=== PATIENT | male | born 1960 | race Caucasian/White ===

== ENCOUNTER 2019-04-24 08:31 | Emergency (ER) | payer BC ==
--- NOTE | 2019-04-24 09:21 | EDM.PDOC ---
ED HPI GENERAL MEDICAL PROBLEM - General Chief Complaint: Chest Pain Stated Complaint: CHEST PAIN, TIGHTNESS, SOB, PAIN IN RIGHT ARM Time Seen by Provider: 04/24/19 09:05 Source of Information: Reports: Patient History Limitations: Reports: No Limitations - History of Present Illness INITIAL COMMENTS - FREE TEXT/NARRATIVE: 58-year-old male in the emergency room today with substernal chest pain with breathing. It started at 11 PM last night, 10 hours ago and became significant enough for he couldn't sleep lying down. He is not short of breath at has pain with breathing. It is much better sitting up. It does not radiate but he had some mild right arm tingling this morning so came in to have it checked. He went into the clinic and sent was sent to the emergency room. He has no fever or chills, no cough, no shortness of breath or abdominal pain. He has pain only with a deep breath, it is not related to any other activity other than lying down. His last cardiology recheck 2 months ago was excellent, the extended his recheck appointment to 2 years. He has a pacemaker and received cardiac stents 3 years ago. Onset: Gradual Duration: Hour(s): (Symptoms have been for 10 hours) Location: Reports: Chest Quality: Reports: Sharp, Stabbing (With deep breath) Worsens with: Reports: Other (Breathing and lying down is more painful) Anterior Chest Pain Score (Numeric/FACES): 3 - Related Data Allergies Allergy/AdvReac Type Severity Reaction Status Date / Time No Known Allergies Allergy Verified 04/24/19 08:41 Home Meds: Home Meds Aspirin 81 mg PO DAILY 01/12/16 [History] atorvaSTATin [Lipitor] 40 mg PO ONETIME 04/14/16 [History] Carvedilol [Coreg] 25 mg PO BID 04/24/19 [History] Lisinopril 20 mg PO BID 04/24/19 [History] Spironolactone [Aldactone] 25 mg PO DAILY 04/24/19 [History] Past Medical History Cardiovascular History: Reports: Aneurysm, CAD, Heart Failure, High Cholesterol , Hypertension, Pacemaker, Stents Gastrointestinal History: Reports: Pancreatitis Other Gastrointestinal History: stent placed in the pancreatict duct. Musculoskeletal History: Reports: Back Pain, Chronic Endocrine/Metabolic History: Reports: Obesity/BMI 30+ - Infectious Disease History Infectious Disease History: Reports: Chicken Pox - Past Surgical History HEENT Surgical History: Reports: Oral Surgery GI Surgical History: Reports: Appendectomy, Cholecystectomy, Colonoscopy Social & Family History - Family History Cardiac: Reports: CAD, Cardiomyopathy Neurological: Reports: CVA - Tobacco Use Smoking Status *Q: Never Smoker Second Hand Smoke Exposure: No - Caffeine Use Caffeine Use: Reports: Coffee, Soda - Recreational Drug Use Recreational Drug Use: No ED ROS GENERAL - Review of Systems Review Of Systems: See Below Constitutional: Denies: Fever, Chills HEENT: Reports: No Symptoms Respiratory: Reports: Pleuritic Chest Pain. Denies: Shortness of Breath Cardiovascular: Reports: Chest Pain GI/Abdominal: Denies: Abdominal Pain, Nausea, Vomiting : Reports: No Symptoms Skin: Reports: No Symptoms. Denies: Rash Neurological: Reports: Paresthesia (Mild tingling extending down the right arm) Psychiatric: Reports: No Symptoms ED EXAM, GENERAL - Physical Exam Exam: See Below Exam Limited By: No Limitations General Appearance: Alert, No Apparent Distress Head: Atraumatic Respiratory/Chest: No Respiratory Distress, Lungs Clear Cardiovascular: Regular Rate, Rhythm GI/Abdominal: Soft, Non-Tender Extremities: Normal Inspection. No: Pedal Edema Neurological: Alert, Oriented EKG INTERPRETATION EKG Date: 04/24/19 Time: 09:25 Comparison: No Change EKG Interpretation Comments: Paced rhythm Course - Vital Signs Last Recorded V/S: Last Vital Signs Temp 97.5 F 04/24/19 09:53 Pulse 66 04/24/19 09:53 Resp 16 04/24/19 09:53 BP 156/87 H 04/24/19 09:53 Pulse Ox 94 L 04/24/19 09:53 - Orders/Labs/Meds Orders: Active Orders 24 hr Category Date Time Status EKG Documentation Completion [RC] ASDIRECTED Care 04/24/19 09:13 Active EKG 12 Lead [EK] Routine Ther 04/24/19 09:13 Ordered Labs: Laboratory Tests 04/24/19 Range/Units 09:22 Troponin I < 0.017 (0.000-0.056) ng/mL - Re-Assessments/Exams Free Text/Narrative Re-Assessment/Exam: 04/24/19 09:45 Vitals are stable, patient's EKG shows a atrial paced rhythm as expected. Exam was basically unremarkable, so a troponin and two-view chest x-ray were obtained. 04/24/19 09:52 Two-view chest x-ray shows no acute findings and troponin 0. Patient remained comfortable. I encouraged him to add an anti-inflammatory to his medications for the next couple of days and increase activity as tolerated. He'll return if he gets chest pain with activity or his symptoms change such as fever or more shortness of breath. Also consider rechecking early next week if not improving satisfactorily. Departure - Departure Time of Disposition: 09:59 Disposition: Home, Self-Care 01 Condition: Good Clinical Impression: Chest pain, atypical - Discharge Information Instructions: Nonspecific Chest Pain Referrals: Denny Gaviria MD [Primary Care Provider] - Forms: ED Department Discharge Care Plan Goals: Continue your current medications, adding ibuprofen and Tylenol as needed for pain. Increase activity as tolerated and return anytime if worsening such as increased shortness of breath or chest pain, fever, abdominal pain or other concerns. Consider rechecking next week if not improving satisfactorily. - My Orders Last 24 Hours: My Active Orders 04/24/19 09:13 EKG Documentation Completion [RC] ASDIRECTED EKG 12 Lead [EK] Routine - Assessment/Plan Last 24 Hours: My Active Orders 04/24/19 09:13 EKG Documentation Completion [RC] ASDIRECTED EKG 12 Lead [EK] Routine
[2019-04-24 09:54] VITALS: BP 156/87; PULSE 66
--- NOTE | 2019-04-24 10:03 | CRLCR ---
Indication: Dyspnea Technique: Chest 2 views Comparison: None Findings: Cardiovascular and mediastinum: AICD is present. Moderate cardiomegaly. Normal pulmonary vasculature. Lungs and pleural spaces: Lungs are clear. No sign of infiltrate or mass. No sign of pleural effusion. No pneumothorax. Bones and soft tissues: No significant findings. Impression: Moderate cardiomegaly without further evidence of heart failure or other acute abnormality. Dictated by Jesus Lazo MD @ 04/24/2019 10:01:53 AM Dictated by: Jesus Lazo MD @ 04/24/2019 10:02:04 (Electronically Signed)
== END 2019-04-24 09:59 | disposition home or self-care (01) ==
LOC: JP.ED 08:31
DX: R07.89 Other chest pain (principal); I11.0 Hypertensive heart disease with heart failure; I50.9 Heart failure, unspecified; E66.9 Obesity, unspecified; Z79.82 Long term (current) use of aspirin; Z79.899 Other long term (current) drug therapy; Z95.5 Presence of coronary angioplasty implant and graft; Z98.890 Other specified postprocedural states; Z90.49 Acquired absence of other specified parts of digestive tract; Z95.0 Presence of cardiac pacemaker
CPT/HCPCS: 36415; 71046; 84484; 93005; 99285-25

== ENCOUNTER 2021-07-28 17:34 | Inpatient (IN) | payer BC, MEDICAID ==
--- NOTE | 2021-07-28 18:59 | EDM.PDOC ---
ED HPI GENERAL MEDICAL PROBLEM - General Chief Complaint: Respiratory Problem Stated Complaint: COVID POSITIVE SOB Time Seen by Provider: 07/28/21 18:37 Source of Information: Reports: Patient History Limitations: Reports: No Limitations - History of Present Illness INITIAL COMMENTS - FREE TEXT/NARRATIVE: Natalio is a 61-year-old male presenting to the ED for increasing shortness of breath and intermittent hypoxia secondary to being diagnosed with COVID-19. Patient was starting to exhibit symptoms 1 week ago and underwent testing at the [facility] yesterday which was positive for COVID-19. He is set up for monoclonal antibody therapy at [facility] on Sunday. The patient has a past medical history significant for coronary artery disease, obstructive sleep apnea using CPAP, obesity, and a dilated cardiomyopathy. He uses a CPAP at night to sleep. He notes that when he has been sitting in his recliner at home watching TV that his SPO2 has dropped below 90%. In the ED, the patient's SPO2 is been 93 to 94% on room air. Patient has had diminished appetite for the last several days but has been pushing fluids. - Related Data Allergies Allergy/AdvReac Type Severity Reaction Status Date / Time No Known Allergies Allergy Verified 07/28/21 18:07 Home Meds: Home Meds Aspirin 81 mg PO DAILY 01/12/16 [History] atorvaSTATin [Lipitor] 40 mg PO ONETIME 04/14/16 [History] Lisinopril 20 mg PO BID 04/24/19 [History] Spironolactone [Aldactone] 25 mg PO DAILY 04/24/19 [History] carvediloL [Coreg] 25 mg PO BID 04/24/19 [History] Albuterol Sulfate [Albuterol Sulfate Hfa] 8.5 gm IH Q4H PRN 07/28/21 [History] Apixaban [Eliquis] 5 mg PO DAILY 07/28/21 [History] Fluticasone Propion/Salmeterol [Advair Hfa 230-21 Mcg Inhaler] 2 puff IH Q8H PRN 07/28/21 [History] Ondansetron [Zofran ODT] 4 mg PO Q6H PRN 07/28/21 [History] Sotalol [Betapace, Sorine] 80 mg PO BID 07/28/21 [History] Past Medical History HEENT History: Reports: Impaired Vision Cardiovascular History: Reports: Aneurysm, CAD, Heart Failure, High Cholesterol, Hypertension, Pacemaker, Stents Respiratory History: Reports: Sleep Apnea Other Respiratory History: cpap Gastrointestinal History: Reports: Pancreatitis Other Gastrointestinal History: stent placed in the pancreatict duct. Musculoskeletal History: Reports: Back Pain, Chronic Endocrine/Metabolic History: Reports: Obesity/BMI 30+ Hematologic History: Reports: Anticoagulation Therapy - Infectious Disease History Infectious Disease History: Reports: Chicken Pox, Novel Coronavirus - Past Surgical History Head Surgeries/Procedures: Reports: None HEENT Surgical History: Reports: Oral Surgery Cardiovascular Surgical History: Reports: Coronary Artery Stent Respiratory Surgical History: Reports: None GI Surgical History: Reports: Appendectomy, Cholecystectomy, Colonoscopy Endocrine Surgical History: Reports: None Musculoskeletal Surgical History: Reports: None Dermatological Surgical History: Reports: None Social & Family History - Family History Cardiac: Reports: CAD, Cardiomyopathy Neurological: Reports: CVA - Tobacco Use Tobacco Use Status *Q: Never Tobacco User Second Hand Smoke Exposure: No - Caffeine Use Caffeine Use: Reports: Coffee - Recreational Drug Use Recreational Drug Use: No ED ROS GENERAL - Review of Systems Review Of Systems: See Below Constitutional: Reports: Weakness, Decreased Appetite HEENT: Reports: Rhinitis Respiratory: Reports: Shortness of Breath, Cough Cardiovascular: Reports: No Symptoms Endocrine: Reports: No Symptoms GI/Abdominal: Reports: Decreased Appetite, Nausea. Denies: Constipation, Diarrhea, Vomiting : Reports: No Symptoms Musculoskeletal: Reports: Muscle Pain Skin: Reports: No Symptoms Neurological: Reports: No Symptoms Psychiatric: Reports: No Symptoms Hematologic/Lymphatic: Reports: No Symptoms Immunologic: Reports: No Symptoms ED EXAM, GENERAL - Physical Exam Exam: See Below Exam Limited By: No Limitations General Appearance: Alert, Mild Distress, Obese Eye Exam: Bilateral Eye: EOMI, PERRL Throat/Mouth: Normal Inspection, Normal Oropharynx, Normal Voice, No Airway Compromise Head: Atraumatic, Normocephalic Neck: Normal Inspection, Supple. No: Lymphadenopathy (R), Lymphadenopathy (L) Respiratory/Chest: No Respiratory Distress, No Accessory Muscle Use, Decreased Breath Sounds (Scattered rhonchi and his breath sounds in the bases), Rhonchi Cardiovascular: Normal Peripheral Pulses, Regular Rate, Rhythm, No Murmur GI/Abdominal: Normal Bowel Sounds, Soft, Non-Tender Extremities: Normal Inspection, Normal Range of Motion, No Pedal Edema Neurological: Alert, Oriented, Normal Cognition, No Motor/Sensory Deficits Psychiatric: Normal Affect, Anxious Skin Exam: Warm, Dry Course - Vital Signs Last Recorded V/S: Last Vital Signs Temp 36.2 C 07/28/21 18:12 Pulse 76 07/28/21 18:12 Resp 22 H 07/28/21 18:12 BP 113/56 L 07/28/21 18:12 Pulse Ox 90 L 07/28/21 18:12 - Orders/Labs/Meds Orders: Active Orders 24 hr Category Date Time Status Chest 1V Frontal [CR] Stat Exams 07/28/21 18:44 Taken Labs: Laboratory Tests 07/28/21 07/28/21 Range/Units 18:49 18:49 WBC 5.6 (4.5-11.0) K/uL RBC 4.62 (4.30-5.90) M/uL Hgb 13.6 (12.0-15.0) g/dL Hct 40.5 (40.0-54.0) % MCV 88 (80-98) fL MCH 29 (27-31) pg MCHC 34 (32-36) % Plt Count 143 L (150-400) K/uL Neut % (Auto) 74.8 H (36-66) % Lymph % (Auto) 15.1 L (24-44) % [place] % (Auto) 9.9 H (2-6) % Eos % (Auto) 0.0 L (2-4) % Baso % (Auto) 0.2 (0-1) % Sodium 131 L (140-148) mmol/L Potassium 4.4 (3.6-5.2) mmol/L Chloride 94 L (100-108) mmol/L Carbon Dioxide 26 (21-32) mmol/L Anion Gap 15.4 H (5.0-14.0) mmol/L BUN 19 H (7-18) mg/dL Creatinine 1.4 H D (0.8-1.3) mg/dL Est Cr Clr Drug Dosing 60.05 mL/min Estimated GFR (MDRD) 51 L (>60) Glucose 105 (74-106) mg/dL Calcium 8.3 L (8.5-10.1) mg/dL Total Bilirubin 0.8 (0.2-1.0) mg/dL AST 37 D (15-37) U/L ALT 27 (12-78) U/L Alkaline Phosphatase 87 (46-116) U/L C-Reactive Protein 7.51 H (0.0-0.3) mg/dL Total Protein 6.8 (6.4-8.2) g/dL Albumin 3.6 (3.4-5.0) g/dL Globulin 3.2 (2.3-3.5) g/dL Albumin/Globulin Ratio 1.1 L (1.2-2.2) - Radiology Interpretation Free Text/Narrative:: I reviewed the one-view portable chest x-ray showing scattered infiltrates with groundglass appearance consistent with Covid pneumonia. - Re-Assessments/Exams Free Text/Narrative Re-Assessment/Exam: 07/28/21 20:29 the patient's labs showing a normal CBC with a leukocyte count of 5.6, hemoglobin of 13.6, hematocrit of 40.5, and platelet count 143,000. Patient's comprehensive metabolic panel shows a sodium 131, potassium 4.4, ch loride of 94, bicarbonate of 26, BUN of 19 with a creatinine 1.4 and a glucose of 105. The calcium is 8.3. The remainder of the comprehensive metabolic panel is unremarkable. C-reactive protein is elevated at 7.51. Patient tested Covid positive yesterday at the [facility]. A chest x-ray is obtained today showing bilateral fluffy infiltrates with groundglass appearance consistent with Covid pneumonia. The patient initially had sats in the low 90s, however, while in the ER he dropped down into the mid 80s and was started on oxygen via nasal cannula at 3 L/min. With this, I do believe he likely is going require hospitalization. We will initiate therapy with remdesivir 200 mg IV today with 100 mg daily thereafter and dexamethasone 6 mg IV. I discussed the case with Marietta Flowers CNP who will arrange for admission of the patient. Departure - Departure Time of Disposition: 20:31 Disposition: Admitted As Inpatient 65 Clinical Impression: Pneumonia due to COVID-19 virus, Hypoxia - Discharge Information Referrals: Denny Gaviria MD [Primary Care Provider] - Forms: ED Department Discharge Sepsis Event Note (ED) - Focused Exam Vital Signs: Vital Signs Temp Pulse Resp BP Pulse Ox 07/28/21 18:12 36.2 C 76 22 H 113/56 L 90 L 07/28/21 18:05 36.2 C 76 22 H 113/56 L 90 L - Problem List & Annotations (1) Hypoxia SNOMED Code(s): 575646610 Code(s): R09.02 - HYPOXEMIA Status: Acute Priority: High Current Visit: Yes (2) Pneumonia due to COVID-19 virus SNOMED Code(s): 398387436180381290 Code(s): U07.1 - COVID-19; J12.82 - PNEUMONIA DUE TO CORONAVIRUS DISEASE 2019 Status: Acute Priority: High Current Visit: Yes - Problem List Review Problem List Initiated/Reviewed/Updated: Yes - My Orders Last 24 Hours: My Active Orders 07/28/21 18:44 Chest 1V Frontal [CR] Stat - Assessment/Plan Last 24 Hours: My Active Orders 07/28/21 18:44 Chest 1V Frontal [CR] Stat
[2021-07-28] MEDS ORDERED: REMDESIVIR 200 MG in Sodium Chloride 0.9% 250 ML IV ONE (20:32)
[2021-07-28] MEDS ORDERED: Acetaminophen 325 MG Tab PO PRN ×2 (20:32→22:31)
[2021-07-28] MEDS ORDERED: Dexamethasone 4 MG/ML SDV IVPUSH SCH (20:45)
[2021-07-28] MEDS ORDERED: Sodium Chloride 0.9% 10 ML Syringe FLUSH PRN (20:47)
--- NOTE | 2021-07-28 21:43 | PCM.HP.2 ---
H&P History of Present Illness - General Date of Service: 07/28/21 Admit Problem/Dx: Admission Diagnosis/Problem Admission Diagnosis/Problem Pneumonia Source of Information: Patient, Provider, RN History Limitations: Reports: Respiratory Distress - History of Present Illness Initial Comments - Free Text/Narative: Chief Complaint: can't breath- has Covid-19 This is a 61 year old male who drove himself to the ER with shortness of breath and illness due to Covid-19. He reports has been sick since last Sunday (7 days) with fever,chills, cough, shortness of breath and diarrhea. Last meal two days ago because no appetite and stomach feels upset. Past medical- CAD, pacemaker, cardiac stents x3, Eliquis, obstructive sleep apnea, cpap at night, morbid obesity >320 pounds, cardiomegaly Medications- took am doses of medication- not the evening doses last meal- Sunday Vaccination- not vaccinated for Covid 19 or influenza last visit to clinic- yesterday when tested positive for Covid-19 and treated with inhalers Onset of Symptoms: Reports: Gradual Symptom Onset Date: 07/22/21 Duration of Symptoms: Reports: Day(s):, Getting Worse Location: Reports: Generalized Severity: Severe Improves with: Reports: Rest Worsens with: Reports: Movement Context: Reports: Other (Covid-19 positive test 07-27-2021) Associated Symptoms: Reports: Cough, Fever/Chills, Headaches, Loss of Appetite, Malaise, Nausea/Vomiting, Shortness of Breath, Weakness - Related Data Allergies/Adverse Reactions: Allergies Allergy/AdvReac Type Severity Reaction Status Date / Time No Known Allergies Allergy Verified 07/28/21 18:07 Home Medications: Home Meds Aspirin 81 mg PO DAILY 01/12/16 [History] atorvaSTATin [Lipitor] 40 mg PO ONETIME 04/14/16 [History] Lisinopril 20 mg PO BID 04/24/19 [History] Spironolactone [Aldactone] 25 mg PO DAILY 04/24/19 [History] carvediloL [Coreg] 25 mg PO BID 04/24/19 [History] Albuterol Sulfate [Albuterol Sulfate Hfa] 8.5 gm IH Q4H PRN 07/28/21 [History] Apixaban [Eliquis] 5 mg PO DAILY 07/28/21 [History] Fluticasone Propion/Salmeterol [Advair Hfa 230-21 Mcg Inhaler] 2 puff IH Q8H PRN 07/28/21 [History] Ondansetron [Zofran ODT] 4 mg PO Q6H PRN 07/28/21 [History] Sotalol [Betapace, Sorine] 80 mg PO BID 07/28/21 [History] Past Medical History HEENT History: Reports: Impaired Vision Cardiovascular History: Reports: Aneurysm, CAD, Heart Failure, High Cholesterol, Hypertension, Pacemaker, Stents Respiratory History: Reports: Sleep Apnea Other Respiratory History: cpap Gastrointestinal History: Reports: Pancreatitis Other Gastrointestinal History: stent placed in the pancreatict duct. Musculoskeletal History: Reports: Back Pain, Chronic Endocrine/Metabolic History: Reports: Obesity/BMI 30+ Hematologic History: Reports: Anticoagulation Therapy - Infectious Disease History Infectious Disease History: Reports: Chicken Pox, Novel Coronavirus - Past Surgical History Head Surgeries/Procedures: Reports: None HEENT Surgical History: Reports: Oral Surgery Cardiovascular Surgical History: Reports: Coronary Artery Stent Respiratory Surgical History: Reports: None GI Surgical History: Reports: Appendectomy, Cholecystectomy, Colonoscopy Endocrine Surgical History: Reports: None Musculoskeletal Surgical History: Reports: None Dermatological Surgical History: Reports: None Social & Family History - Family History Cardiac: Reports: CAD, Cardiomyopathy Neurological: Reports: CVA - Tobacco Use Tobacco Use Status *Q: Never Tobacco User Second Hand Smoke Exposure: No - Caffeine Use Caffeine Use: Reports: Coffee - Recreational Drug Use Recreational Drug Use: No - Living Situation & Occupation Living situation: Reports: Single, Alone Occupation: Employed (lives alone, [place] [employer]) H&P Review of Systems - Review of Systems: Review Of Systems: See Below General: Reports: Fever, Chills, Malaise, Weakness, Fatigue, Decreased Appetite HEENT: Reports: Glasses Pulmonary: Reports: Shortness of Breath, Wheezing, Cough, Sputum Cardiovascular: Reports: No Symptoms Gastrointestinal: Reports: Diarrhea, Decreased Appetite, Nausea Genitourinary: Reports: No Symptoms Musculoskeletal: Reports: No Symptoms Skin: Reports: No Symptoms Psychiatric: Reports: No Symptoms Neurological: Reports: No Symptoms Hematologic/Lymphatic: Reports: No Symptoms Immunologic: Reports: No Symptoms Exam - Exam Exam: See Below - Vital Signs Vital Signs: Last Vital Signs Temp 97.1 F 07/28/21 18:12 Pulse 76 07/28/21 18:12 Resp 22 H 07/28/21 18:12 BP 113/56 L 07/28/21 18:12 Pulse Ox 90 L 07/28/21 18:12 Weight: 330 lb - Exam Quality Assessment: Supplemental Oxygen, DVT Prophylaxis General: Alert, Oriented, Cooperative, Moderate Distress HEENT: PERRLA, Conjunctiva Clear, EOMI, Hearing Intact Neck: Supple, Trachea Midline, Full Range of Motion Lungs: Decreased Breath Sounds, Crackles, Wheezing Cardiovascular: Regular Rate, Regular Rhythm GI/Abdominal Exam: Normal Bowel Sounds, Soft, Non-Tender, No Distention (Male) Exam: Deferred Rectal (Males) Exam: Deferred Back Exam: Full Range of Motion Extremities: Normal Inspection, Normal Range of Motion, Non-Tender, No Pedal Edema, Normal Capillary Refill Peripheral Pulses: 2+: Radial (L), Radial (R) Skin: Warm, Dry, Intact Neurological: Strength Equal Bilateral Neuro Extensive - Mental Status: Alert, Oriented x3, Normal Mood/Affect, Normal Cognition Neuro Extensive - Motor, Sensory, Reflexes: Normal Gait Psychiatric: Alert, Anxious - Patient Data Lab Results Last 24 hrs: Laboratory Results - last 24 hr 07/28/21 07/28/21 07/28/21 Range/Units 18:49 18:49 20:32 WBC 5.6 (4.5-11.0) K/uL RBC 4.62 (4.30-5.90) M/uL Hgb 13.6 (12.0-15.0) g/dL Hct 40.5 (40.0-54.0) % MCV 88 (80-98) fL MCH 29 (27-31) pg MCHC 34 (32-36) % Plt Count 143 L (150-400) K/uL Neut % (Auto) 74.8 H (36-66) % Lymph % (Auto) 15.1 L (24-44) % [place] % (Auto) 9.9 H (2-6) % Eos % (Auto) 0.0 L (2-4) % Baso % (Auto) 0.2 (0-1) % PT (9.2-10.6) sec INR D-Dimer, Quantitative (0.0-500.0) ng/mL Puncture Site Rt brachial ABG pH 7.434 (7.350-7.450) ABG pCO2 34.1 L (35.0-42.0) mmHg ABG pO2 82.7 (75.0-100.0) mmHg ABG HCO3 22.4 (22.0-26.0) mmol/L ABG Total CO2 19.9 L (23.0-27.0) mmol/L ABG O2 Saturation 96.1 (95.0-98.0) % ABG O2 Content 17.3 (15.0-23.0) %vol ABG Base Excess -0.8 mm/L ABG Hemoglobin 13.0 L (13.5-18.0) g/dL ABG Oxyhemoglobin 94.3 % ABG Carboxyhemoglobin 0.9 (0.0-1.6) % ABG Methemoglobin 1.0 % Ander Test Not performed O2 Delivery Device Nasal cannula Oxygen Flow Rate 5.0 L Sodium 131 L (140-148) mmol/L Potassium 4.4 (3.6-5.2) mmol/L Chloride 94 L (100-108) mmol/L Carbon Dioxide 26 (21-32) mmol/L Anion Gap 15.4 H (5.0-14.0) mmol/L BUN 19 H (7-18) mg/dL Creatinine 1.4 H D (0.8-1.3) mg/dL Est Cr Clr Drug Dosing 60.05 mL/min Estimated GFR (MDRD) 51 L (>60) Glucose 105 (74-106) mg/dL Lactic Acid (0.4-2.0) mmol/L Calcium 8.3 L (8.5-10.1) mg/dL Ferritin (8-388) ng/ml Total Bilirubin 0.8 (0.2-1.0) mg/dL Direct Bilirubin (0.0-0.2) mg/dL Indirect Bilirubin AST 37 D (15-37) U/L ALT 27 (12-78) U/L Alkaline Phosphatase 87 (46-116) U/L C-Reactive Protein 7.51 H (0.0-0.3) mg/dL NT-Pro-B Natriuret Pep (5-125) pg/mL Total Protein 6.8 (6.4-8.2) g/dL Albumin 3.6 (3.4-5.0) g/dL Globulin 3.2 (2.3-3.5) g/dL Albumin/Globulin Ratio 1.1 L (1.2-2.2) Procalcitonin ng/mL 07/28/21 07/28/21 07/28/21 Range/Units 20:37 20:37 20:37 WBC (4.5-11.0) K/uL RBC (4.30-5.90) M/uL Hgb (12.0-15.0) g/dL Hct (40.0-54.0) % MCV (80-98) fL MCH (27-31) pg MCHC (32-36) % Plt Count (150-400) K/uL Neut % (Auto) (36-66) % Lymph % (Auto) (24-44) % [place] % (Auto) (2-6) % Eos % (Auto) (2-4) % Baso % (Auto) (0-1) % PT 11.8 H (9.2-10.6) sec INR 1.2 D-Dimer, Quantitative 820.37 H (0.0-500.0) ng/mL Puncture Site ABG pH (7.350-7.450) ABG pCO2 (35.0-42.0) mmHg ABG pO2 (75.0-100.0) mmHg ABG HCO3 (22.0-26.0) mmol/L ABG Total CO2 (23.0-27.0) mmol/L ABG O2 Saturation (95.0-98.0) % ABG O2 Content (15.0-23.0) %vol ABG Base Excess mm/L ABG Hemoglobin (13.5-18.0) g/dL ABG Oxyhemoglobin % ABG Carboxyhemoglobin (0.0-1.6) % ABG Methemoglobin % Ander Test O2 Delivery Device Oxygen Flow Rate L Sodium (140-148) mmol/L Potassium (3.6-5.2) mmol/L Chloride (100-108) mmol/L Carbon Dioxide (21-32) mmol/L Anion Gap (5.0-14.0) mmol/L BUN (7-18) mg/dL Creatinine (0.8-1.3) mg/dL Est Cr Clr Drug Dosing mL/min Estimated GFR (MDRD) (>60) Glucose (74-106) mg/dL Lactic Acid (0.4-2.0) mmol/L Calcium (8.5-10.1) mg/dL Ferritin 1612 H (8-388) ng/ml Total Bilirubin (0.2-1.0) mg/dL Direct Bilirubin (0.0-0.2) mg/dL Indirect Bilirubin AST (15-37) U/L ALT (12-78) U/L Alkaline Phosphatase (46-116) U/L C-Reactive Protein (0.0-0.3) mg/dL NT-Pro-B Natriuret Pep (5-125) pg/mL Total Protein (6.4-8.2) g/dL Albumin (3.4-5.0) g/dL Globulin (2.3-3.5) g/dL Albumin/Globulin Ratio (1.2-2.2) Procalcitonin ng/mL 07/28/21 07/28/21 07/28/21 Range/Units 20:37 20:37 20:37 WBC (4.5-11.0) K/uL RBC (4.30-5.90) M/uL Hgb (12.0-15.0) g/dL Hct (40.0-54.0) % MCV (80-98) fL MCH (27-31) pg MCHC (32-36) % Plt Count (150-400) K/uL Neut % (Auto) (36-66) % Lymph % (Auto) (24-44) % [place] % (Auto) (2-6) % Eos % (Auto) (2-4) % Baso % (Auto) (0-1) % PT (9.2-10.6) sec INR D-Dimer, Quantitative (0.0-500.0) ng/mL Puncture Site ABG pH (7.350-7.450) ABG pCO2 (35.0-42.0) mmHg ABG pO2 (75.0-100.0) mmHg ABG HCO3 (22.0-26.0) mmol/L ABG Total CO2 (23.0-27.0) mmol/L ABG O2 Saturation (95.0-98.0) % ABG O2 Content (15.0-23.0) %vol ABG Base Excess mm/L ABG Hemoglobin (13.5-18.0) g/dL ABG Oxyhemoglobin % ABG Carboxyhemoglobin (0.0-1.6) % ABG Methemoglobin % Ander Test O2 Delivery Device Oxygen Flow Rate L Sodium (140-148) mmol/L Potassium (3.6-5.2) mmol/L Chloride (100-108) mmol/L Carbon Dioxide (21-32) mmol/L Anion Gap (5.0-14.0) mmol/L BUN (7-18) mg/dL Creatinine (0.8-1.3) mg/dL Est Cr Clr Drug Dosing mL/min Estimated GFR (MDRD) (>60) Glucose (74-106) mg/dL Lactic Acid 1.2 (0.4-2.0) mmol/L Calcium (8.5-10.1) mg/dL Ferritin (8-388) ng/ml Total Bilirubin (0.2-1.0) mg/dL Direct Bilirubin (0.0-0.2) mg/dL Indirect Bilirubin AST (15-37) U/L ALT (12-78) U/L Alkaline Phosphatase (46-116) U/L C-Reactive Protein (0.0-0.3) mg/dL NT-Pro-B Natriuret Pep 436 H (5-125) pg/mL Total Protein (6.4-8.2) g/dL Albumin (3.4-5.0) g/dL Globulin (2.3-3.5) g/dL Albumin/Globulin Ratio (1.2-2.2) Procalcitonin 0.11 ng/mL 07/28/21 Range/Units 20:37 WBC (4.5-11.0) K/uL RBC (4.30-5.90) M/uL Hgb (12.0-15.0) g/dL Hct (40.0-54.0) % MCV (80-98) fL MCH (27-31) pg MCHC (32-36) % Plt Count (150-400) K/uL Neut % (Auto) (36-66) % Lymph % (Auto) (24-44) % [place] % (Auto) (2-6) % Eos % (Auto) (2-4) % Baso % (Auto) (0-1) % PT (9.2-10.6) sec INR D-Dimer, Quantitative (0.0-500.0) ng/mL Puncture Site ABG pH (7.350-7.450) ABG pCO2 (35.0-42.0) mmHg ABG pO2 (75.0-100.0) mmHg ABG HCO3 (22.0-26.0) mmol/L ABG Total CO2 (23.0-27.0) mmol/L ABG O2 Saturation (95.0-98.0) % ABG O2 Content (15.0-23.0) %vol ABG Base Excess mm/L ABG Hemoglobin (13.5-18.0) g/dL ABG Oxyhemoglobin % ABG Carboxyhemoglobin (0.0-1.6) % ABG Methemoglobin % Ander Test O2 Delivery Device Oxygen Flow Rate L Sodium (140-148) mmol/L Potassium (3.6-5.2) mmol/L Chloride (100-108) mmol/L Carbon Dioxide (21-32) mmol/L Anion Gap (5.0-14.0) mmol/L BUN (7-18) mg/dL Creatinine (0.8-1.3) mg/dL Est Cr Clr Drug Dosing mL/min Estimated GFR (MDRD) (>60) Glucose (74-106) mg/dL Lactic Acid (0.4-2.0) mmol/L Calcium (8.5-10.1) mg/dL Ferritin (8-388) ng/ml Total Bilirubin 0.8 (0.2-1.0) mg/dL Direct Bilirubin 0.21 H (0.0-0.2) mg/dL Indirect Bilirubin 0.59 AST 38 H (15-37) U/L ALT 28 (12-78) U/L Alkaline Phosphatase 87 (46-116) U/L C-Reactive Protein (0.0-0.3) mg/dL NT-Pro-B Natriuret Pep (5-125) pg/mL Total Protein 6.8 (6.4-8.2) g/dL Albumin 3.6 (3.4-5.0) g/dL Globulin 3.2 (2.3-3.5) g/dL Albumin/Globulin Ratio 1.1 L (1.2-2.2) Procalcitonin ng/mL Result Diagrams: 07/28/21 18:49 07/28/21 18:49 Sepsis Event Note - Focused Exam Vital Signs: Vital Signs Temp Pulse Resp BP Pulse Ox 07/28/21 18:12 97.1 F 76 22 H 113/56 L 90 L 07/28/21 18:05 97.1 F 76 22 H 113/56 L 90 L - Problem List (1) Pneumonia due to COVID-19 virus SNOMED Code(s): 665514809775686704 ICD Code: U07.1 - COVID-19; J12.82 - PNEUMONIA DUE TO CORONAVIRUS DISEASE 2019 Status: Acute Priority: High Current Visit: Yes (2) Congestive heart failure SNOMED Code(s): 60670098 ICD Code: I50.9 - HEART FAILURE, UNSPECIFIED Status: Chronic Priority: Medium Current Visit: Yes Qualifiers: Qualified Code(s): I50.43 - Acute on chronic combined systolic (congestive) and diastolic (congestive) heart failure (3) Hypertension SNOMED Code(s): 17061585 ICD Code: I10 - ESSENTIAL (PRIMARY) HYPERTENSION Status: Acute Priority: High Current Visit: Yes Qualifiers: Hypertension type: primary hypertension Qualified Code(s): I10 - Essential (primary) hypertension (4) Hx of heart artery stent SNOMED Code(s): 648154433, 504150763 ICD Code: Z95.5 - PRESENCE OF CORONARY ANGIOPLASTY IMPLANT AND GRAFT Status: Acute Current Visit: Yes (5) Obstructive sleep apnea of adult SNOMED Code(s): 8015708252974 ICD Code: G47.33 - OBSTRUCTIVE SLEEP APNEA (ADULT) (PEDIATRIC) Status: Acute Priority: High Current Visit: Yes Problem List Initiated/Reviewed/Updated: Yes Orders Last 24hrs: Active Orders 24 hr Category Date Time Status Patient Status Manage Transfer [TRANSFER] Routine ADT 07/28/21 20:53 Active Chest 1V Frontal [CR] Stat Exams 07/28/21 18:44 Taken HEPATIC FUNCTION PANEL,HFP [CHEM] DAILY Lab 07/29/21 20:45 Ordered HEPATIC FUNCTION PANEL,HFP [CHEM] DAILY Lab 07/30/21 20:45 Ordered HEPATIC FUNCTION PANEL,HFP [CHEM] DAILY Lab 07/31/21 20:45 Ordered HEPATIC FUNCTION PANEL,HFP [CHEM] DAILY Lab 08/01/21 20:45 Ordered Acetaminophen [TylenoL] Med 07/28/21 20:32 Active 650 mg PO Q4H PRN Sodium Chloride 0.9% [Saline Flush] Med 07/28/21 20:47 Active 10 ml FLUSH ASDIRECTED PRN dexAMETHasone [Decadron] Med 07/28/21 20:45 Active 6 mg IVPUSH DAILY Isolation [COMM] Stat Oth 07/28/21 20:32 Ordered Saline Lock Insert [OM.PC] Routine Oth 07/28/21 20:47 Ordered Resuscitation Status Routine Resus Stat 07/28/21 21:07 Ordered Medication Orders Acetaminophen (Acetaminophen 325 Mg Tab) 650 mg PO Q4H PRN PRN Reason: Fever Greater Than 101 Dexamethasone (Dexamethasone 4 Mg/Ml Sdv) 6 mg IVPUSH DAILY MALU Stop: 08/06/21 09:01 Sodium Chloride (Sodium Chloride 0.9% 10 Ml Syringe) 10 ml FLUSH ASDIRECTED PRN PRN Reason: Keep Vein Open Assessment/Plan Comment:: ASSESSMENT AND PLAN - COVID-19 pneumonia-complicated by hypoxia. He has not been vaccinated. Tested positive on July 27, 2021. Elevation of D-dimer 820.37, elevation of CRP 7.51, Pro-bnp 436, Procalcitonin 0.11, Lactic acid 1.2. will start on Remdesivir, Dexamethasone and increase home Eliquis 5mg to bid. -Dexamethasone 6 mg daily- give first dose on 07/28/2021 -Remdesivir 200mg given in ER then 100mg daily -Supplement oxygen as needed -Symptomatic management of cough -Goal of negative fluid balance each day -Isolation precautions -daily labs CBC, BMP, LFTS Essential hypertension-blood pressure remains in the normal range at this time. -Continue Lisinopril 20 mg po bid -continue Spironolactone 25 mg po daily Cardiovascular disease - history of cardiac stent x 3, CHF, Cardiomegaly, pacemaker,hyperlipidemia -Coreg 25 mg po bid -Lipitor 40 mg daily -Eliquis 5 mg po bid -baby asa -cardiac monitoring. Obstructive sleep apnea- home C-pap at night -continuous pulse ox. -supplemental oxygen Maintenance issues - - DVT prophylaxis - Eliquis 5 mg po bid - GI prophylaxis -PPI - Nutrition -regular - James catheter -not indicated CODE STATUS -full code Admission justification -this patient will be admitted for inpatient services and is medically appropriate meeting medical necessity for inpatient admission as outlined in my documentation. I reasonably expect the patient will require inpatient services that span a period time over 2 midnights. I reasonably expect this patient to be discharged or transferred within 96 hours after admission to the [facility]. Disposition -I would anticipate discharge home Primary care physician -Dr. Gaviria Hospitalist - Dr. Bradford Baker M.D. - Mortality Measure Prognosis:: Good - Mortality Measure Prognosis:: Good
[2021-07-28] MEDS ORDERED: Morphine 2 MG/ML SYRINGE IVPUSH PRN (22:31)
[2021-07-28] MEDS ORDERED: oxyCODONE 5 MG Tab PO PRN (22:31)
[2021-07-28] MEDS ORDERED: Formoterol/Mometasone 200-5 MCG 8.8 GM Inhaler IH PRN (22:31)
[2021-07-28] MEDS ORDERED: Ondansetron 4 MG Tab.DIS PO PRN (22:31)
[2021-07-28] MEDS ORDERED: Albuterol 8 GM Inhaler INH PRN (22:31)
[2021-07-28] MEDS ORDERED: Lisinopril 10 MG Tab ONE (23:18)
[2021-07-28] MEDS: Temazepam 15 MG Cap PO PRN (23:29)
[2021-07-28] MEDS: Carvedilol 12.5 MG Tab PO SCH (23:29)
[2021-07-28] MEDS: atorvaSTATin 20 MG Tab PO SCH (23:30)
[2021-07-28] MEDS: Sotalol 80 MG Tab PO SCH (23:30)
[2021-07-28] MEDS: Lisinopril 20 MG Tab PO SCH (23:30)
[2021-07-28] MEDS: Apixaban 5 MG Tab PO SCH (23:30)
[2021-07-29] MEDS ORDERED: Formoterol/Mometasone 200-5 MCG 8.8 GM Inhaler IH PRN (07:14)
[2021-07-29] MEDS ORDERED: Dexamethasone 4 MG/ML SDV IVPUSH SCH (09:00)
[2021-07-29] MEDS ORDERED: REMDESIVIR 100 MG in Sodium Chloride 0.9% 100 ML IV SCH (09:00)
[2021-07-29] MEDS: Spironolactone 25 MG Tab PO SCH (09:07)
[2021-07-29] MEDS: Apixaban 5 MG Tab PO SCH ×2 (09:08→20:58)
[2021-07-29] MEDS: Sotalol 80 MG Tab PO SCH ×2 (09:08→20:59)
[2021-07-29] MEDS: Aspirin 81 MG Tab.EC PO SCH (09:08)
[2021-07-29] MEDS: Lisinopril 20 MG Tab PO SCH ×2 (09:08→20:58)
[2021-07-29] MEDS: Carvedilol 12.5 MG Tab PO SCH ×2 (09:08→20:59)
--- NOTE | 2021-07-29 09:42 | CR ---
CHEST: Portable 07/20/2021 at 7:14 PM CLINICAL HISTORY:Cov, dyspnea COMPARISON:04/24/2019 FINDINGS: Heart is enlarged. Pulmonary vascularity is cephalized. Patient has a permanent cardiac pacer/defibrillator. There is patchy density in the right upper and midlung field. There are no effusions. Impression: Cardiomegaly with mild vascular cephalization may represent some pulmonary venous hypertension Superimposed patchy density in the right lung. This may represent pneumonia or pneumonitis
[2021-07-29] MEDS ORDERED: guaiFENesin 100 MG/5 ML Soln ML (118 ML Bottle) PO PRN (14:12)
[2021-07-29] MEDS: guaiFENesin/Dextromethorphan 100-10 MG/5 ML Soln 10 ML Cup PO PRN (14:47)
--- NOTE | 2021-07-29 14:47 | PCM.PN ---
- General Info Date of Service: 07/29/21 Subjective Update: Mr. Denson was admitted last night with COVID-19 infection and hypoxia. He has been started on usual course of dexamethasone and remdesivir. Level of dyspnea and hypoxia has remained stable since admission, currently on 5 L of oxygen via nasal cannula. Functional Status: Reports: Urinating. Denies: Tolerating Diet, Ambulating - Review of Systems General: Reports: Fever, Weakness, Fatigue, Chills Pulmonary: Reports: Shortness of Breath, Cough. Denies: Pleuritic Chest Pain, Sputum, Hemoptysis, Wheezing Cardiovascular: Reports: Dyspnea on Exertion. Denies: Chest Pain, Palpitations, Orthopnea, PND, Edema, Lightheadedness Gastrointestinal: Reports: No Symptoms Genitourinary: Reports: No Symptoms - Patient Data Vitals - Most Recent: Last Vital Signs Temp 96.3 F L 07/29/21 12:00 Pulse 63 07/29/21 12:00 Resp 16 07/29/21 12:00 BP 105/60 07/29/21 12:00 Pulse Ox 91 L 07/29/21 14:03 Weight - Most Recent: 326 lb I&O - Last 24 Hours: Intake & Output 07/28/21 07/29/21 07/29/21 22:59 06:59 14:59 Output Total 450 450 Balance -450 -450 Lab Results Last 24 Hours: Laboratory Results - last 24 hr 07/28/21 07/28/21 07/28/21 Range/Units 18:49 18:49 18:55 WBC 5.6 (4.5-11.0) K/uL RBC 4.62 (4.30-5.90) M/uL Hgb 13.6 (12.0-15.0) g/dL Hct 40.5 (40.0-54.0) % MCV 88 (80-98) fL MCH 29 (27-31) pg MCHC 34 (32-36) % Plt Count 143 L (150-400) K/uL Neut % (Auto) 74.8 H (36-66) % Lymph % (Auto) 15.1 L (24-44) % Mcminn % (Auto) 9.9 H (2-6) % Eos % (Auto) 0.0 L (2-4) % Baso % (Auto) 0.2 (0-1) % PT (9.2-10.6) sec INR D-Dimer, Quantitative (0.0-500.0) ng/mL Puncture Site ABG pH (7.350-7.450) ABG pCO2 (35.0-42.0) mmHg ABG pO2 (75.0-100.0) mmHg ABG HCO3 (22.0-26.0) mmol/L ABG Total CO2 (23.0-27.0) mmol/L ABG O2 Saturation (95.0-98.0) % ABG O2 Content (15.0-23.0) %vol ABG Base Excess mm/L ABG Hemoglobin (13.5-18.0) g/dL ABG Oxyhemoglobin % ABG Carboxyhemoglobin (0.0-1.6) % ABG Methemoglobin % Ander Test O2 Delivery Device Oxygen Flow Rate L Sodium 131 L (140-148) mmol/L Potassium 4.4 (3.6-5.2) mmol/L Chloride 94 L (100-108) mmol/L Carbon Dioxide 26 (21-32) mmol/L Anion Gap 15.4 H (5.0-14.0) mmol/L BUN 19 H (7-18) mg/dL Creatinine 1.4 H D (0.8-1.3) mg/dL Est Cr Clr Drug Dosing 60.05 mL/min Estimated GFR (MDRD) 51 L (>60) Glucose 105 (74-106) mg/dL Lactic Acid (0.4-2.0) mmol/L Calcium 8.3 L (8.5-10.1) mg/dL Magnesium (1.8-2.4) mg/dL Ferritin (8-388) ng/ml Total Bilirubin 0.8 (0.2-1.0) mg/dL Direct Bilirubin (0.0-0.2) mg/dL Indirect Bilirubin AST 37 D (15-37) U/L ALT 27 (12-78) U/L Alkaline Phosphatase 87 (46-116) U/L Creatine Kinase 240 (39-308) U/L C-Reactive Protein 7.51 H (0.0-0.3) mg/dL NT-Pro-B Natriuret Pep (5-125) pg/mL Total Protein 6.8 (6.4-8.2) g/dL Albumin 3.6 (3.4-5.0) g/dL Globulin 3.2 (2.3-3.5) g/dL Albumin/Globulin Ratio 1.1 L (1.2-2.2) Procalcitonin ng/mL Urine Color (YELLOW) Urine Appearance (CLEAR) Urine pH (5.0-8.0) Ur Specific [place] (1.008-1.030) Urine Protein (NEGATIVE) mg/dL Urine Glucose (UA) (NEGATIVE) mg/dL Urine Ketones (NEGATIVE) mg/dL Urine Occult Blood (NEGATIVE) Urine Nitrite (NEGATIVE) Urine Bilirubin (NEGATIVE) Urine Urobilinogen (0.2-1.0) EU/dL Ur Leukocyte Esterase (NEGATIVE) Urine RBC (0-5) Urine WBC (0-5) Ur Epithelial Cells Amorphous Sediment Urine Bacteria Urine Mucus 07/28/21 07/28/21 07/28/21 Range/Units 20:32 20:37 20:37 WBC (4.5-11.0) K/uL RBC (4.30-5.90) M/uL Hgb (12.0-15.0) g/dL Hct (40.0-54.0) % MCV (80-98) fL MCH (27-31) pg MCHC (32-36) % Plt Count (150-400) K/uL Neut % (Auto) (36-66) % Lymph % (Auto) (24-44) % Mcminn % (Auto) (2-6) % Eos % (Auto) (2-4) % Baso % (Auto) (0-1) % PT 11.8 H (9.2-10.6) sec INR 1.2 D-Dimer, Quantitative (0.0-500.0) ng/mL Puncture Site Rt brachial ABG pH 7.434 (7.350-7.450) ABG pCO2 34.1 L (35.0-42.0) mmHg ABG pO2 82.7 (75.0-100.0) mmHg ABG HCO3 22.4 (22.0-26.0) mmol/L ABG Total CO2 19.9 L (23.0-27.0) mmol/L ABG O2 Saturation 96.1 (95.0-98.0) % ABG O2 Content 17.3 (15.0-23.0) %vol ABG Base Excess -0.8 mm/L ABG Hemoglobin 13.0 L (13.5-18.0) g/dL ABG Oxyhemoglobin 94.3 % ABG Carboxyhemoglobin 0.9 (0.0-1.6) % ABG Methemoglobin 1.0 % Ander Test Not performed O2 Delivery Device Nasal cannula Oxygen Flow Rate 5.0 L Sodium (140-148) mmol/L Potassium (3.6-5.2) mmol/L Chloride (100-108) mmol/L Carbon Dioxide (21-32) mmol/L Anion Gap (5.0-14.0) mmol/L BUN (7-18) mg/dL Creatinine (0.8-1.3) mg/dL Est Cr Clr Drug Dosing mL/min Estimated GFR (MDRD) (>60) Glucose (74-106) mg/dL Lactic Acid (0.4-2.0) mmol/L Calcium (8.5-10.1) mg/dL Magnesium (1.8-2.4) mg/dL Ferritin 1612 H (8-388) ng/ml Total Bilirubin (0.2-1.0) mg/dL Direct Bilirubin (0.0-0.2) mg/dL Indirect Bilirubin AST (15-37) U/L ALT (12-78) U/L Alkaline Phosphatase (46-116) U/L Creatine Kinase (39-308) U/L C-Reactive Protein (0.0-0.3) mg/dL NT-Pro-B Natriuret Pep (5-125) pg/mL Total Protein (6.4-8.2) g/dL Albumin (3.4-5.0) g/dL Globulin (2.3-3.5) g/dL Albumin/Globulin Ratio (1.2-2.2) Procalcitonin ng/mL Urine Color (YELLOW) Urine Appearance (CLEAR) Urine pH (5.0-8.0) Ur Specific [place] (1.008-1.030) Urine Protein (NEGATIVE) mg/dL Urine Glucose (UA) (NEGATIVE) mg/dL Urine Ketones (NEGATIVE) mg/dL Urine Occult Blood (NEGATIVE) Urine Nitrite (NEGATIVE) Urine Bilirubin (NEGATIVE) Urine Urobilinogen (0.2-1.0) EU/dL Ur Leukocyte Esterase (NEGATIVE) Urine RBC (0-5) Urine WBC (0-5) Ur Epithelial Cells Amorphous Sediment Urine Bacteria Urine Mucus 07/28/21 07/28/21 07/28/21 Range/Units 20:37 20:37 20:37 WBC (4.5-11.0) K/uL RBC (4.30-5.90) M/uL Hgb (12.0-15.0) g/dL Hct (40.0-54.0) % MCV (80-98) fL MCH (27-31) pg MCHC (32-36) % Plt Count (150-400) K/uL Neut % (Auto) (36-66) % Lymph % (Auto) (24-44) % Mcminn % (Auto) (2-6) % Eos % (Auto) (2-4) % Baso % (Auto) (0-1) % PT (9.2-10.6) sec INR D-Dimer, Quantitative 820.37 H (0.0-500.0) ng/mL Puncture Site ABG pH (7.350-7.450) ABG pCO2 (35.0-42.0) mmHg ABG pO2 (75.0-100.0) mmHg ABG HCO3 (22.0-26.0) mmol/L ABG Total CO2 (23.0-27.0) mmol/L ABG O2 Saturation (95.0-98.0) % ABG O2 Content (15.0-23.0) %vol ABG Base Excess mm/L ABG Hemoglobin (13.5-18.0) g/dL ABG Oxyhemoglobin % ABG Carboxyhemoglobin (0.0-1.6) % ABG Methemoglobin % Ander Test O2 Delivery Device Oxygen Flow Rate L Sodium (140-148) mmol/L Potassium (3.6-5.2) mmol/L Chloride (100-108) mmol/L Carbon Dioxide (21-32) mmol/L Anion Gap (5.0-14.0) mmol/L BUN (7-18) mg/dL Creatinine (0.8-1.3) mg/dL Est Cr Clr Drug Dosing mL/min Estimated GFR (MDRD) (>60) Glucose (74-106) mg/dL Lactic Acid 1.2 (0.4-2.0) mmol/L Calcium (8.5-10.1) mg/dL Magnesium (1.8-2.4) mg/dL Ferritin (8-388) ng/ml Total Bilirubin (0.2-1.0) mg/dL Direct Bilirubin (0.0-0.2) mg/dL Indirect Bilirubin AST (15-37) U/L ALT (12-78) U/L Alkaline Phosphatase (46-116) U/L Creatine Kinase (39-308) U/L C-Reactive Protein (0.0-0.3) mg/dL NT-Pro-B Natriuret Pep 436 H (5-125) pg/mL Total Protein (6.4-8.2) g/dL Albumin (3.4-5.0) g/dL Globulin (2.3-3.5) g/dL Albumin/Globulin Ratio (1.2-2.2) Procalcitonin ng/mL Urine Color (YELLOW) Urine Appearance (CLEAR) Urine pH (5.0-8.0) Ur Specific [place] (1.008-1.030) Urine Protein (NEGATIVE) mg/dL Urine Glucose (UA) (NEGATIVE) mg/dL Urine Ketones (NEGATIVE) mg/dL Urine Occult Blood (NEGATIVE) Urine Nitrite (NEGATIVE) Urine Bilirubin (NEGATIVE) Urine Urobilinogen (0.2-1.0) EU/dL Ur Leukocyte Esterase (NEGATIVE) Urine RBC (0-5) Urine WBC (0-5) Ur Epithelial Cells Amorphous Sediment Urine Bacteria Urine Mucus 07/28/21 07/28/21 07/29/21 Range/Units 20:37 20:37 06:01 WBC 5.7 (4.5-11.0) K/uL RBC 4.55 (4.30-5.90) M/uL Hgb 13.3 (12.0-15.0) g/dL Hct 39.9 L (40.0-54.0) % MCV 88 (80-98) fL MCH 29 (27-31) pg MCHC 33 (32-36) % Plt Count 154 (150-400) K/uL Neut % (Auto) 80.5 H (36-66) % Lymph % (Auto) 11.1 L (24-44) % Mcminn % (Auto) 8.2 H (2-6) % Eos % (Auto) 0.0 L (2-4) % Baso % (Auto) 0.2 (0-1) % PT (9.2-10.6) sec INR D-Dimer, Quantitative (0.0-500.0) ng/mL Puncture Site ABG pH (7.350-7.450) ABG pCO2 (35.0-42.0) mmHg ABG pO2 (75.0-100.0) mmHg ABG HCO3 (22.0-26.0) mmol/L ABG Total CO2 (23.0-27.0) mmol/L ABG O2 Saturation (95.0-98.0) % ABG O2 Content (15.0-23.0) %vol ABG Base Excess mm/L ABG Hemoglobin (13.5-18.0) g/dL ABG Oxyhemoglobin % ABG Carboxyhemoglobin (0.0-1.6) % ABG Methemoglobin % Ander Test O2 Delivery Device Oxygen Flow Rate L Sodium (140-148) mmol/L Potassium (3.6-5.2) mmol/L Chloride (100-108) mmol/L Carbon Dioxide (21-32) mmol/L Anion Gap (5.0-14.0) mmol/L BUN (7-18) mg/dL Creatinine (0.8-1.3) mg/dL Est Cr Clr Drug Dosing mL/min Estimated GFR (MDRD) (>60) Glucose (74-106) mg/dL Lactic Acid (0.4-2.0) mmol/L Calcium (8.5-10.1) mg/dL Magnesium (1.8-2.4) mg/dL Ferritin (8-388) ng/ml Total Bilirubin 0.8 (0.2-1.0) mg/dL Direct Bilirubin 0.21 H (0.0-0.2) mg/dL Indirect Bilirubin 0.59 AST 38 H (15-37) U/L ALT 28 (12-78) U/L Alkaline Phosphatase 87 (46-116) U/L Creatine Kinase (39-308) U/L C-Reactive Protein (0.0-0.3) mg/dL NT-Pro-B Natriuret Pep (5-125) pg/mL Total Protein 6.8 (6.4-8.2) g/dL Albumin 3.6 (3.4-5.0) g/dL Globulin 3.2 (2.3-3.5) g/dL Albumin/Globulin Ratio 1.1 L (1.2-2.2) Procalcitonin 0.11 ng/mL Urine Color (YELLOW) Urine Appearance (CLEAR) Urine pH (5.0-8.0) Ur Specific [place] (1.008-1.030) Urine Protein (NEGATIVE) mg/dL Urine Glucose (UA) (NEGATIVE) mg/dL Urine Ketones (NEGATIVE) mg/dL Urine Occult Blood (NEGATIVE) Urine Nitrite (NEGATIVE) Urine Bilirubin (NEGATIVE) Urine Urobilinogen (0.2-1.0) EU/dL Ur Leukocyte Esterase (NEGATIVE) Urine RBC (0-5) Urine WBC (0-5) Ur Epithelial Cells Amorphous Sediment Urine Bacteria Urine Mucus 07/29/21 07/29/21 Range/Units 06:01 06:30 WBC (4.5-11.0) K/uL RBC (4.30-5.90) M/uL Hgb (12.0-15.0) g/dL Hct (40.0-54.0) % MCV (80-98) fL MCH (27-31) pg MCHC (32-36) % Plt Count (150-400) K/uL Neut % (Auto) (36-66) % Lymph % (Auto) (24-44) % Mcminn % (Auto) (2-6) % Eos % (Auto) (2-4) % Baso % (Auto) (0-1) % PT (9.2-10.6) sec INR D-Dimer, Quantitative (0.0-500.0) ng/mL Puncture Site ABG pH (7.350-7.450) ABG pCO2 (35.0-42.0) mmHg ABG pO2 (75.0-100.0) mmHg ABG HCO3 (22.0-26.0) mmol/L ABG Total CO2 (23.0-27.0) mmol/L ABG O2 Saturation (95.0-98.0) % ABG O2 Content (15.0-23.0) %vol ABG Base Excess mm/L ABG Hemoglobin (13.5-18.0) g/dL ABG Oxyhemoglobin % ABG Carboxyhemoglobin (0.0-1.6) % ABG Methemoglobin % Ander Test O2 Delivery Device Oxygen Flow Rate L Sodium 132 L (140-148) mmol/L Potassium 4.9 (3.6-5.2) mmol/L Chloride 96 L (100-108) mmol/L Carbon Dioxide 27 (21-32) mmol/L Anion Gap 13.9 (5.0-14.0) mmol/L BUN 24 H (7-18) mg/dL Creatinine 1.2 (0.8-1.3) mg/dL Est Cr Clr Drug Dosing 70.06 mL/min Estimated GFR (MDRD) > 60 (>60) Glucose 145 H (74-106) mg/dL Lactic Acid (0.4-2.0) mmol/L Calcium 8.4 L (8.5-10.1) mg/dL Magnesium 2.1 (1.8-2.4) mg/dL Ferritin (8-388) ng/ml Total Bilirubin 0.7 (0.2-1.0) mg/dL Direct Bilirubin (0.0-0.2) mg/dL Indirect Bilirubin AST 36 (15-37) U/L ALT 27 (12-78) U/L Alkaline Phosphatase 74 (46-116) U/L Creatine Kinase (39-308) U/L C-Reactive Protein 8.39 H (0.0-0.3) mg/dL NT-Pro-B Natriuret Pep (5-125) pg/mL Total Protein 6.9 (6.4-8.2) g/dL Albumin 3.1 L (3.4-5.0) g/dL Globulin 3.8 H (2.3-3.5) g/dL Albumin/Globulin Ratio 0.8 L (1.2-2.2) Procalcitonin ng/mL Urine Color Yellow (YELLOW) Urine Appearance Clear (CLEAR) Urine pH 5.5 (5.0-8.0) Ur Specific [place] 1.025 (1.008-1.030) Urine Protein >=300 H (NEGATIVE) mg/dL Urine Glucose (UA) Negative (NEGATIVE) mg/dL Urine Ketones Trace H (NEGATIVE) mg/dL Urine Occult Blood Negative (NEGATIVE) Urine Nitrite Negative (NEGATIVE) Urine Bilirubin Negative (NEGATIVE) Urine Urobilinogen 0.2 (0.2-1.0) EU/dL Ur Leukocyte Esterase Negative (NEGATIVE) Urine RBC 0-5 (0-5) Urine WBC 0-5 (0-5) Ur Epithelial Cells Rare Amorphous Sediment Rare Urine Bacteria Rare Urine Mucus Not seen Med Orders - Current: Current Medications Acetaminophen (Acetaminophen 325 Mg Tab) 650 mg PO Q4H PRN PRN Reason: Fever Greater Than 101 Albuterol (Albuterol 8 Gm Inhaler) 8.5 gm INH Q4H PRN PRN Reason: Shortness of Breath Apixaban (Apixaban 5 Mg Tab) 5 mg PO BID [facility] Last Admin: 07/29/21 09:08 Dose: 5 mg Documented by: Aspirin (Aspirin 81 Mg Tab.Ec) 81 mg PO DAILY [facility] Last Admin: 07/29/21 09:08 Dose: 81 mg Documented by: Atorvastatin Calcium (Atorvastatin 20 Mg Tab) 40 mg PO BEDTIME [facility] Last Admin: 07/28/21 23:30 Dose: 40 mg Documented by: Carvedilol (Carvedilol 12.5 Mg Tab) 25 mg PO BID [facility] Last Admin: 07/29/21 09:08 Dose: 25 mg Documented by: Dexamethasone (Dexamethasone 4 Mg/Ml Sdv) 6 mg IVPUSH Q24H [facility] Stop: 08/06/21 16:01 Guaifenesin/Dextromethorphan (Guaifenesin/Dextromethorphan 100-10 Mg/5 Ml Soln 10 Ml Cup) 10 ml PO Q4H PRN PRN Reason: Cough Remdesivir 100 mg/ Sodium (Chloride) 100 mls @ 100 mls/hr IV Q24H [facility] Stop: 08/01/21 17:59 Lisinopril (Lisinopril 20 Mg Tab) 20 mg PO BID [facility] Last Admin: 07/29/21 09:08 Dose: 20 mg Documented by: Lorazepam (Lorazepam 2 Mg/Ml Sdv) 1 mg IV Q6H PRN PRN Reason: Nausea/Vomiting Mometasone Furoate/Formoterol Fumar (Formoterol/Mometasone 200-5 Mcg 8.8 Gm Inhaler) 0 puff IH Q8H PRN PRN Reason: Shortness of Breath Morphine Sulfate (Morphine 2 Mg/Ml Syringe) 2 mg IVPUSH Q2H PRN PRN Reason: Pain (severe 7-10) Ondansetron HCl (Ondansetron 4 Mg Tab.Dis) 4 mg PO Q6H PRN PRN Reason: Nausea Last Admin: 07/28/21 23:29 Dose: 4 mg Documented by: Oxycodone HCl (Oxycodone 5 Mg Tab) 5 mg PO Q4H PRN PRN Reason: Pain (moderate 4-6) Sodium Chloride (Sodium Chloride 0.9% 10 Ml Syringe) 10 ml FLUSH ASDIRECTED PRN PRN Reason: Keep Vein Open Last Admin: 07/28/21 21:31 Dose: 10 ml Documented by: Sotalol HCl (Sotalol 80 Mg Tab) 80 mg PO BID [facility] Last Admin: 07/29/21 09:08 Dose: 80 mg Documented by: Spironolactone (Spironolactone 25 Mg Tab) 25 mg PO DAILY [facility] Last Admin: 07/29/21 09:07 Dose: 25 mg Documented by: Temazepam (Temazepam 15 Mg Cap) 15 mg PO BEDTIME PRN PRN Reason: Sleep Last Admin: 07/28/21 23:29 Dose: 15 mg Documented by: Discontinued Medications Acetaminophen (Acetaminophen 325 Mg Tab) 650 mg PO Q4H PRN PRN Reason: Fever Greater Than 101 Last Admin: 07/28/21 23:31 Dose: 650 mg Documented by: Dexamethasone (Dexamethasone 4 Mg/Ml Sdv) 6 mg IVPUSH DAILY [facility] Stop: 08/06/21 09:01 Last Admin: 07/28/21 21:29 Dose: 6 mg Documented by: Remdesivir 200 mg/ Sodium (Chloride) 250 mls @ 250 mls/hr IV ONETIME ONE Stop: 07/28/21 20:33 Last Admin: 07/28/21 21:33 Dose: 250 mls/hr Documented by: Lisinopril (Lisinopril 10 Mg Tab) Confirm Administered Dose 20 mg .ROUTE .STK- MED ONE Stop: 07/28/21 23:19 Last Admin: 07/28/21 23:28 Dose: 20 mg Documented by: Mometasone Furoate/Formoterol Fumar (Formoterol/Mometasone 200-5 Mcg 8.8 Gm Inhaler) 0 puff IH Q8H PRN PRN Reason: Shortness of Breath Last Admin: 07/28/21 23:35 Dose: 2 puff Documented by: - Exam Quality Assessment: Supplemental Oxygen, DVT Prophylaxis General: Alert, Oriented, Cooperative, Moderate Distress Lungs: Decreased Breath Sounds, Rales. No: Rhonchi, Wheezing Cardiovascular: Regular Rate, Regular Rhythm, No Murmurs GI/Abdominal Exam: Soft, Non-Tender, No Organomegaly, No Distention Extremities: Non-Tender, No Pedal Edema - Patient Data Lab Results Last 24 hrs: Laboratory Results - last 24 hr 07/28/21 07/28/21 07/28/21 Range/Units 18:49 18:49 18:55 WBC 5.6 (4.5-11.0) K/uL RBC 4.62 (4.30-5.90) M/uL Hgb 13.6 (12.0-15.0) g/dL Hct 40.5 (40.0-54.0) % MCV 88 (80-98) fL MCH 29 (27-31) pg MCHC 34 (32-36) % Plt Count 143 L (150-400) K/uL Neut % (Auto) 74.8 H (36-66) % Lymph % (Auto) 15.1 L (24-44) % Mcminn % (Auto) 9.9 H (2-6) % Eos % (Auto) 0.0 L (2-4) % Baso % (Auto) 0.2 (0-1) % PT (9.2-10.6) sec INR D-Dimer, Quantitative (0.0-500.0) ng/mL Puncture Site ABG pH (7.350-7.450) ABG pCO2 (35.0-42.0) mmHg ABG pO2 (75.0-100.0) mmHg ABG HCO3 (22.0-26.0) mmol/L ABG Total CO2 (23.0-27.0) mmol/L ABG O2 Saturation (95.0-98.0) % ABG O2 Content (15.0-23.0) %vol ABG Base Excess mm/L ABG Hemoglobin (13.5-18.0) g/dL ABG Oxyhemoglobin % ABG Carboxyhemoglobin (0.0-1.6) % ABG Methemoglobin % Ander Test O2 Delivery Device Oxygen Flow Rate L Sodium 131 L (140-148) mmol/L Potassium 4.4 (3.6-5.2) mmol/L Chloride 94 L (100-108) mmol/L Carbon Dioxide 26 (21-32) mmol/L Anion Gap 15.4 H (5.0-14.0) mmol/L BUN 19 H (7-18) mg/dL Creatinine 1.4 H D (0.8-1.3) mg/dL Est Cr Clr Drug Dosing 60.05 mL/min Estimated GFR (MDRD) 51 L (>60) Glucose 105 (74-106) mg/dL Lactic Acid (0.4-2.0) mmol/L Calcium 8.3 L (8.5-10.1) mg/dL Magnesium (1.8-2.4) mg/dL Ferritin (8-388) ng/ml Total Bilirubin 0.8 (0.2-1.0) mg/dL Direct Bilirubin (0.0-0.2) mg/dL Indirect Bilirubin AST 37 D (15-37) U/L ALT 27 (12-78) U/L Alkaline Phosphatase 87 (46-116) U/L Creatine Kinase 240 (39-308) U/L C-Reactive Protein 7.51 H (0.0-0.3) mg/dL NT-Pro-B Natriuret Pep (5-125) pg/mL Total Protein 6.8 (6.4-8.2) g/dL Albumin 3.6 (3.4-5.0) g/dL Globulin 3.2 (2.3-3.5) g/dL Albumin/Globulin Ratio 1.1 L (1.2-2.2) Procalcitonin ng/mL Urine Color (YELLOW) Urine Appearance (CLEAR) Urine pH (5.0-8.0) Ur Specific [place] (1.008-1.030) Urine Protein (NEGATIVE) mg/dL Urine Glucose (UA) (NEGATIVE) mg/dL Urine Ketones (NEGATIVE) mg/dL Urine Occult Blood (NEGATIVE) Urine Nitrite (NEGATIVE) Urine Bilirubin (NEGATIVE) Urine Urobilinogen (0.2-1.0) EU/dL Ur Leukocyte Esterase (NEGATIVE) Urine RBC (0-5) Urine WBC (0-5) Ur Epithelial Cells Amorphous Sediment Urine Bacteria Urine Mucus 07/28/21 07/28/21 07/28/21 Range/Units 20:32 20:37 20:37 WBC (4.5-11.0) K/uL RBC (4.30-5.90) M/uL Hgb (12.0-15.0) g/dL Hct (40.0-54.0) % MCV (80-98) fL MCH (27-31) pg MCHC (32-36) % Plt Count (150-400) K/uL Neut % (Auto) (36-66) % Lymph % (Auto) (24-44) % Mcminn % (Auto) (2-6) % Eos % (Auto) (2-4) % Baso % (Auto) (0-1) % PT 11.8 H (9.2-10.6) sec INR 1.2 D-Dimer, Quantitative (0.0-500.0) ng/mL Puncture Site Rt brachial ABG pH 7.434 (7.350-7.450) ABG pCO2 34.1 L (35.0-42.0) mmHg ABG pO2 82.7 (75.0-100.0) mmHg ABG HCO3 22.4 (22.0-26.0) mmol/L ABG Total CO2 19.9 L (23.0-27.0) mmol/L ABG O2 Saturation 96.1 (95.0-98.0) % ABG O2 Content 17.3 (15.0-23.0) %vol ABG Base Excess -0.8 mm/L ABG Hemoglobin 13.0 L (13.5-18.0) g/dL ABG Oxyhemoglobin 94.3 % ABG Carboxyhemoglobin 0.9 (0.0-1.6) % ABG Methemoglobin 1.0 % Ander Test Not performed O2 Delivery Device Nasal cannula Oxygen Flow Rate 5.0 L Sodium (140-148) mmol/L Potassium (3.6-5.2) mmol/L Chloride (100-108) mmol/L Carbon Dioxide (21-32) mmol/L Anion Gap (5.0-14.0) mmol/L BUN (7-18) mg/dL Creatinine (0.8-1.3) mg/dL Est Cr Clr Drug Dosing mL/min Estimated GFR (MDRD) (>60) Glucose (74-106) mg/dL Lactic Acid (0.4-2.0) mmol/L Calcium (8.5-10.1) mg/dL Magnesium (1.8-2.4) mg/dL Ferritin 1612 H (8-388) ng/ml Total Bilirubin (0.2-1.0) mg/dL Direct Bilirubin (0.0-0.2) mg/dL Indirect Bilirubin AST (15-37) U/L ALT (12-78) U/L Alkaline Phosphatase (46-116) U/L Creatine Kinase (39-308) U/L C-Reactive Protein (0.0-0.3) mg/dL NT-Pro-B Natriuret Pep (5-125) pg/mL Total Protein (6.4-8.2) g/dL Albumin (3.4-5.0) g/dL Globulin (2.3-3.5) g/dL Albumin/Globulin Ratio (1.2-2.2) Procalcitonin ng/mL Urine Color (YELLOW) Urine Appearance (CLEAR) Urine pH (5.0-8.0) Ur Specific [place] (1.008-1.030) Urine Protein (NEGATIVE) mg/dL Urine Glucose (UA) (NEGATIVE) mg/dL Urine Ketones (NEGATIVE) mg/dL Urine Occult Blood (NEGATIVE) Urine Nitrite (NEGATIVE) Urine Bilirubin (NEGATIVE) Urine Urobilinogen (0.2-1.0) EU/dL Ur Leukocyte Esterase (NEGATIVE) Urine RBC (0-5) Urine WBC (0-5) Ur Epithelial Cells Amorphous Sediment Urine Bacteria Urine Mucus 07/28/21 07/28/21 07/28/21 Range/Units 20:37 20:37 20:37 WBC (4.5-11.0) K/uL RBC (4.30-5.90) M/uL Hgb (12.0-15.0) g/dL Hct (40.0-54.0) % MCV (80-98) fL MCH (27-31) pg MCHC (32-36) % Plt Count (150-400) K/uL Neut % (Auto) (36-66) % Lymph % (Auto) (24-44) % Mcminn % (Auto) (2-6) % Eos % (Auto) (2-4) % Baso % (Auto) (0-1) % PT (9.2-10.6) sec INR D-Dimer, Quantitative 820.37 H (0.0-500.0) ng/mL Puncture Site ABG pH (7.350-7.450) ABG pCO2 (35.0-42.0) mmHg ABG pO2 (75.0-100.0) mmHg ABG HCO3 (22.0-26.0) mmol/L ABG Total CO2 (23.0-27.0) mmol/L ABG O2 Saturation (95.0-98.0) % ABG O2 Content (15.0-23.0) %vol ABG Base Excess mm/L ABG Hemoglobin (13.5-18.0) g/dL ABG Oxyhemoglobin % ABG Carboxyhemoglobin (0.0-1.6) % ABG Methemoglobin % Ander Test O2 Delivery Device Oxygen Flow Rate L Sodium (140-148) mmol/L Potassium (3.6-5.2) mmol/L Chloride (100-108) mmol/L Carbon Dioxide (21-32) mmol/L Anion Gap (5.0-14.0) mmol/L BUN (7-18) mg/dL Creatinine (0.8-1.3) mg/dL Est Cr Clr Drug Dosing mL/min Estimated GFR (MDRD) (>60) Glucose (74-106) mg/dL Lactic Acid 1.2 (0.4-2.0) mmol/L Calcium (8.5-10.1) mg/dL Magnesium (1.8-2.4) mg/dL Ferritin (8-388) ng/ml Total Bilirubin (0.2-1.0) mg/dL Direct Bilirubin (0.0-0.2) mg/dL Indirect Bilirubin AST (15-37) U/L ALT (12-78) U/L Alkaline Phosphatase (46-116) U/L Creatine Kinase (39-308) U/L C-Reactive Protein (0.0-0.3) mg/dL NT-Pro-B Natriuret Pep 436 H (5-125) pg/mL Total Protein (6.4-8.2) g/dL Albumin (3.4-5.0) g/dL Globulin (2.3-3.5) g/dL Albumin/Globulin Ratio (1.2-2.2) Procalcitonin ng/mL Urine Color (YELLOW) Urine Appearance (CLEAR) Urine pH (5.0-8.0) Ur Specific [place] (1.008-1.030) Urine Protein (NEGATIVE) mg/dL Urine Glucose (UA) (NEGATIVE) mg/dL Urine Ketones (NEGATIVE) mg/dL Urine Occult Blood (NEGATIVE) Urine Nitrite (NEGATIVE) Urine Bilirubin (NEGATIVE) Urine Urobilinogen (0.2-1.0) EU/dL Ur Leukocyte Esterase (NEGATIVE) Urine RBC (0-5) Urine WBC (0-5) Ur Epithelial Cells Amorphous Sediment Urine Bacteria Urine Mucus 07/28/21 07/28/21 07/29/21 Range/Units 20:37 20:37 06:01 WBC 5.7 (4.5-11.0) K/uL RBC 4.55 (4.30-5.90) M/uL Hgb 13.3 (12.0-15.0) g/dL Hct 39.9 L (40.0-54.0) % MCV 88 (80-98) fL MCH 29 (27-31) pg MCHC 33 (32-36) % Plt Count 154 (150-400) K/uL Neut % (Auto) 80.5 H (36-66) % Lymph % (Auto) 11.1 L (24-44) % Mcminn % (Auto) 8.2 H (2-6) % Eos % (Auto) 0.0 L (2-4) % Baso % (Auto) 0.2 (0-1) % PT (9.2-10.6) sec INR D-Dimer, Quantitative (0.0-500.0) ng/mL Puncture Site ABG pH (7.350-7.450) ABG pCO2 (35.0-42.0) mmHg ABG pO2 (75.0-100.0) mmHg ABG HCO3 (22.0-26.0) mmol/L ABG Total CO2 (23.0-27.0) mmol/L ABG O2 Saturation (95.0-98.0) % ABG O2 Content (15.0-23.0) %vol ABG Base Excess mm/L ABG Hemoglobin (13.5-18.0) g/dL ABG Oxyhemoglobin % ABG Carboxyhemoglobin (0.0-1.6) % ABG Methemoglobin % Ander Test O2 Delivery Device Oxygen Flow Rate L Sodium (140-148) mmol/L Potassium (3.6-5.2) mmol/L Chloride (100-108) mmol/L Carbon Dioxide (21-32) mmol/L Anion Gap (5.0-14.0) mmol/L BUN (7-18) mg/dL Creatinine (0.8-1.3) mg/dL Est Cr Clr Drug Dosing mL/min Estimated GFR (MDRD) (>60) Glucose (74-106) mg/dL Lactic Acid (0.4-2.0) mmol/L Calcium (8.5-10.1) mg/dL Magnesium (1.8-2.4) mg/dL Ferritin (8-388) ng/ml Total Bilirubin 0.8 (0.2-1.0) mg/dL Direct Bilirubin 0.21 H (0.0-0.2) mg/dL Indirect Bilirubin 0.59 AST 38 H (15-37) U/L ALT 28 (12-78) U/L Alkaline Phosphatase 87 (46-116) U/L Creatine Kinase (39-308) U/L C-Reactive Protein (0.0-0.3) mg/dL NT-Pro-B Natriuret Pep (5-125) pg/mL Total Protein 6.8 (6.4-8.2) g/dL Albumin 3.6 (3.4-5.0) g/dL Globulin 3.2 (2.3-3.5) g/dL Albumin/Globulin Ratio 1.1 L (1.2-2.2) Procalcitonin 0.11 ng/mL Urine Color (YELLOW) Urine Appearance (CLEAR) Urine pH (5.0-8.0) Ur Specific [place] (1.008-1.030) Urine Protein (NEGATIVE) mg/dL Urine Glucose (UA) (NEGATIVE) mg/dL Urine Ketones (NEGATIVE) mg/dL Urine Occult Blood (NEGATIVE) Urine Nitrite (NEGATIVE) Urine Bilirubin (NEGATIVE) Urine Urobilinogen (0.2-1.0) EU/dL Ur Leukocyte Esterase (NEGATIVE) Urine RBC (0-5) Urine WBC (0-5) Ur Epithelial Cells Amorphous Sediment Urine Bacteria Urine Mucus 07/29/21 07/29/21 Range/Units 06:01 06:30 WBC (4.5-11.0) K/uL RBC (4.30-5.90) M/uL Hgb (12.0-15.0) g/dL Hct (40.0-54.0) % MCV (80-98) fL MCH (27-31) pg MCHC (32-36) % Plt Count (150-400) K/uL Neut % (Auto) (36-66) % Lymph % (Auto) (24-44) % [place] % (Auto) (2-6) % Eos % (Auto) (2-4) % Baso % (Auto) (0-1) % PT (9.2-10.6) sec INR D-Dimer, Quantitative (0.0-500.0) ng/mL Puncture Site ABG pH (7.350-7.450) ABG pCO2 (35.0-42.0) mmHg ABG pO2 (75.0-100.0) mmHg ABG HCO3 (22.0-26.0) mmol/L ABG Total CO2 (23.0-27.0) mmol/L ABG O2 Saturation (95.0-98.0) % ABG O2 Content (15.0-23.0) %vol ABG Base Excess mm/L ABG Hemoglobin (13.5-18.0) g/dL ABG Oxyhemoglobin % ABG Carboxyhemoglobin (0.0-1.6) % ABG Methemoglobin % Ander Test O2 Delivery Device Oxygen Flow Rate L Sodium 132 L (140-148) mmol/L Potassium 4.9 (3.6-5.2) mmol/L Chloride 96 L (100-108) mmol/L Carbon Dioxide 27 (21-32) mmol/L Anion Gap 13.9 (5.0-14.0) mmol/L BUN 24 H (7-18) mg/dL Creatinine 1.2 (0.8-1.3) mg/dL Est Cr Clr Drug Dosing 70.06 mL/min Estimated GFR (MDRD) > 60 (>60) Glucose 145 H (74-106) mg/dL Lactic Acid (0.4-2.0) mmol/L Calcium 8.4 L (8.5-10.1) mg/dL Magnesium 2.1 (1.8-2.4) mg/dL Ferritin (8-388) ng/ml Total Bilirubin 0.7 (0.2-1.0) mg/dL Direct Bilirubin (0.0-0.2) mg/dL Indirect Bilirubin AST 36 (15-37) U/L ALT 27 (12-78) U/L Alkaline Phosphatase 74 (46-116) U/L Creatine Kinase (39-308) U/L C-Reactive Protein 8.39 H (0.0-0.3) mg/dL NT-Pro-B Natriuret Pep (5-125) pg/mL Total Protein 6.9 (6.4-8.2) g/dL Albumin 3.1 L (3.4-5.0) g/dL Globulin 3.8 H (2.3-3.5) g/dL Albumin/Globulin Ratio 0.8 L (1.2-2.2) Procalcitonin ng/mL Urine Color Yellow (YELLOW) Urine Appearance Clear (CLEAR) Urine pH 5.5 (5.0-8.0) Ur Specific [place] 1.025 (1.008-1.030) Urine Protein >=300 H (NEGATIVE) mg/dL Urine Glucose (UA) Negative (NEGATIVE) mg/dL Urine Ketones Trace H (NEGATIVE) mg/dL Urine Occult Blood Negative (NEGATIVE) Urine Nitrite Negative (NEGATIVE) Urine Bilirubin Negative (NEGATIVE) Urine Urobilinogen 0.2 (0.2-1.0) EU/dL Ur Leukocyte Esterase Negative (NEGATIVE) Urine RBC 0-5 (0-5) Urine WBC 0-5 (0-5) Ur Epithelial Cells Rare Amorphous Sediment Rare Urine Bacteria Rare Urine Mucus Not seen Result Diagrams: 07/29/21 06:01 07/29/21 06:01 Sepsis Event Note - Evaluation Sepsis Screening Result: No Definite Risk - Focused Exam Vital Signs: Vital Signs Temp Pulse Pulse Resp BP BP Pulse Ox 07/29/21 14:03 91 L 07/29/21 12:00 96.3 F L 63 16 105/60 93 L 07/29/21 09:08 64 103/50 L 07/29/21 08:00 95.7 F L 67 16 103/50 L 92 L 07/29/21 07:59 92 L 07/29/21 03:15 96.7 F L 72 18 94/46 L 94 L - Problem List Review Problem List Initiated/Reviewed/Updated: Yes - My Orders Last 24 Hours: My Active Orders 07/29/21 14:30 Dextromethorphan/guaiFENesin [Robitussin DM] 10 ml PO Q4H PRN - Plan Plan:: ASSESSMENT AND PLAN COVID-19 pneumonia-complicated by hypoxia. He has not been vaccinated. Relatively stable since admission with no worsening of hypoxia, currently on 5 L of oxygen per minute via nasal cannula. -Dexamethasone 6 mg daily, day 2 -Remdesivir 200mg given in ER then 100mg daily for 4 days, today is day 1 of 4 -Supplement oxygen as needed -Symptomatic management of cough -Goal of negative fluid balance each day -Isolation precautions Essential hypertension-blood pressure remains in the normal range at this time. -Continue Lisinopril 20 mg po bid -continue Spironolactone 25 mg po daily Cardiovascular disease - history of cardiac stent x 3, CHF, Cardiomegaly, pacemaker,hyperlipidemia -Coreg 25 mg po bid -Lipitor 40 mg daily -Eliquis 5 mg po bid -baby asa -cardiac monitoring. Obstructive sleep apnea- home C-pap at night -continuous pulse ox. -supplemental oxygen Maintenance issues - - DVT prophylaxis - Eliquis 5 mg po bid - GI prophylaxis -PPI - Nutrition -regular - James catheter -not indicated CODE STATUS -full code Admission justification -this patient will be admitted for inpatient services and is medically appropriate meeting medical necessity for inpatient admission as outlined in my documentation. I reasonably expect the patient will require inpatient services that span a period time over 2 midnights. I reasonably expect this patient to be discharged or transferred within 96 hours [facility]. Disposition -I would anticipate discharge home Primary care physician -Dr. Gaviria Hospitalist - Dr. Bradford Baker M.D.
[2021-07-29] MEDS: Dexamethasone 4 MG/ML SDV IVPUSH SCH (15:57)
[2021-07-29] MEDS: REMDESIVIR 100 MG in Sodium Chloride 0.9% 100 ML IV SCH (16:03)
[2021-07-29] MEDS: atorvaSTATin 20 MG Tab PO SCH (20:59)
[2021-07-30] MEDS: Sotalol 80 MG Tab PO SCH ×2 (08:12→20:21)
[2021-07-30] MEDS: Spironolactone 25 MG Tab PO SCH (08:12)
[2021-07-30] MEDS: Aspirin 81 MG Tab.EC PO SCH (08:13)
[2021-07-30] MEDS: guaiFENesin/Dextromethorphan 100-10 MG/5 ML Soln 10 ML Cup PO PRN ×2 (08:13→20:28)
[2021-07-30] MEDS: Carvedilol 12.5 MG Tab PO SCH ×2 (08:13→20:20)
[2021-07-30] MEDS: Lisinopril 20 MG Tab PO SCH ×2 (08:13→20:21)
[2021-07-30] MEDS: Apixaban 5 MG Tab PO SCH ×2 (08:13→20:19)
[2021-07-30] MEDS: Dexamethasone 4 MG/ML SDV IVPUSH SCH (17:10)
[2021-07-30] MEDS: REMDESIVIR 100 MG in Sodium Chloride 0.9% 100 ML IV SCH (17:17)
--- NOTE | 2021-07-30 19:42 | PCM.PN ---
- General Info Date of Service: 07/30/21 Subjective Update: Mr. Denson has remained fairly stable since yesterday. Level of oxygen requirement has been stable with no evidence of progressive respiratory compromise. Continues to experience a cough which for the most part is nonproductive. He does desaturate more at night secondary to his history of sleep apnea. - Review of Systems General: Reports: Weakness, Fatigue. Denies: Fever, Chills Pulmonary: Reports: Shortness of Breath, Cough. Denies: Pleuritic Chest Pain, Sputum, Hemoptysis, Wheezing Cardiovascular: Reports: Dyspnea on Exertion. Denies: Chest Pain, Palpitations, Orthopnea, PND, Edema, Lightheadedness Gastrointestinal: Reports: No Symptoms Genitourinary: Reports: No Symptoms - Patient Data Vitals - Most Recent: Last Vital Signs Temp 94.7 F L 07/30/21 15:33 Pulse 77 07/30/21 15:33 Resp 20 07/30/21 15:33 BP 124/59 L 07/30/21 15:33 Pulse Ox 95 07/30/21 15:33 Weight - Most Recent: 326 lb I&O - Last 24 Hours: Intake & Output 07/30/21 07/30/21 07/30/21 06:59 14:59 22:59 Intake Total 300 100 Output Total 500 Balance 300 -400 Chris Results Last 24 Hours: Microbiology 07/28/21 23:15 Aerobic Blood Culture - Preliminary Blood - Arm, Left NO GROWTH AFTER 1 DAY Anaerobic Blood Culture - Preliminary NO GROWTH AFTER 1 DAY 07/28/21 23:30 Aerobic Blood Culture - Preliminary Blood - Arm, Left NO GROWTH AFTER 1 DAY Anaerobic Blood Culture - Preliminary NO GROWTH AFTER 1 DAY Med Orders - Current: Current Medications Acetaminophen (Acetaminophen 325 Mg Tab) 650 mg PO Q4H PRN PRN Reason: Fever Greater Than 101 Albuterol (Albuterol 8 Gm Inhaler) 8.5 gm INH Q4H PRN PRN Reason: Shortness of Breath Apixaban (Apixaban 5 Mg Tab) 5 mg PO BID [facility] Last Admin: 07/30/21 08:13 Dose: 5 mg Documented by: Aspirin (Aspirin 81 Mg Tab.Ec) 81 mg PO DAILY [facility] Last Admin: 07/30/21 08:13 Dose: 81 mg Documented by: Atorvastatin Calcium (Atorvastatin 20 Mg Tab) 40 mg PO BEDTIME [facility] Last Admin: 07/29/21 20:59 Dose: 40 mg Documented by: Carvedilol (Carvedilol 12.5 Mg Tab) 25 mg PO BID [facility] Last Admin: 07/30/21 08:13 Dose: 25 mg Documented by: Dexamethasone (Dexamethasone 4 Mg/Ml Sdv) 6 mg IVPUSH Q24H [facility] Stop: 08/06/21 16:01 Last Admin: 07/30/21 17:10 Dose: 6 mg Documented by: Guaifenesin/Dextromethorphan (Guaifenesin/Dextromethorphan 100-10 Mg/5 Ml Soln 10 Ml Cup) 10 ml PO Q4H PRN PRN Reason: Cough Last Admin: 07/30/21 08:13 Dose: 10 ml Documented by: Remdesivir 100 mg/ Sodium (Chloride) 100 mls @ 100 mls/hr IV Q24H [facility] Stop: 08/01/21 17:59 Last Admin: 07/30/21 17:17 Dose: 100 mls/hr Documented by: Lisinopril (Lisinopril 20 Mg Tab) 20 mg PO BID [facility] Last Admin: 07/30/21 08:13 Dose: 20 mg Documented by: Lorazepam (Lorazepam 2 Mg/Ml Sdv) 1 mg IV Q6H PRN PRN Reason: Nausea/Vomiting Mometasone Furoate/Formoterol Fumar (Formoterol/Mometasone 200-5 Mcg 8.8 Gm Inhaler) 0 puff IH Q8H PRN PRN Reason: Shortness of Breath Morphine Sulfate (Morphine 2 Mg/Ml Syringe) 2 mg IVPUSH Q2H PRN PRN Reason: Pain (severe 7-10) Ondansetron HCl (Ondansetron 4 Mg Tab.Dis) 4 mg PO Q6H PRN PRN Reason: Nausea Last Admin: 07/28/21 23:29 Dose: 4 mg Documented by: Oxycodone HCl (Oxycodone 5 Mg Tab) 5 mg PO Q4H PRN PRN Reason: Pain (moderate 4-6) Sodium Chloride (Sodium Chloride 0.9% 10 Ml Syringe) 10 ml FLUSH ASDIRECTED PRN PRN Reason: Keep Vein Open Last Admin: 07/28/21 21:31 Dose: 10 ml Documented by: Sotalol HCl (Sotalol 80 Mg Tab) 80 mg PO BID [facility] Last Admin: 07/30/21 08:12 Dose: 80 mg Documented by: Spironolactone (Spironolactone 25 Mg Tab) 25 mg PO DAILY [facility] Last Admin: 07/30/21 08:12 Dose: 25 mg Documented by: Temazepam (Temazepam 15 Mg Cap) 15 mg PO BEDTIME PRN PRN Reason: Sleep Last Admin: 07/28/21 23:29 Dose: 15 mg Documented by: Discontinued Medications Acetaminophen (Acetaminophen 325 Mg Tab) 650 mg PO Q4H PRN PRN Reason: Fever Greater Than 101 Last Admin: 07/28/21 23:31 Dose: 650 mg Documented by: Dexamethasone (Dexamethasone 4 Mg/Ml Sdv) 6 mg IVPUSH DAILY [facility] Stop: 08/06/21 09:01 Last Admin: 07/28/21 21:29 Dose: 6 mg Documented by: Remdesivir 200 mg/ Sodium (Chloride) 250 mls @ 250 mls/hr IV ONETIME ONE Stop: 07/28/21 20:33 Last Admin: 07/28/21 21:33 Dose: 250 mls/hr Documented by: Lisinopril (Lisinopril 10 Mg Tab) Confirm Administered Dose 20 mg .ROUTE .STK- MED ONE Stop: 07/28/21 23:19 Last Admin: 07/28/21 23:28 Dose: 20 mg Documented by: Mometasone Furoate/Formoterol Fumar (Formoterol/Mometasone 200-5 Mcg 8.8 Gm Inhaler) 0 puff IH Q8H PRN PRN Reason: Shortness of Breath Last Admin: 07/28/21 23:35 Dose: 2 puff Documented by: - Exam Quality Assessment: Supplemental Oxygen, DVT Prophylaxis General: Alert, Oriented, Cooperative, Moderate Distress Lungs: Rales. No: Crackles, Rhonchi, Wheezing Cardiovascular: Regular Rate, Regular Rhythm, No Murmurs GI/Abdominal Exam: Soft, Non-Tender, No Organomegaly, No Distention Extremities: Non-Tender, No Pedal Edema - Patient Data Result Diagrams: 07/29/21 06:01 07/29/21 06:01 Chris Results Last 24 hrs: Microbiology 07/28/21 23:15 Aerobic Blood Culture - Preliminary Blood - Arm, Left NO GROWTH AFTER 1 DAY Anaerobic Blood Culture - Preliminary NO GROWTH AFTER 1 DAY 07/28/21 23:30 Aerobic Blood Culture - Preliminary Blood - Arm, Left NO GROWTH AFTER 1 DAY Anaerobic Blood Culture - Preliminary NO GROWTH AFTER 1 DAY Sepsis Event Note - Evaluation Sepsis Screening Result: No Definite Risk - Focused Exam Vital Signs: Vital Signs Temp Pulse Pulse Resp BP BP Pulse Ox 07/30/21 15:33 94.7 F L 77 20 124/59 L 95 07/30/21 12:25 96 07/30/21 11:00 97.3 F 64 20 107/59 L 94 L 07/30/21 08:13 62 119/71 07/30/21 08:12 62 119/71 - Problem List Review Problem List Initiated/Reviewed/Updated: Yes - My Orders Last 24 Hours: My Active Orders 07/31/21 05:00 CBC WITH AUTO DIFF [HEME] Timed COMPREHENSIVE METABOLIC PN,CMP [CHEM] Timed 07/31/21 05:11 CRP [C-REACTIVE PROTEIN] [CHEM] AM D Dimer [D-DIMER QUANTITATIVE] [COAG] AM - Plan Plan:: ASSESSMENT AND PLAN COVID-19 pneumonia-complicated by hypoxia. He has not been vaccinated. Relatively stable since admission with no worsening of hypoxia. -Dexamethasone 6 mg daily, day 3 -Remdesivir 200mg given in ER then 100mg daily for 4 days, today is day 2 of 4 -Supplement oxygen as needed -Symptomatic management of cough -Isolation precautions Essential hypertension -Continue Lisinopril 20 mg po bid -continue Spironolactone 25 mg po daily Cardiovascular disease - history of cardiac stent x 3, CHF, Cardiomegaly, pacemaker,hyperlipidemia -Coreg 25 mg po bid -Lipitor 40 mg daily -Eliquis 5 mg po bid -baby asa -cardiac monitoring. Obstructive sleep apnea- home C-pap at night -continuous pulse ox. -supplemental oxygen Maintenance issues - - DVT prophylaxis - Eliquis 5 mg po bid - GI prophylaxis -PPI - Nutrition -regular - James catheter -not indicated CODE STATUS -full code Admission justification -this patient will be admitted for inpatient services and is medically appropriate meeting medical necessity for inpatient admission as outlined in my documentation. I reasonably expect the patient will require inpatient services that span a period time over 2 midnights. I reasonably expect this patient to be discharged or transferred within 96 hours [facility]. Disposition -I would anticipate discharge home Primary care physician -Dr. Gaviria Hospitalist - Dr. Bradford Baker M.D.
[2021-07-30] MEDS: atorvaSTATin 20 MG Tab PO SCH (20:19)
[2021-07-30] MEDS: Temazepam 15 MG Cap PO PRN (22:26)
[2021-07-31] MEDS: Sotalol 80 MG Tab PO SCH ×2 (11:14→20:45)
[2021-07-31] MEDS: Carvedilol 12.5 MG Tab PO SCH ×2 (11:14→20:43)
[2021-07-31] MEDS: Aspirin 81 MG Tab.EC PO SCH (11:15)
[2021-07-31] MEDS: Apixaban 5 MG Tab PO SCH ×2 (11:15→20:42)
[2021-07-31] MEDS: Lisinopril 20 MG Tab PO SCH ×2 (11:15→20:44)
[2021-07-31] MEDS: Spironolactone 25 MG Tab PO SCH (11:15)
[2021-07-31] MEDS: LORazepam 2 MG/ML SDV IV PRN (13:34)
--- NOTE | 2021-07-31 14:39 | PCM.PN ---
- General Info Date of Service: 07/31/21 Subjective Update: Mr. Denson is unfortunately required increased amounts of supplemental oxygen over the last 24 hours. Today he has been started on high flow humidified oxygen. Current saturations are adequate, he does desat with minimal activity. Functional Status: Reports: Urinating. Denies: Tolerating Diet, Ambulating - Review of Systems General: Reports: Weakness, Fatigue. Denies: Fever, Chills Pulmonary: Reports: Shortness of Breath, Cough. Denies: Pleuritic Chest Pain, Sputum, Hemoptysis, Wheezing Cardiovascular: Reports: Dyspnea on Exertion. Denies: Chest Pain, Palpitations, Orthopnea, PND, Edema, Lightheadedness Gastrointestinal: Reports: No Symptoms Genitourinary: Reports: No Symptoms - Patient Data Vitals - Most Recent: Last Vital Signs Temp 96.0 F L 07/31/21 14:24 Pulse 60 07/31/21 14:24 Resp 16 07/31/21 14:24 BP 125/69 07/31/21 14:24 Pulse Ox 97 07/31/21 14:24 Weight - Most Recent: 326 lb I&O - Last 24 Hours: Intake & Output 07/30/21 07/31/21 07/31/21 22:59 06:59 14:59 Intake Total 100 200 Output Total 1000 975 Balance -900 200 -975 Lab Results Last 24 Hours: Laboratory Results - last 24 hr 07/30/21 07/31/21 07/31/21 Range/Units 20:45 04:30 04:30 WBC 7.6 (4.5-11.0) K/uL RBC 4.64 (4.30-5.90) M/uL Hgb 13.6 (12.0-15.0) g/dL Hct 40.3 (40.0-54.0) % MCV 87 (80-98) fL MCH 29 (27-31) pg MCHC 34 (32-36) % Plt Count 200 (150-400) K/uL Neut % (Auto) 78.0 H (36-66) % Lymph % (Auto) 7.0 L (24-44) % Ceiba % (Auto) 15.0 H (2-6) % Eos % (Auto) 0.0 L (2-4) % Baso % (Auto) 0.0 (0-1) % D-Dimer, Quantitative (0.0-500.0) ng/mL Sodium 135 L (140-148) mmol/L Potassium 4.8 (3.6-5.2) mmol/L Chloride 99 L (100-108) mmol/L Carbon Dioxide 25 (21-32) mmol/L Anion Gap 15.8 H (5.0-14.0) mmol/L BUN 19 H (7-18) mg/dL Creatinine 0.8 (0.8-1.3) mg/dL Est Cr Clr Drug Dosing 111.31 mL/min Estimated GFR (MDRD) > 60 (>60) Glucose 241 H (74-106) mg/dL Calcium 8.3 L (8.5-10.1) mg/dL Total Bilirubin 0.6 0.5 (0.2-1.0) mg/dL Direct Bilirubin 0.18 (0.0-0.2) mg/dL Indirect Bilirubin 0.42 AST 37 33 (15-37) U/L ALT 28 32 (12-78) U/L Alkaline Phosphatase 76 78 (46-116) U/L C-Reactive Protein (0.0-0.3) mg/dL Total Protein 6.4 6.0 L (6.4-8.2) g/dL Albumin 3.3 L 3.0 L (3.4-5.0) g/dL Globulin 3.1 3.0 (2.3-3.5) g/dL Albumin/Globulin Ratio 1.1 L 1.0 L (1.2-2.2) 07/31/21 07/31/21 Range/Units 04:30 04:30 WBC (4.5-11.0) K/uL RBC (4.30-5.90) M/uL Hgb (12.0-15.0) g/dL Hct (40.0-54.0) % MCV (80-98) fL MCH (27-31) pg MCHC (32-36) % Plt Count (150-400) K/uL Neut % (Auto) (36-66) % Lymph % (Auto) (24-44) % Ceiba % (Auto) (2-6) % Eos % (Auto) (2-4) % Baso % (Auto) (0-1) % D-Dimer, Quantitative 610.49 H (0.0-500.0) ng/mL Sodium (140-148) mmol/L Potassium (3.6-5.2) mmol/L Chloride (100-108) mmol/L Carbon Dioxide (21-32) mmol/L Anion Gap (5.0-14.0) mmol/L BUN (7-18) mg/dL Creatinine (0.8-1.3) mg/dL Est Cr Clr Drug Dosing mL/min Estimated GFR (MDRD) (>60) Glucose (74-106) mg/dL Calcium (8.5-10.1) mg/dL Total Bilirubin (0.2-1.0) mg/dL Direct Bilirubin (0.0-0.2) mg/dL Indirect Bilirubin AST (15-37) U/L ALT (12-78) U/L Alkaline Phosphatase (46-116) U/L C-Reactive Protein 3.02 H (0.0-0.3) mg/dL Total Protein (6.4-8.2) g/dL Albumin (3.4-5.0) g/dL Globulin (2.3-3.5) g/dL Albumin/Globulin Ratio (1.2-2.2) Chris Results Last 24 Hours: Microbiology 07/28/21 23:30 Aerobic Blood Culture - Preliminary Blood - Arm, Left NO GROWTH AFTER 2 DAYS Anaerobic Blood Culture - Preliminary NO GROWTH AFTER 2 DAYS 07/28/21 23:15 Aerobic Blood Culture - Preliminary Blood - Arm, Left NO GROWTH AFTER 2 DAYS Anaerobic Blood Culture - Preliminary NO GROWTH AFTER 2 DAYS Med Orders - Current: Current Medications Acetaminophen (Acetaminophen 325 Mg Tab) 650 mg PO Q4H PRN PRN Reason: Fever Greater Than 101 Albuterol (Albuterol 8 Gm Inhaler) 8.5 gm INH Q4H PRN PRN Reason: Shortness of Breath Apixaban (Apixaban 5 Mg Tab) 5 mg PO BID [facility] Last Admin: 07/31/21 11:15 Dose: 5 mg Documented by: Aspirin (Aspirin 81 Mg Tab.Ec) 81 mg PO DAILY [facility] Last Admin: 07/31/21 11:15 Dose: 81 mg Documented by: Atorvastatin Calcium (Atorvastatin 20 Mg Tab) 40 mg PO BEDTIME [facility] Last Admin: 07/30/21 20:19 Dose: 40 mg Documented by: Baricitinib (Baricitinib 2 Mg Tab) 4 mg PO DAILY [facility] Stop: 08/13/21 09:01 Last Admin: 07/31/21 13:05 Dose: 4 mg Documented by: Carvedilol (Carvedilol 12.5 Mg Tab) 25 mg PO BID [facility] Last Admin: 07/31/21 11:14 Dose: 25 mg Documented by: Dexamethasone (Dexamethasone 4 Mg/Ml Sdv) 6 mg IVPUSH Q24H [facility] Stop: 08/06/21 16:01 Last Admin: 07/30/21 17:10 Dose: 6 mg Documented by: Guaifenesin/Dextromethorphan (Guaifenesin/Dextromethorphan 100-10 Mg/5 Ml Soln 10 Ml Cup) 10 ml PO Q4H PRN PRN Reason: Cough Last Admin: 07/30/21 20:28 Dose: 10 ml Documented by: Remdesivir 100 mg/ Sodium (Chloride) 100 mls @ 100 mls/hr IV Q24H [facility] Stop: 08/01/21 17:59 Last Admin: 07/30/21 17:17 Dose: 100 mls/hr Documented by: Ceftriaxone Sodium 1 gm/ (Sodium Chloride) 50 mls @ 100 mls/hr IV Q24H [facility] Doxycycline Hyclate 100 mg/ (Sodium Chloride) 100 mls @ 100 mls/hr IV Q12HR [facility] Lisinopril (Lisinopril 20 Mg Tab) 20 mg PO BID [facility] Last Admin: 07/31/21 11:15 Dose: 20 mg Documented by: Lorazepam (Lorazepam 2 Mg/Ml Sdv) 1 mg IV Q6H PRN PRN Reason: Nausea/Vomiting Last Admin: 07/31/21 13:34 Dose: 1 mg Documented by: Mometasone Furoate/Formoterol Fumar (Formoterol/Mometasone 200-5 Mcg 8.8 Gm Inhaler) 0 puff IH Q8H PRN PRN Reason: Shortness of Breath Morphine Sulfate (Morphine 2 Mg/Ml Syringe) 2 mg IVPUSH Q2H PRN PRN Reason: Pain (severe 7-10) Ondansetron HCl (Ondansetron 4 Mg Tab.Dis) 4 mg PO Q6H PRN PRN Reason: Nausea Last Admin: 07/28/21 23:29 Dose: 4 mg Documented by: Oxycodone HCl (Oxycodone 5 Mg Tab) 5 mg PO Q4H PRN PRN Reason: Pain (moderate 4-6) Sodium Chloride (Sodium Chloride 0.9% 10 Ml Syringe) 10 ml FLUSH ASDIRECTED PRN PRN Reason: Keep Vein Open Last Admin: 07/28/21 21:31 Dose: 10 ml Documented by: Sotalol HCl (Sotalol 80 Mg Tab) 80 mg PO BID [facility] Last Admin: 07/31/21 11:14 Dose: 80 mg Documented by: Spironolactone (Spironolactone 25 Mg Tab) 25 mg PO DAILY [facility] Last Admin: 07/31/21 11:15 Dose: 25 mg Documented by: Temazepam (Temazepam 15 Mg Cap) 15 mg PO BEDTIME PRN PRN Reason: Sleep Last Admin: 07/30/21 22:26 Dose: 15 mg Documented by: Discontinued Medications Acetaminophen (Acetaminophen 325 Mg Tab) 650 mg PO Q4H PRN PRN Reason: Fever Greater Than 101 Last Admin: 07/28/21 23:31 Dose: 650 mg Documented by: Dexamethasone (Dexamethasone 4 Mg/Ml Sdv) 6 mg IVPUSH DAILY [facility] Stop: 08/06/21 09:01 Last Admin: 07/28/21 21:29 Dose: 6 mg Documented by: Remdesivir 200 mg/ Sodium (Chloride) 250 mls @ 250 mls/hr IV ONETIME ONE Stop: 07/28/21 20:33 Last Admin: 07/28/21 21:33 Dose: 250 mls/hr Documented by: Lisinopril (Lisinopril 10 Mg Tab) Confirm Administered Dose 20 mg .ROUTE .STK- MED ONE Stop: 07/28/21 23:19 Last Admin: 07/28/21 23:28 Dose: 20 mg Documented by: Mometasone Furoate/Formoterol Fumar (Formoterol/Mometasone 200-5 Mcg 8.8 Gm Inhaler) 0 puff IH Q8H PRN PRN Reason: Shortness of Breath Last Admin: 07/28/21 23:35 Dose: 2 puff Documented by: - Exam Quality Assessment: Supplemental Oxygen, DVT Prophylaxis General: Alert, Oriented, Cooperative, Moderate Distress Lungs: Rales. No: Crackles, Rhonchi, Wheezing Cardiovascular: Regular Rate, Regular Rhythm, No Murmurs GI/Abdominal Exam: Soft, Non-Tender, No Organomegaly, No Distention Extremities: Non-Tender, No Pedal Edema - Patient Data Lab Results Last 24 hrs: Laboratory Results - last 24 hr 07/30/21 07/31/21 07/31/21 Range/Units 20:45 04:30 04:30 WBC 7.6 (4.5-11.0) K/uL RBC 4.64 (4.30-5.90) M/uL Hgb 13.6 (12.0-15.0) g/dL Hct 40.3 (40.0-54.0) % MCV 87 (80-98) fL MCH 29 (27-31) pg MCHC 34 (32-36) % Plt Count 200 (150-400) K/uL Neut % (Auto) 78.0 H (36-66) % Lymph % (Auto) 7.0 L (24-44) % Ceiba % (Auto) 15.0 H (2-6) % Eos % (Auto) 0.0 L (2-4) % Baso % (Auto) 0.0 (0-1) % D-Dimer, Quantitative (0.0-500.0) ng/mL Sodium 135 L (140-148) mmol/L Potassium 4.8 (3.6-5.2) mmol/L Chloride 99 L (100-108) mmol/L Carbon Dioxide 25 (21-32) mmol/L Anion Gap 15.8 H (5.0-14.0) mmol/L BUN 19 H (7-18) mg/dL Creatinine 0.8 (0.8-1.3) mg/dL Est Cr Clr Drug Dosing 111.31 mL/min Estimated GFR (MDRD) > 60 (>60) Glucose 241 H (74-106) mg/dL Calcium 8.3 L (8.5-10.1) mg/dL Total Bilirubin 0.6 0.5 (0.2-1.0) mg/dL Direct Bilirubin 0.18 (0.0-0.2) mg/dL Indirect Bilirubin 0.42 AST 37 33 (15-37) U/L ALT 28 32 (12-78) U/L Alkaline Phosphatase 76 78 (46-116) U/L C-Reactive Protein (0.0-0.3) mg/dL Total Protein 6.4 6.0 L (6.4-8.2) g/dL Albumin 3.3 L 3.0 L (3.4-5.0) g/dL Globulin 3.1 3.0 (2.3-3.5) g/dL Albumin/Globulin Ratio 1.1 L 1.0 L (1.2-2.2) 07/31/21 07/31/21 Range/Units 04:30 04:30 WBC (4.5-11.0) K/uL RBC (4.30-5.90) M/uL Hgb (12.0-15.0) g/dL Hct (40.0-54.0) % MCV (80-98) fL MCH (27-31) pg MCHC (32-36) % Plt Count (150-400) K/uL Neut % (Auto) (36-66) % Lymph % (Auto) (24-44) % Ceiba % (Auto) (2-6) % Eos % (Auto) (2-4) % Baso % (Auto) (0-1) % D-Dimer, Quantitative 610.49 H (0.0-500.0) ng/mL Sodium (140-148) mmol/L Potassium (3.6-5.2) mmol/L Chloride (100-108) mmol/L Carbon Dioxide (21-32) mmol/L Anion Gap (5.0-14.0) mmol/L BUN (7-18) mg/dL Creatinine (0.8-1.3) mg/dL Est Cr Clr Drug Dosing mL/min Estimated GFR (MDRD) (>60) Glucose (74-106) mg/dL Calcium (8.5-10.1) mg/dL Total Bilirubin (0.2-1.0) mg/dL Direct Bilirubin (0.0-0.2) mg/dL Indirect Bilirubin AST (15-37) U/L ALT (12-78) U/L Alkaline Phosphatase (46-116) U/L C-Reactive Protein 3.02 H (0.0-0.3) mg/dL Total Protein (6.4-8.2) g/dL Albumin (3.4-5.0) g/dL Globulin (2.3-3.5) g/dL Albumin/Globulin Ratio (1.2-2.2) Result Diagrams: 07/31/21 04:30 07/31/21 04:30 Chris Results Last 24 hrs: Microbiology 07/28/21 23:30 Aerobic Blood Culture - Preliminary Blood - Arm, Left NO GROWTH AFTER 2 DAYS Anaerobic Blood Culture - Preliminary NO GROWTH AFTER 2 DAYS 07/28/21 23:15 Aerobic Blood Culture - Preliminary Blood - Arm, Left NO GROWTH AFTER 2 DAYS Anaerobic Blood Culture - Preliminary NO GROWTH AFTER 2 DAYS Sepsis Event Note - Evaluation Sepsis Screening Result: No Definite Risk - Focused Exam Vital Signs: Vital Signs Temp Pulse Pulse Resp BP BP Pulse Ox 07/31/21 14:24 96.0 F L 60 16 125/69 97 07/31/21 12:37 97 07/31/21 11:15 127/68 07/31/21 11:14 60 127/68 07/31/21 11:00 94.5 F L 60 18 127/68 90 L 07/31/21 08:00 91 L 07/31/21 07:00 93.6 F L 60 18 124/57 L 91 L 07/31/21 02:48 60 16 90 L - Problem List Review Problem List Initiated/Reviewed/Updated: Yes - My Orders Last 24 Hours: My Active Orders 07/31/21 13:00 Baricitinib [Olumiant] 4 mg PO DAILY 07/31/21 14:45 Doxycycline [Vibramycin] 100 mg Sodium Chloride 0.9% [Normal Saline] 100 ml IV Q12HR cefTRIAXone [Rocephin] 1 gm Sodium Chloride 0.9% [Normal Saline] 50 ml IV Q24H - Plan Plan:: ASSESSMENT AND PLAN COVID-19 pneumonia-complicated by hypoxia. He has not been vaccinated. He has required increased levels of supplemental oxygen over the past 24 hours. -Humidified high flow oxygen -Dexamethasone 6 mg daily, day 4 -Remdesivir 200mg given in ER then 100mg daily for 4 days, today is day 3 of 4 -Add baricitinib 4 mg p.o. daily, today is day 1 of 14 -Add antibiotic therapy because of increased hypoxia; IV ceftriaxone and do xycycline -Symptomatic management of cough -Isolation precautions Acute hypoxic respiratory failure-may be developing ARDS with worsening hypoxia -Continue to monitor closely -Management as above Essential hypertension -Continue Lisinopril 20 mg po bid -continue Spironolactone 25 mg po daily Cardiovascular disease - history of cardiac stent x 3, CHF, Cardiomegaly, pacemaker,hyperlipidemia -Coreg 25 mg po bid -Lipitor 40 mg daily -Eliquis 5 mg po bid -baby asa -cardiac monitoring. Obstructive sleep apnea- home C-pap at night -continuous pulse ox. -supplemental oxygen Maintenance issues - - DVT prophylaxis - Eliquis 5 mg po bid - GI prophylaxis -PPI - Nutrition -regular - James catheter -not indicated CODE STATUS -full code Admission justification -this patient will be admitted for inpatient services and is medically appropriate meeting medical necessity for inpatient admission as outlined in my documentation. I reasonably expect the patient will require inpatient services that span a period time over 2 midnights. I reasonably expect this patient to be discharged or transferred within 96 hours after admission to the [facility]. Disposition -I would anticipate discharge home Primary care physician -Dr. Gaviria Hospitalist - Dr. Bradford Baker M.D.
[2021-07-31] MEDS: Dexamethasone 4 MG/ML SDV IVPUSH SCH (15:40)
[2021-07-31] MEDS: cefTRIAXone 1 GM in Sodium Chloride 0.9% 50 ML IV SCH (15:40)
[2021-07-31] MEDS: Doxycycline 100 MG in Sodium Chloride 0.9% 100 ML IV SCH (16:26)
[2021-07-31] MEDS: REMDESIVIR 100 MG in Sodium Chloride 0.9% 100 ML IV SCH (17:41)
[2021-07-31] MEDS: atorvaSTATin 20 MG Tab PO SCH (20:42)
[2021-07-31] MEDS: Mometasone Furoate Nasal Spray 17 GM Canister NAS SCH (20:45)
[2021-07-31] MEDS: Temazepam 15 MG Cap PO PRN (21:33)
[2021-08-01] MEDS: Doxycycline 100 MG in Sodium Chloride 0.9% 100 ML IV SCH ×2 (03:37→15:56)
[2021-08-01] MEDS: Sotalol 80 MG Tab PO SCH ×2 (08:25→21:45)
[2021-08-01] MEDS: Spironolactone 25 MG Tab PO SCH (08:29)
[2021-08-01] MEDS: Apixaban 5 MG Tab PO SCH ×2 (08:29→21:46)
[2021-08-01] MEDS: Carvedilol 12.5 MG Tab PO SCH ×2 (08:30→21:46)
[2021-08-01] MEDS: Lisinopril 20 MG Tab PO SCH ×2 (08:30→21:46)
[2021-08-01] MEDS: Aspirin 81 MG Tab.EC PO SCH (08:30)
[2021-08-01] MEDS: Mometasone Furoate Nasal Spray 17 GM Canister NAS SCH ×2 (08:33→21:46)
--- NOTE | 2021-08-01 13:33 | PCM.PN ---
- General Info Date of Service: 08/01/21 Subjective Update: No acute events overnight. Respiratory status has been stable. He is currently using heated/high flow nasal cannula. Dyspnea with any activity but comfortable at rest. No fevers. Patient reports that he is scared and worried that his Covid infection will get worse. No fevers. No diarrhea. Tolerating treatment so far. Functional Status: Reports: Pain Controlled, Tolerating Diet - Review of Systems General: Reports: Weakness Pulmonary: Reports: Shortness of Breath, Cough - Patient Data Vitals - Most Recent: Last Vital Signs Temp 34.6 C L 08/01/21 11:00 Pulse 69 08/01/21 11:00 Resp 18 08/01/21 11:00 BP 138/75 08/01/21 11:00 Pulse Ox 94 L 08/01/21 12:52 Weight - Most Recent: 147.871 kg I&O - Last 24 Hours: Intake & Output 07/31/21 08/01/21 08/01/21 22:59 06:59 14:59 Intake Total 400 Output Total 500 700 300 Balance -100 -700 -300 Lab Results Last 24 Hours: Laboratory Results - last 24 hr 07/31/21 Range/Units 21:06 Total Bilirubin 0.5 (0.2-1.0) mg/dL Direct Bilirubin 0.16 (0.0-0.2) mg/dL Indirect Bilirubin 0.34 AST 32 (15-37) U/L ALT 31 (12-78) U/L Alkaline Phosphatase 82 (46-116) U/L Total Protein 6.1 L (6.4-8.2) g/dL Albumin 3.1 L (3.4-5.0) g/dL Globulin 3.0 (2.3-3.5) g/dL Albumin/Globulin Ratio 1.0 L (1.2-2.2) Chris Results Last 24 Hours: Microbiology 07/28/21 23:30 Aerobic Blood Culture - Preliminary Blood - Arm, Left NO GROWTH AFTER 3 DAYS Anaerobic Blood Culture - Preliminary NO GROWTH AFTER 3 DAYS 07/28/21 23:15 Aerobic Blood Culture - Preliminary Blood - Arm, Left NO GROWTH AFTER 3 DAYS Anaerobic Blood Culture - Preliminary NO GROWTH AFTER 3 DAYS Med Orders - Current: Current Medications Acetaminophen (Acetaminophen 325 Mg Tab) 650 mg PO Q4H PRN PRN Reason: Fever Greater Than 101 Albuterol (Albuterol 8 Gm Inhaler) 8.5 gm INH Q4H PRN PRN Reason: Shortness of Breath Apixaban (Apixaban 5 Mg Tab) 5 mg PO BID [facility] Last Admin: 08/01/21 08:29 Dose: 5 mg Documented by: Aspirin (Aspirin 81 Mg Tab.Ec) 81 mg PO DAILY [facility] Last Admin: 08/01/21 08:30 Dose: 81 mg Documented by: Atorvastatin Calcium (Atorvastatin 20 Mg Tab) 40 mg PO BEDTIME [facility] Last Admin: 07/31/21 20:42 Dose: 40 mg Documented by: Baricitinib (Baricitinib 2 Mg Tab) 4 mg PO DAILY [facility] Stop: 08/13/21 09:01 Last Admin: 08/01/21 08:30 Dose: 4 mg Documented by: Carvedilol (Carvedilol 12.5 Mg Tab) 25 mg PO BID [facility] Last Admin: 08/01/21 08:30 Dose: 25 mg Documented by: Dexamethasone (Dexamethasone 4 Mg/Ml Sdv) 6 mg IVPUSH Q24H [facility] Stop: 08/06/21 16:01 Last Admin: 07/31/21 15:40 Dose: 6 mg Documented by: Guaifenesin/Dextromethorphan (Guaifenesin/Dextromethorphan 100-10 Mg/5 Ml Soln 10 Ml Cup) 10 ml PO Q4H PRN PRN Reason: Cough Last Admin: 07/30/21 20:28 Dose: 10 ml Documented by: Remdesivir 100 mg/ Sodium (Chloride) 100 mls @ 100 mls/hr IV Q24H [facility] Stop: 08/01/21 17:59 Last Admin: 07/31/21 17:41 Dose: 100 mls/hr Documented by: Ceftriaxone Sodium 1 gm/ (Sodium Chloride) 50 mls @ 100 mls/hr IV Q24H [facility] Last Admin: 07/31/21 15:40 Dose: 100 mls/hr Documented by: Doxycycline Hyclate 100 mg/ (Sodium Chloride) 100 mls @ 100 mls/hr IV Q12H [facility] Last Admin: 08/01/21 03:37 Dose: 100 mls/hr Documented by: Lisinopril (Lisinopril 20 Mg Tab) 20 mg PO BID [facility] Last Admin: 08/01/21 08:30 Dose: 20 mg Documented by: Lorazepam (Lorazepam 2 Mg/Ml Sdv) 1 mg IV Q6H PRN PRN Reason: Nausea/Vomiting Last Admin: 07/31/21 13:34 Dose: 1 mg Documented by: Mometasone Furoate (Mometasone Furoate Nasal [place] 17 Gm Canister) 0 gm CRISTINA BID [facility] Last Admin: 08/01/21 08:33 Dose: 2 dose Documented by: Mometasone Furoate/Formoterol Fumar (Formoterol/Mometasone 200-5 Mcg 8.8 Gm Inhaler) 0 puff IH Q8H PRN PRN Reason: Shortness of Breath Morphine Sulfate (Morphine 2 Mg/Ml Syringe) 2 mg IVPUSH Q2H PRN PRN Reason: Pain (severe 7-10) Ondansetron HCl (Ondansetron 4 Mg Tab.Dis) 4 mg PO Q6H PRN PRN Reason: Nausea Last Admin: 07/28/21 23:29 Dose: 4 mg Documented by: Oxycodone HCl (Oxycodone 5 Mg Tab) 5 mg PO Q4H PRN PRN Reason: Pain (moderate 4-6) Sodium Chloride (Sodium Chloride 0.9% 10 Ml Syringe) 10 ml FLUSH ASDIRECTED PRN PRN Reason: Keep Vein Open Last Admin: 07/28/21 21:31 Dose: 10 ml Documented by: Sotalol HCl (Sotalol 80 Mg Tab) 80 mg PO BID [facility] Last Admin: 08/01/21 08:25 Dose: 80 mg Documented by: Spironolactone (Spironolactone 25 Mg Tab) 25 mg PO DAILY [facility] Last Admin: 08/01/21 08:29 Dose: 25 mg Documented by: Temazepam (Temazepam 15 Mg Cap) 15 mg PO BEDTIME PRN PRN Reason: Sleep Last Admin: 07/31/21 21:33 Dose: 15 mg Documented by: Discontinued Medications Acetaminophen (Acetaminophen 325 Mg Tab) 650 mg PO Q4H PRN PRN Reason: Fever Greater Than 101 Last Admin: 07/28/21 23:31 Dose: 650 mg Documented by: Dexamethasone (Dexamethasone 4 Mg/Ml Sdv) 6 mg IVPUSH DAILY [facility] Stop: 08/06/21 09:01 Last Admin: 07/28/21 21:29 Dose: 6 mg Documented by: Remdesivir 200 mg/ Sodium (Chloride) 250 mls @ 250 mls/hr IV ONETIME ONE Stop: 07/28/21 20:33 Last Admin: 07/28/21 21:33 Dose: 250 mls/hr Documented by: Lisinopril (Lisinopril 10 Mg Tab) Confirm Administered Dose 20 mg .ROUTE .STK- MED ONE Stop: 07/28/21 23:19 Last Admin: 07/28/21 23:28 Dose: 20 mg Documented by: Mometasone Furoate/Formoterol Fumar (Formoterol/Mometasone 200-5 Mcg 8.8 Gm Inhaler) 0 puff IH Q8H PRN PRN Reason: Shortness of Breath Last Admin: 07/28/21 23:35 Dose: 2 puff Documented by: - Exam Quality Assessment: Supplemental Oxygen General: Alert, Oriented, Cooperative, No Acute Distress Lungs: Normal Respiratory Effort, Crackles (rare both mid lung area) Cardiovascular: Regular Rate, Regular Rhythm Extremities: No Pedal Edema Psy/Mental Status: Alert, Normal Affect - Patient Data Lab Results Last 24 hrs: Laboratory Results - last 24 hr 07/31/21 Range/Units 21:06 Total Bilirubin 0.5 (0.2-1.0) mg/dL Direct Bilirubin 0.16 (0.0-0.2) mg/dL Indirect Bilirubin 0.34 AST 32 (15-37) U/L ALT 31 (12-78) U/L Alkaline Phosphatase 82 (46-116) U/L Total Protein 6.1 L (6.4-8.2) g/dL Albumin 3.1 L (3.4-5.0) g/dL Globulin 3.0 (2.3-3.5) g/dL Albumin/Globulin Ratio 1.0 L (1.2-2.2) Result Diagrams: 07/31/21 04:30 07/31/21 04:30 Chris Results Last 24 hrs: Microbiology 07/28/21 23:30 Aerobic Blood Culture - Preliminary Blood - Arm, Left NO GROWTH AFTER 3 DAYS Anaerobic Blood Culture - Preliminary NO GROWTH AFTER 3 DAYS 07/28/21 23:15 Aerobic Blood Culture - Preliminary Blood - Arm, Left NO GROWTH AFTER 3 DAYS Anaerobic Blood Culture - Preliminary NO GROWTH AFTER 3 DAYS Sepsis Event Note - Evaluation Sepsis Screening Result: No Definite Risk - Focused Exam Vital Signs: Vital Signs Temp Pulse Pulse Resp BP BP Pulse Ox 08/01/21 12:52 94 L 08/01/21 11:00 34.6 C L 69 18 138/75 98 08/01/21 08:30 61 123/52 L 08/01/21 08:25 61 123/52 L 08/01/21 07:00 63 18 123/52 L 86 L 08/01/21 04:20 35.6 C L 60 16 132/75 94 L - Problem List Review Problem List Initiated/Reviewed/Updated: Yes - My Orders Last 24 Hours: My Active Orders 08/01/21 12:49 Discontinue Telemetry Monitoring [Cardiac Monitoring Discontinue] [RC] Click to Edit 08/02/21 05:00 BASIC METABOLIC PANEL,BMP [CHEM] Timed C-REACTIVE PROTEIN [CHEM] Timed D-DIMER QUANTITATIVE [COAG] Timed - Plan Plan:: ASSESSMENT AND PLAN - COVID-19 pneumonia-complicated by acute respiratory failure with hypoxia. Onset of symptoms 07/22. He has not been vaccinated. Seems to have stabilized but currently requiring heated/high flow nasal cannula. Tolerating treatment so far. Dyspnea with any activity. -Repeat labs in the morning -Humidified high flow oxygen -Dexamethasone 6 mg daily, day 5 -Remdesivir 200mg given in ER then 100mg daily for 4 days, today is day 4 of 4 -Add baricitinib 4 mg p.o. daily, today is day 2 of 14 -Add antibiotic therapy because of increased hypoxia; IV ceftriaxone and doxycycline (day 2) -Symptomatic management of cough -Isolation precautions Acute hypoxic respiratory failure-may be developing ARDS with worsening hypoxia -Continue to monitor closely -Management as above Essential hypertension-stable so far. -Continue Lisinopril 20 mg po bid -continue Spironolactone 25 mg po daily Cardiovascular disease - history of cardiac stent x 3, CHF, Cardiomegaly, pacemaker,hyperlipidemia. Stable. -Coreg 25 mg po bid -Lipitor 40 mg daily -Eliquis 5 mg po bid -baby asa -cardiac monitoring. Obstructive sleep apnea- home C-pap at night. -continuous pulse ox. -supplemental oxygen Maintenance issues - - DVT prophylaxis - Eliquis 5 mg po bid - GI prophylaxis -PPI - Nutrition -regular Disposition -I would anticipate discharge home after the hospital stay Dung Dey MD
[2021-08-01] MEDS: cefTRIAXone 1 GM in Sodium Chloride 0.9% 50 ML IV SCH (15:12)
[2021-08-01] MEDS: Dexamethasone 4 MG/ML SDV IVPUSH SCH (15:59)
[2021-08-01] MEDS: REMDESIVIR 100 MG in Sodium Chloride 0.9% 100 ML IV SCH (17:16)
[2021-08-01] MEDS: Temazepam 15 MG Cap PO PRN (21:45)
[2021-08-01] MEDS: LORazepam 2 MG/ML SDV IV PRN (21:45)
[2021-08-01] MEDS: atorvaSTATin 20 MG Tab PO SCH (21:46)
[2021-08-01] MEDS: guaiFENesin/Dextromethorphan 100-10 MG/5 ML Soln 10 ML Cup PO PRN (21:47)
[2021-08-02] MEDS: Doxycycline 100 MG in Sodium Chloride 0.9% 100 ML IV SCH ×2 (04:10→16:05)
[2021-08-02] MEDS: Sotalol 80 MG Tab PO SCH ×2 (09:07→20:32)
[2021-08-02] MEDS: Spironolactone 25 MG Tab PO SCH (09:07)
[2021-08-02] MEDS: Mometasone Furoate Nasal Spray 17 GM Canister NAS SCH ×2 (09:08→20:34)
[2021-08-02] MEDS: Carvedilol 12.5 MG Tab PO SCH ×2 (09:08→20:33)
[2021-08-02] MEDS: Apixaban 5 MG Tab PO SCH ×2 (09:08→20:34)
[2021-08-02] MEDS: Lisinopril 20 MG Tab PO SCH ×2 (09:08→20:33)
[2021-08-02] MEDS: Aspirin 81 MG Tab.EC PO SCH (09:08)
--- NOTE | 2021-08-02 14:01 | PCM.PN ---
- General Info Date of Service: 08/02/21 Subjective Update: No acute events overnight. No significant changes since yesterday. May be feels a little better today. Still short of breath with activity but comfortable at rest. Intermittent cough. Appetite is not great and the thought of food makes him feel nauseated. No fevers. Oxygenation does seem to be slowly improving. He was up and sitting in the chair today. - Patient Data Vitals - Most Recent: Last Vital Signs Temp 35.6 C L 08/02/21 11:08 Pulse 64 08/02/21 11:08 Resp 18 08/02/21 11:08 BP 120/54 L 08/02/21 11:08 Pulse Ox 90 L 08/02/21 13:14 Weight - Most Recent: 147.871 kg I&O - Last 24 Hours: Intake & Output 08/01/21 08/02/21 08/02/21 22:59 06:59 14:59 Intake Total 1045 100 Output Total 700 850 800 Balance 345 750 -800 Lab Results Last 24 Hours: Laboratory Results - last 24 hr 08/02/21 08/02/21 Range/Units 05:00 05:51 D-Dimer, Quantitative 1783.06 H (0.0-500.0) ng/mL Sodium 133 L (140-148) mmol/L Potassium 4.7 (3.6-5.2) mmol/L Chloride 97 L (100-108) mmol/L Carbon Dioxide 25 (21-32) mmol/L Anion Gap 15.7 H (5.0-14.0) mmol/L BUN 19 H (7-18) mg/dL Creatinine 0.8 (0.8-1.3) mg/dL Est Cr Clr Drug Dosing 111.31 mL/min Estimated GFR (MDRD) > 60 (>60) Glucose 231 H (74-106) mg/dL Calcium 8.3 L (8.5-10.1) mg/dL C-Reactive Protein 2.14 H (0.0-0.3) mg/dL Chris Results Last 24 Hours: Microbiology 07/28/21 23:30 Aerobic Blood Culture - Preliminary Blood - Arm, Left NO GROWTH AFTER 4 DAYS Anaerobic Blood Culture - Preliminary NO GROWTH AFTER 4 DAYS 07/28/21 23:15 Aerobic Blood Culture - Preliminary Blood - Arm, Left NO GROWTH AFTER 4 DAYS Anaerobic Blood Culture - Preliminary NO GROWTH AFTER 4 DAYS Med Orders - Current: Current Medications Acetaminophen (Acetaminophen 325 Mg Tab) 650 mg PO Q4H PRN PRN Reason: Fever Greater Than 101 Albuterol (Albuterol 8 Gm Inhaler) 8.5 gm INH Q4H PRN PRN Reason: Shortness of Breath Apixaban (Apixaban 5 Mg Tab) 5 mg PO BID [facility] Last Admin: 08/02/21 09:08 Dose: 5 mg Documented by: Aspirin (Aspirin 81 Mg Tab.Ec) 81 mg PO DAILY [facility] Last Admin: 08/02/21 09:08 Dose: 81 mg Documented by: Atorvastatin Calcium (Atorvastatin 20 Mg Tab) 40 mg PO BEDTIME [facility] Last Admin: 08/01/21 21:46 Dose: 40 mg Documented by: Baricitinib (Baricitinib 2 Mg Tab) 4 mg PO DAILY [facility] Stop: 08/13/21 09:01 Last Admin: 08/02/21 09:08 Dose: 4 mg Documented by: Carvedilol (Carvedilol 12.5 Mg Tab) 25 mg PO BID [facility] Last Admin: 08/02/21 09:08 Dose: 25 mg Documented by: Dexamethasone (Dexamethasone 4 Mg/Ml Sdv) 6 mg IVPUSH Q24H [facility] Stop: 08/06/21 16:01 Last Admin: 08/01/21 15:59 Dose: 6 mg Documented by: Guaifenesin/Dextromethorphan (Guaifenesin/Dextromethorphan 100-10 Mg/5 Ml Soln 10 Ml Cup) 10 ml PO Q4H PRN PRN Reason: Cough Last Admin: 08/01/21 21:47 Dose: 10 ml Documented by: Ceftriaxone Sodium 1 gm/ (Sodium Chloride) 50 mls @ 100 mls/hr IV Q24H [facility] Last Admin: 08/01/21 15:12 Dose: 100 mls/hr Documented by: Doxycycline Hyclate 100 mg/ (Sodium Chloride) 100 mls @ 100 mls/hr IV Q12H [facility] Last Admin: 08/02/21 04:10 Dose: 100 mls/hr Documented by: Lisinopril (Lisinopril 20 Mg Tab) 20 mg PO BID [facility] Last Admin: 08/02/21 09:08 Dose: 20 mg Documented by: Lorazepam (Lorazepam 2 Mg/Ml Sdv) 1 mg IV Q6H PRN PRN Reason: Nausea/Vomiting Last Admin: 08/01/21 21:45 Dose: 1 mg Documented by: Mometasone Furoate (Mometasone Furoate Nasal [place] 17 Gm Canister) 0 gm CRISTINA BID [facility] Last Admin: 08/02/21 09:08 Dose: 1 dose Documented by: Mometasone Furoate/Formoterol Fumar (Formoterol/Mometasone 200-5 Mcg 8.8 Gm Inhaler) 0 puff IH Q8H PRN PRN Reason: Shortness of Breath Morphine Sulfate (Morphine 2 Mg/Ml Syringe) 2 mg IVPUSH Q2H PRN PRN Reason: Pain (severe 7-10) Ondansetron HCl (Ondansetron 4 Mg Tab.Dis) 4 mg PO Q6H PRN PRN Reason: Nausea Last Admin: 07/28/21 23:29 Dose: 4 mg Documented by: Oxycodone HCl (Oxycodone 5 Mg Tab) 5 mg PO Q4H PRN PRN Reason: Pain (moderate 4-6) Sodium Chloride (Sodium Chloride 0.9% 10 Ml Syringe) 10 ml FLUSH ASDIRECTED PRN PRN Reason: Keep Vein Open Last Admin: 07/28/21 21:31 Dose: 10 ml Documented by: Sotalol HCl (Sotalol 80 Mg Tab) 80 mg PO BID [facility] Last Admin: 08/02/21 09:07 Dose: 80 mg Documented by: Spironolactone (Spironolactone 25 Mg Tab) 25 mg PO DAILY [facility] Last Admin: 08/02/21 09:07 Dose: 25 mg Documented by: Temazepam (Temazepam 15 Mg Cap) 15 mg PO BEDTIME PRN PRN Reason: Sleep Last Admin: 08/01/21 21:45 Dose: 15 mg Documented by: Discontinued Medications Acetaminophen (Acetaminophen 325 Mg Tab) 650 mg PO Q4H PRN PRN Reason: Fever Greater Than 101 Last Admin: 07/28/21 23:31 Dose: 650 mg Documented by: Dexamethasone (Dexamethasone 4 Mg/Ml Sdv) 6 mg IVPUSH DAILY [facility] Stop: 08/06/21 09:01 Last Admin: 07/28/21 21:29 Dose: 6 mg Documented by: Remdesivir 200 mg/ Sodium (Chloride) 250 mls @ 250 mls/hr IV ONETIME ONE Stop: 10/28/21 20:33 Last Admin: 07/28/21 21:33 Dose: 250 mls/hr Documented by: Remdesivir 100 mg/ Sodium (Chloride) 100 mls @ 100 mls/hr IV Q24H [facility] Stop: 08/01/21 17:59 Last Admin: 08/01/21 17:16 Dose: 100 mls/hr Documented by: Lisinopril (Lisinopril 10 Mg Tab) Confirm Administered Dose 20 mg .ROUTE .STK-ME D ONE Stop: 07/28/21 23:19 Last Admin: 07/28/21 23:28 Dose: 20 mg Documented by: Mometasone Furoate/Formoterol Fumar (Formoterol/Mometasone 200-5 Mcg 8.8 Gm Inhaler) 0 puff IH Q8H PRN PRN Reason: Shortness of Breath Last Admin: 07/28/21 23:35 Dose: 2 puff Documented by: - Exam Quality Assessment: Supplemental Oxygen General: Alert, Oriented, Cooperative, No Acute Distress Lungs: Normal Respiratory Effort GI/Abdominal Exam: Soft, No Distention Psy/Mental Status: Alert, Normal Affect - Patient Data Lab Results Last 24 hrs: Laboratory Results - last 24 hr 08/02/21 08/02/21 Range/Units 05:00 05:51 D-Dimer, Quantitative 1783.06 H (0.0-500.0) ng/mL Sodium 133 L (140-148) mmol/L Potassium 4.7 (3.6-5.2) mmol/L Chloride 97 L (100-108) mmol/L Carbon Dioxide 25 (21-32) mmol/L Anion Gap 15.7 H (5.0-14.0) mmol/L BUN 19 H (7-18) mg/dL Creatinine 0.8 (0.8-1.3) mg/dL Est Cr Clr Drug Dosing 111.31 mL/min Estimated GFR (MDRD) > 60 (>60) Glucose 231 H (74-106) mg/dL Calcium 8.3 L (8.5-10.1) mg/dL C-Reactive Protein 2.14 H (0.0-0.3) mg/dL Result Diagrams: 07/31/21 04:30 08/02/21 05:00 Chris Results Last 24 hrs: Microbiology 07/28/21 23:30 Aerobic Blood Culture - Preliminary Blood - Arm, Left NO GROWTH AFTER 4 DAYS Anaerobic Blood Culture - Preliminary NO GROWTH AFTER 4 DAYS 07/28/21 23:15 Aerobic Blood Culture - Preliminary Blood - Arm, Left NO GROWTH AFTER 4 DAYS Anaerobic Blood Culture - Preliminary NO GROWTH AFTER 4 DAYS Sepsis Event Note - Evaluation Sepsis Screening Result: No Definite Risk - Focused Exam Vital Signs: Vital Signs Temp Temp Pulse Pulse Resp BP BP 08/02/21 13:14 08/02/21 11:08 35.6 C L 64 18 120/54 L 08/02/21 09:08 62 123/60 08/02/21 09:07 62 123/60 08/02/21 07:42 35.1 C L 62 17 123/60 08/02/21 07:34 08/02/21 04:00 35.8 C L 61 17 Pulse Ox 08/02/21 13:14 90 L 08/02/21 11:08 92 L 08/02/21 09:08 08/02/21 09:07 08/02/21 07:42 88 L 08/02/21 07:34 93 L 08/02/21 04:00 88 L - Problem List Review Problem List Initiated/Reviewed/Updated: Yes - Plan Plan:: ASSESSMENT AND PLAN - COVID-19 pneumonia-complicated by acute respiratory failure with hypoxia. Onset of symptoms 07/22. He has not been vaccinated. Respiratory status stable to slowly improving. Symptomatically feeling a little better today. Tolerating treatment well. -Repeat labs in the morning -Humidified high flow oxygen -Dexamethasone 6 mg daily, day 6 -Remdesivir x5 days complete -Add baricitinib 4 mg p.o. daily, today is day 3 of 14 -Add antibiotic therapy because of increased hypoxia; IV ceftriaxone and doxycycline (day 3) -Symptomatic management of cough -Isolation precautions Acute hypoxic respiratory failure-still requiring a fair amount of supplemental oxygen but seems to be stable to possibly improving. -Continue to monitor closely -Management as above Essential hypertension-stable so far. -Continue Lisinopril 20 mg po bid -continue Spironolactone 25 mg po daily Cardiovascular disease - history of cardiac stent x 3, CHF, Cardiomegaly, pacemaker,hyperlipidemia. Stable. -Coreg 25 mg po bid -Lipitor 40 mg daily -Eliquis 5 mg po bid -baby asa -cardiac monitoring. Obstructive sleep apnea- home C-pap at night. -continuous pulse ox. -supplemental oxygen Maintenance issues - - DVT prophylaxis - Eliquis 5 mg po bid - GI prophylaxis -PPI - Nutrition -regular Disposition -I would anticipate discharge home after the hospital stay Dung Dey MD
[2021-08-02] MEDS: Dexamethasone 4 MG/ML SDV IVPUSH SCH (15:20)
[2021-08-02] MEDS: cefTRIAXone 1 GM in Sodium Chloride 0.9% 50 ML IV SCH (15:23)
[2021-08-02] MEDS: guaiFENesin/Dextromethorphan 100-10 MG/5 ML Soln 10 ML Cup PO PRN (20:31)
[2021-08-02] MEDS: Temazepam 15 MG Cap PO PRN (20:31)
[2021-08-02] MEDS: LORazepam 2 MG/ML SDV IV PRN (20:31)
[2021-08-02] MEDS: atorvaSTATin 20 MG Tab PO SCH (20:33)
[2021-08-03] MEDS: Doxycycline 100 MG in Sodium Chloride 0.9% 100 ML IV SCH ×2 (04:45→16:23)
[2021-08-03] MEDS: Mometasone Furoate Nasal Spray 17 GM Canister NAS SCH ×2 (08:19→21:00)
[2021-08-03] MEDS: Aspirin 81 MG Tab.EC PO SCH (08:19)
[2021-08-03] MEDS: Carvedilol 12.5 MG Tab PO SCH ×2 (08:19→21:03)
[2021-08-03] MEDS: Apixaban 5 MG Tab PO SCH ×2 (08:19→21:03)
[2021-08-03] MEDS: Spironolactone 25 MG Tab PO SCH (08:19)
[2021-08-03] MEDS: Lisinopril 20 MG Tab PO SCH ×2 (08:20→21:13)
[2021-08-03] MEDS: Sotalol 80 MG Tab PO SCH ×2 (08:20→21:02)
--- NOTE | 2021-08-03 14:38 | PCM.PN ---
- General Info Date of Service: 08/03/21 Subjective Update: No acute events overnight. No significant change in the past 24 hours. Energy and appetite are maybe a little better. Respiratory status stable with no increase or decrease in supplemental oxygen requirement. Still short of breath with activity but seems a little less so. Has been up to the chair a few times. No fevers. Tolerating medications. No nausea or diarrhea. Functional Status: Reports: Pain Controlled, Tolerating Diet - Review of Systems General: Reports: Weakness Pulmonary: Reports: Shortness of Breath - Patient Data Vitals - Most Recent: Last Vital Signs Temp 36.1 C 08/03/21 11:12 Pulse 60 08/03/21 11:12 Resp 16 08/03/21 11:12 BP 117/78 08/03/21 11:12 Pulse Ox 94 L 08/03/21 12:11 Weight - Most Recent: 147.871 kg I&O - Last 24 Hours: Intake & Output 08/02/21 08/03/21 08/03/21 22:59 06:59 14:59 Intake Total 500 1460 200 Output Total 450 800 Balance 50 1460 -600 Chris Results Last 24 Hours: Microbiology 07/28/21 23:30 Aerobic Blood Culture - Final Blood - Arm, Left NO GROWTH AFTER 5 DAYS Anaerobic Blood Culture - Final NO GROWTH AFTER 5 DAYS 07/28/21 23:15 Aerobic Blood Culture - Final Blood - Arm, Left NO GROWTH AFTER 5 DAYS Anaerobic Blood Culture - Final NO GROWTH AFTER 5 DAYS Med Orders - Current: Current Medications Acetaminophen (Acetaminophen 325 Mg Tab) 650 mg PO Q4H PRN PRN Reason: Fever Greater Than 101 Albuterol (Albuterol 8 Gm Inhaler) 8.5 gm INH Q4H PRN PRN Reason: Shortness of Breath Apixaban (Apixaban 5 Mg Tab) 5 mg PO BID [facility] Last Admin: 08/03/21 08:19 Dose: 5 mg Documented by: Aspirin (Aspirin 81 Mg Tab.Ec) 81 mg PO DAILY [facility] Last Admin: 08/03/21 08:19 Dose: 81 mg Documented by: Atorvastatin Calcium (Atorvastatin 20 Mg Tab) 40 mg PO BEDTIME [facility] Last Admin: 08/02/21 20:33 Dose: 40 mg Documented by: Baricitinib (Baricitinib 2 Mg Tab) 4 mg PO DAILY [facility] Stop: 08/13/21 09:01 Last Admin: 08/03/21 08:19 Dose: 4 mg Documented by: Carvedilol (Carvedilol 12.5 Mg Tab) 25 mg PO BID [facility] Last Admin: 08/03/21 08:19 Dose: 25 mg Documented by: Dexamethasone (Dexamethasone 4 Mg/Ml Sdv) 6 mg IVPUSH Q24H [facility] Stop: 08/06/21 16:01 Last Admin: 08/02/21 15:20 Dose: 6 mg Documented by: Guaifenesin/Dextromethorphan (Guaifenesin/Dextromethorphan 100-10 Mg/5 Ml Soln 10 Ml Cup) 10 ml PO Q4H PRN PRN Reason: Cough Last Admin: 08/02/21 20:31 Dose: 10 ml Documented by: Ceftriaxone Sodium 1 gm/ (Sodium Chloride) 50 mls @ 100 mls/hr IV Q24H [facility] Last Admin: 08/02/21 15:23 Dose: 100 mls/hr Documented by: Doxycycline Hyclate 100 mg/ (Sodium Chloride) 100 mls @ 100 mls/hr IV Q12H [facility] Last Admin: 08/03/21 04:45 Dose: 100 mls/hr Documented by: Lisinopril (Lisinopril 20 Mg Tab) 20 mg PO BID [facility] Last Admin: 08/03/21 08:20 Dose: 20 mg Documented by: Lorazepam (Lorazepam 2 Mg/Ml Sdv) 1 mg IV Q6H PRN PRN Reason: Nausea/Vomiting Last Admin: 08/02/21 20:31 Dose: 1 mg Documented by: Mometasone Furoate (Mometasone Furoate Nasal [place] 17 Gm Canister) 0 gm CRISTINA BID [facility] Last Admin: 08/03/21 08:19 Dose: 2 spray Documented by: Mometasone Furoate/Formoterol Fumar (Formoterol/Mometasone 200-5 Mcg 8.8 Gm Inhaler) 0 puff IH Q8H PRN PRN Reason: Shortness of Breath Morphine Sulfate (Morphine 2 Mg/Ml Syringe) 2 mg IVPUSH Q2H PRN PRN Reason: Pain (severe 7-10) Ondansetron HCl (Ondansetron 4 Mg Tab.Dis) 4 mg PO Q6H PRN PRN Reason: Nausea Last Admin: 10/28/21 23:29 Dose: 4 mg Documented by: Oxycodone HCl (Oxycodone 5 Mg Tab) 5 mg PO Q4H PRN PRN Reason: Pain (moderate 4-6) Sodium Chloride (Sodium Chloride 0.9% 10 Ml Syringe) 10 ml FLUSH ASDIRECTED PRN PRN Reason: Keep Vein Open Last Admin: 07/28/21 21:31 Dose: 10 ml Documented by: Sotalol HCl (Sotalol 80 Mg Tab) 80 mg PO BID [facility] Last Admin: 08/03/21 08:20 Dose: 80 mg Documented by: Spironolactone (Spironolactone 25 Mg Tab) 25 mg PO DAILY [facility] Last Admin: 08/03/21 08:19 Dose: 25 mg Documented by: Temazepam (Temazepam 15 Mg Cap) 15 mg PO BEDTIME PRN PRN Reason: Sleep Last Admin: 08/02/21 20:31 Dose: 15 mg Documented by: Discontinued Medications Acetaminophen (Acetaminophen 325 Mg Tab) 650 mg PO Q4H PRN PRN Reason: Fever Greater Than 101 Last Admin: 07/28/21 23:31 Dose: 650 mg Documented by: Dexamethasone (Dexamethasone 4 Mg/Ml Sdv) 6 mg IVPUSH DAILY [facility] Stop: 08/06/21 09:01 Last Admin: 07/28/21 21:29 Dose: 6 mg Documented by: Remdesivir 200 mg/ Sodium (Chloride) 250 mls @ 250 mls/hr IV ONETIME ONE Stop: 07/28/21 20:33 Last Admin: 07/28/21 21:33 Dose: 250 mls/hr Documented by: Remdesivir 100 mg/ Sodium (Chloride) 100 mls @ 100 mls/hr IV Q24H [facility] Stop: 08/01/21 17:59 Last Admin: 08/01/21 17:16 Dose: 100 mls/hr Documented by: Lisinopril (Lisinopril 10 Mg Tab) Confirm Administered Dose 20 mg .ROUTE .STK- MED ONE Stop: 07/28/21 23:19 Last Admin: 07/28/21 23:28 Dose: 20 mg Documented by: Mometasone Furoate/Formoterol Fumar (Formoterol/Mometasone 200-5 Mcg 8.8 Gm Inhaler) 0 puff IH Q8H PRN PRN Reason: Shortness of Breath Last Admin: 07/28/21 23:35 Dose: 2 puff Documented by: - Exam Quality Assessment: Supplemental Oxygen General: Alert, Oriented, Cooperative, No Acute Distress Lungs: Normal Respiratory Effort. No: Wheezing Cardiovascular: Regular Rate, Regular Rhythm GI/Abdominal Exam: Soft, No Distention Extremities: No Pedal Edema. No: Increased Warmth Skin: Warm, Dry Psy/Mental Status: Alert, Normal Affect - Patient Data Result Diagrams: 07/31/21 04:30 08/02/21 05:00 Chris Results Last 24 hrs: Microbiology 07/28/21 23:30 Aerobic Blood Culture - Final Blood - Arm, Left NO GROWTH AFTER 5 DAYS Anaerobic Blood Culture - Final NO GROWTH AFTER 5 DAYS 07/28/21 23:15 Aerobic Blood Culture - Final Blood - Arm, Left NO GROWTH AFTER 5 DAYS Anaerobic Blood Culture - Final NO GROWTH AFTER 5 DAYS Sepsis Event Note - Evaluation Sepsis Screening Result: No Definite Risk - Focused Exam Vital Signs: Vital Signs Temp Pulse Pulse Resp BP BP Pulse Ox 08/03/21 12:11 94 L 08/03/21 11:12 36.1 C 60 16 117/78 92 L 08/03/21 08:20 63 144/70 H 08/03/21 08:19 63 144/70 H 08/03/21 07:34 36.1 C 63 18 144/70 H 92 L 08/03/21 07:23 93 L 08/03/21 04:00 60 92 L - Problem List Review Problem List Initiated/Reviewed/Updated: Yes - My Orders Last 24 Hours: My Active Orders 08/03/21 14:37 Up With Assistance [RC] ASDIRECTED 08/04/21 05:00 C-REACTIVE PROTEIN [CHEM] Timed D-DIMER QUANTITATIVE [COAG] Timed - Plan Plan:: ASSESSMENT AND PLAN - COVID-19 pneumonia-complicated by acute respiratory failure with hypoxia. Onset of symptoms 07/22. He has not been vaccinated. Respiratory status stable to slowly improving. Tolerating medications. -Repeat labs in the morning -Humidified high flow oxygen -Dexamethasone 6 mg daily, day 7 -Remdesivir x5 days complete -Add baricitinib 4 mg p.o. daily (day 4 of 14) -Continue ceftriaxone and doxycycline (day 4 of 7) -Symptomatic management of cough -Isolation precautions Acute hypoxic respiratory failure-still requiring a fair amount of supplemental oxygen but has been stable. I anticipate some improvement over the next couple of days. -Continue to monitor closely -Management as above Essential hypertension-stable so far. -Continue Lisinopril 20 mg po bid -continue Spironolactone 25 mg po daily Cardiovascular disease - history of cardiac stent x 3, CHF, Cardiomegaly, pacemaker,hyperlipidemia. Stable. -Coreg 25 mg po bid -Lipitor 40 mg daily -Eliquis 5 mg po bid -baby asa Obstructive sleep apnea- home C-pap at night. -continuous pulse ox. -supplemental oxygen Maintenance issues - - DVT prophylaxis - Eliquis 5 mg po bid - GI prophylaxis -PPI - Nutrition -regular Disposition -I would anticipate discharge home after the hospital stay Dung Dey MD
[2021-08-03] MEDS: Dexamethasone 4 MG/ML SDV IVPUSH SCH (15:30)
[2021-08-03] MEDS: cefTRIAXone 1 GM in Sodium Chloride 0.9% 50 ML IV SCH (15:31)
[2021-08-03] MEDS: atorvaSTATin 20 MG Tab PO SCH (21:04)
[2021-08-03] MEDS: guaiFENesin/Dextromethorphan 100-10 MG/5 ML Soln 10 ML Cup PO PRN (21:13)
[2021-08-03] MEDS: Temazepam 15 MG Cap PO PRN (21:30)
[2021-08-04] MEDS: Doxycycline 100 MG in Sodium Chloride 0.9% 100 ML IV SCH ×2 (04:19→17:12)
[2021-08-04] MEDS: Sotalol 80 MG Tab PO SCH ×2 (10:09→20:37)
[2021-08-04] MEDS: Spironolactone 25 MG Tab PO SCH (10:09)
[2021-08-04] MEDS: Carvedilol 12.5 MG Tab PO SCH ×2 (10:10→20:37)
[2021-08-04] MEDS: Apixaban 5 MG Tab PO SCH ×2 (10:10→20:37)
[2021-08-04] MEDS: Lisinopril 20 MG Tab PO SCH ×2 (10:11→20:38)
[2021-08-04] MEDS: Mometasone Furoate Nasal Spray 17 GM Canister NAS SCH ×2 (10:11→20:30)
[2021-08-04] MEDS: Aspirin 81 MG Tab.EC PO SCH (10:11)
--- NOTE | 2021-08-04 14:20 | PCM.PN ---
- General Info Date of Service: 08/04/21 Subjective Update: No acute events overnight. Patient feels a little better today with less shortness of breath. Able to tolerate a little bit more activity today. Still not much of an appetite. He does still get short of breath with activity. No nausea or abdominal pain. No fevers. Slowly getting better. Functional Status: Reports: Pain Controlled, Tolerating Diet - Patient Data Vitals - Most Recent: Last Vital Signs Temp 36.2 C 08/04/21 14:00 Pulse 65 08/04/21 14:00 Resp 18 08/04/21 14:00 BP 127/74 08/04/21 14:00 Pulse Ox 95 08/04/21 14:00 Weight - Most Recent: 147.871 kg I&O - Last 24 Hours: Intake & Output 08/03/21 08/04/21 08/04/21 22:59 06:59 14:59 Intake Total 960 100 300 Output Total 725 1200 Balance 235 100 -900 Lab Results Last 24 Hours: Laboratory Results - last 24 hr 08/04/21 08/04/21 Range/Units 04:49 04:49 D-Dimer, Quantitative 2709.61 H (0.0-500.0) ng/mL C-Reactive Protein 0.78 H (0.0-0.3) mg/dL Med Orders - Current: Current Medications Acetaminophen (Acetaminophen 325 Mg Tab) 650 mg PO Q4H PRN PRN Reason: Fever Greater Than 101 Albuterol (Albuterol 8 Gm Inhaler) 8.5 gm INH Q4H PRN PRN Reason: Shortness of Breath Apixaban (Apixaban 5 Mg Tab) 5 mg PO BID [facility] Last Admin: 08/04/21 10:10 Dose: 5 mg Documented by: Aspirin (Aspirin 81 Mg Tab.Ec) 81 mg PO DAILY [facility] Last Admin: 08/04/21 10:11 Dose: 81 mg Documented by: Atorvastatin Calcium (Atorvastatin 20 Mg Tab) 40 mg PO BEDTIME [facility] Last Admin: 08/03/21 21:04 Dose: 40 mg Documented by: Baricitinib (Baricitinib 2 Mg Tab) 4 mg PO DAILY [facility] Stop: 08/13/21 09:01 Last Admin: 08/04/21 10:11 Dose: 4 mg Documented by: Carvedilol (Carvedilol 12.5 Mg Tab) 25 mg PO BID [facility] Last Admin: 08/04/21 10:10 Dose: 25 mg Documented by: Dexamethasone (Dexamethasone 4 Mg/Ml Sdv) 6 mg IVPUSH Q24H [facility] Stop: 08/06/21 16:01 Last Admin: 08/03/21 15:30 Dose: 6 mg Documented by: Guaifenesin/Dextromethorphan (Guaifenesin/Dextromethorphan 100-10 Mg/5 Ml Soln 10 Ml Cup) 10 ml PO Q4H PRN PRN Reason: Cough Last Admin: 08/03/21 21:13 Dose: 10 ml Documented by: Ceftriaxone Sodium 1 gm/ (Sodium Chloride) 50 mls @ 100 mls/hr IV Q24H [facility] Last Admin: 08/03/21 15:31 Dose: 100 mls/hr Documented by: Doxycycline Hyclate 100 mg/ (Sodium Chloride) 100 mls @ 100 mls/hr IV Q12H [facility] Last Admin: 08/04/21 04:19 Dose: 100 mls/hr Documented by: Lisinopril (Lisinopril 20 Mg Tab) 20 mg PO BID [facility] Last Admin: 08/04/21 10:11 Dose: 20 mg Documented by: Lorazepam (Lorazepam 2 Mg/Ml Sdv) 1 mg IV Q6H PRN PRN Reason: Nausea/Vomiting Last Admin: 08/02/21 20:31 Dose: 1 mg Documented by: Mometasone Furoate (Mometasone Furoate Nasal [place] 17 Gm Canister) 0 gm CRISTINA BID [facility] Last Admin: 08/04/21 10:11 Dose: 2 spray Documented by: Mometasone Furoate/Formoterol Fumar (Formoterol/Mometasone 200-5 Mcg 8.8 Gm Inhaler) 0 puff IH Q8H PRN PRN Reason: Shortness of Breath Morphine Sulfate (Morphine 2 Mg/Ml Syringe) 2 mg IVPUSH Q2H PRN PRN Reason: Pain (severe 7-10) Ondansetron HCl (Ondansetron 4 Mg Tab.Dis) 4 mg PO Q6H PRN PRN Reason: Nausea Last Admin: 07/28/21 23:29 Dose: 4 mg Documented by: Oxycodone HCl (Oxycodone 5 Mg Tab) 5 mg PO Q4H PRN PRN Reason: Pain (moderate 4-6) Sodium Chloride (Sodium Chloride 0.9% 10 Ml Syringe) 10 ml FLUSH ASDIRECTED PRN PRN Reason: Keep Vein Open Last Admin: 07/28/21 21:31 Dose: 10 ml Documented by: Sotalol HCl (Sotalol 80 Mg Tab) 80 mg PO BID [facility] Last Admin: 08/04/21 10:09 Dose: 80 mg Documented by: Spironolactone (Spironolactone 25 Mg Tab) 25 mg PO DAILY [facility] Last Admin: 08/04/21 10:09 Dose: 25 mg Documented by: Temazepam (Temazepam 15 Mg Cap) 15 mg PO BEDTIME PRN PRN Reason: Sleep Last Admin: 08/03/21 21:30 Dose: 15 mg Documented by: Discontinued Medications Acetaminophen (Acetaminophen 325 Mg Tab) 650 mg PO Q4H PRN PRN Reason: Fever Greater Than 101 Last Admin: 07/28/21 23:31 Dose: 650 mg Documented by: Dexamethasone (Dexamethasone 4 Mg/Ml Sdv) 6 mg IVPUSH DAILY [facility] Stop: 08/06/21 09:01 Last Admin: 07/28/21 21:29 Dose: 6 mg Documented by: Remdesivir 200 mg/ Sodium (Chloride) 250 mls @ 250 mls/hr IV ONETIME ONE Stop: 07/28/21 20:33 Last Admin: 07/28/21 21:33 Dose: 250 mls/hr Documented by: Remdesivir 100 mg/ Sodium (Chloride) 100 mls @ 100 mls/hr IV Q24H [facility] Stop: 08/01/21 17:59 Last Admin: 08/01/21 17:16 Dose: 100 mls/hr Documented by: Lisinopril (Lisinopril 10 Mg Tab) Confirm Administered Dose 20 mg .ROUTE .STK- MED ONE Stop: 07/28/21 23:19 Last Admin: 07/28/21 23:28 Dose: 20 mg Documented by: Mometasone Furoate/Formoterol Fumar (Formoterol/Mometasone 200-5 Mcg 8.8 Gm Inhaler) 0 puff IH Q8H PRN PRN Reason: Shortness of Breath Last Admin: 07/28/21 23:35 Dose: 2 puff Documented by: - Exam Quality Assessment: Supplemental Oxygen General: Alert, Oriented, Cooperative, No Acute Distress Lungs: Normal Respiratory Effort GI/Abdominal Exam: Soft, No Distention Extremities: No Pedal Edema Psy/Mental Status: Alert, Normal Affect - Patient Data Lab Results Last 24 hrs: Laboratory Results - last 24 hr 08/04/21 08/04/21 Range/Units 04:49 04:49 D-Dimer, Quantitative 2709.61 H (0.0-500.0) ng/mL C-Reactive Protein 0.78 H (0.0-0.3) mg/dL Result Diagrams: 07/31/21 04:30 08/02/21 05:00 Sepsis Event Note - Evaluation Sepsis Screening Result: No Definite Risk - Focused Exam Vital Signs: Vital Signs Temp Pulse Pulse Resp BP BP Pulse Ox 08/04/21 14:00 36.2 C 65 18 127/74 95 08/04/21 12:51 95 08/04/21 10:30 35.7 C L 69 18 113/67 92 L 08/04/21 10:11 153/82 H 08/04/21 10:10 61 153/82 H 08/04/21 10:09 61 153/82 H 08/04/21 07:46 35.7 C L 61 16 153/82 H 93 L 08/04/21 07:12 94 L 08/04/21 04:25 36.2 C 18 138/63 - Problem List Review Problem List Initiated/Reviewed/Updated: Yes - My Orders Last 24 Hours: My Active Orders 08/03/21 14:37 Up With Assistance [RC] ASDIRECTED - Plan Plan:: ASSESSMENT AND PLAN - COVID-19 pneumonia-complicated by acute respiratory failure with hypoxia. Onset of symptoms 07/22. He has not been vaccinated. Respiratory status slowly improving. D-dimer slightly higher today but CRP has improved. Symptomatically looks better. -Repeat labs in the morning -Humidified high flow oxygen -Dexamethasone 6 mg daily, day 8 -Remdesivir x5 days complete -Add baricitinib 4 mg p.o. daily (day 5 of 14) -Continue ceftriaxone and doxycycline (day 5 of 7) -Symptomatic management of cough -Isolation precautions Acute hypoxic respiratory failure-still requiring a fair amount of supplemental oxygen but overall stable and seems to be slowly improving. -Continue to monitor closely -Management as above Essential hypertension-stable so far. -Continue Lisinopril 20 mg po bid -continue Spironolactone 25 mg po daily Cardiovascular disease - history of cardiac stent x 3, CHF, Cardiomegaly, pacemaker,hyperlipidemia. Stable. -Coreg 25 mg po bid -Lipitor 40 mg daily -Eliquis 5 mg po bid -baby asa Obstructive sleep apnea- home C-pap at night. -continuous pulse ox. -supplemental oxygen Maintenance issues - - DVT prophylaxis - Eliquis 5 mg po bid - GI prophylaxis -PPI - Nutrition -regular Disposition -I would anticipate discharge home after the hospital stay Dung Dey MD
[2021-08-04] MEDS: Dexamethasone 4 MG/ML SDV IVPUSH SCH (16:17)
[2021-08-04] MEDS: cefTRIAXone 1 GM in Sodium Chloride 0.9% 50 ML IV SCH (16:19)
[2021-08-04] MEDS: guaiFENesin/Dextromethorphan 100-10 MG/5 ML Soln 10 ML Cup PO PRN (20:36)
[2021-08-04] MEDS: atorvaSTATin 20 MG Tab PO SCH (20:38)
[2021-08-04] MEDS: Temazepam 15 MG Cap PO PRN (21:03)
[2021-08-05] MEDS: Doxycycline 100 MG in Sodium Chloride 0.9% 100 ML IV SCH ×2 (03:17→16:24)
[2021-08-05] MEDS: Lisinopril 20 MG Tab PO SCH ×2 (09:45→21:14)
[2021-08-05] MEDS: Aspirin 81 MG Tab.EC PO SCH (09:45)
[2021-08-05] MEDS: Carvedilol 12.5 MG Tab PO SCH ×2 (09:45→21:14)
[2021-08-05] MEDS: Apixaban 5 MG Tab PO SCH ×2 (09:45→21:14)
[2021-08-05] MEDS: Sotalol 80 MG Tab PO SCH ×2 (09:46→21:13)
[2021-08-05] MEDS: Mometasone Furoate Nasal Spray 17 GM Canister NAS SCH ×2 (09:46→21:14)
[2021-08-05] MEDS: Spironolactone 25 MG Tab PO SCH (09:46)
--- NOTE | 2021-08-05 12:28 | PCM.PN ---
- General Info Date of Service: 08/05/21 Subjective Update: No acute events overnight. Patient reports he feels about the same as yesterday. Appetite does seem to be improving some. Sleeping well. Activity seems to be going better than previous with less dyspnea. They were able to turn down his supplemental oxygen some yesterday and return to down further while we were visiting with him. No fevers. Functional Status: Reports: Pain Controlled, Tolerating Diet - Patient Data Vitals - Most Recent: Last Vital Signs Temp 35.2 C L 08/05/21 07:00 Pulse 75 08/05/21 09:46 Resp 18 08/05/21 07:00 BP 125/57 L 08/05/21 09:46 Pulse Ox 95 08/05/21 07:24 Weight - Most Recent: 147.871 kg I&O - Last 24 Hours: Intake & Output 08/04/21 08/05/21 08/05/21 22:59 06:59 14:59 Intake Total 650 100 300 Output Total 500 850 300 Balance 150 -750 0 Med Orders - Current: Current Medications Acetaminophen (Acetaminophen 325 Mg Tab) 650 mg PO Q4H PRN PRN Reason: Fever Greater Than 101 Albuterol (Albuterol 8 Gm Inhaler) 8.5 gm INH Q4H PRN PRN Reason: Shortness of Breath Apixaban (Apixaban 5 Mg Tab) 5 mg PO BID [facility] Last Admin: 08/05/21 09:45 Dose: 5 mg Documented by: Aspirin (Aspirin 81 Mg Tab.Ec) 81 mg PO DAILY [facility] Last Admin: 08/05/21 09:45 Dose: 81 mg Documented by: Atorvastatin Calcium (Atorvastatin 20 Mg Tab) 40 mg PO BEDTIME [facility] Last Admin: 08/04/21 20:38 Dose: 40 mg Documented by: Baricitinib (Baricitinib 2 Mg Tab) 4 mg PO DAILY [facility] Stop: 08/13/21 09:01 Last Admin: 08/05/21 09:45 Dose: 4 mg Documented by: Carvedilol (Carvedilol 12.5 Mg Tab) 25 mg PO BID [facility] Last Admin: 08/05/21 09:45 Dose: 25 mg Documented by: Dexamethasone (Dexamethasone 4 Mg/Ml Sdv) 6 mg IVPUSH Q24H [facility] Stop: 08/06/21 16:01 Last Admin: 08/04/21 16:17 Dose: 6 mg Documented by: Guaifenesin/Dextromethorphan (Guaifenesin/Dextromethorphan 100-10 Mg/5 Ml Soln 10 Ml Cup) 10 ml PO Q4H PRN PRN Reason: Cough Last Admin: 08/04/21 20:36 Dose: 10 ml Documented by: Ceftriaxone Sodium 1 gm/ (Sodium Chloride) 50 mls @ 100 mls/hr IV Q24H [facility] Last Admin: 08/04/21 16:19 Dose: 100 mls/hr Documented by: Doxycycline Hyclate 100 mg/ (Sodium Chloride) 100 mls @ 100 mls/hr IV Q12H [facility] Last Admin: 08/05/21 03:17 Dose: 100 mls/hr Documented by: Lisinopril (Lisinopril 20 Mg Tab) 20 mg PO BID [facility] Last Admin: 08/05/21 09:45 Dose: 20 mg Documented by: Lorazepam (Lorazepam 2 Mg/Ml Sdv) 1 mg IV Q6H PRN PRN Reason: Nausea/Vomiting Last Admin: 08/02/21 20:31 Dose: 1 mg Documented by: Mometasone Furoate (Mometasone Furoate Nasal [place] 17 Gm Canister) 0 gm CRISTINA BID [facility] Last Admin: 08/05/21 09:46 Dose: 2 spray Documented by: Mometasone Furoate/Formoterol Fumar (Formoterol/Mometasone 200-5 Mcg 8.8 Gm Inhaler) 0 puff IH Q8H PRN PRN Reason: Shortness of Breath Morphine Sulfate (Morphine 2 Mg/Ml Syringe) 2 mg IVPUSH Q2H PRN PRN Reason: Pain (severe 7-10) Ondansetron HCl (Ondansetron 4 Mg Tab.Dis) 4 mg PO Q6H PRN PRN Reason: Nausea Last Admin: 07/28/21 23:29 Dose: 4 mg Documented by: Oxycodone HCl (Oxycodone 5 Mg Tab) 5 mg PO Q4H PRN PRN Reason: Pain (moderate 4-6) Sodium Chloride (Sodium Chloride 0.9% 10 Ml Syringe) 10 ml FLUSH ASDIRECTED PRN PRN Reason: Keep Vein Open Last Admin: 07/28/21 21:31 Dose: 10 ml Documented by: Sotalol HCl (Sotalol 80 Mg Tab) 80 mg PO BID [facility] Last Admin: 08/05/21 09:46 Dose: 80 mg Documented by: Spironolactone (Spironolactone 25 Mg Tab) 25 mg PO DAILY [facility] Last Admin: 08/05/21 09:46 Dose: 25 mg Documented by: Temazepam (Temazepam 15 Mg Cap) 15 mg PO BEDTIME PRN PRN Reason: Sleep Last Admin: 08/04/21 21:03 Dose: 15 mg Documented by: Discontinued Medications Acetaminophen (Acetaminophen 325 Mg Tab) 650 mg PO Q4H PRN PRN Reason: Fever Greater Than 101 Last Admin: 07/28/21 23:31 Dose: 650 mg Documented by: Dexamethasone (Dexamethasone 4 Mg/Ml Sdv) 6 mg IVPUSH DAILY [facility] Stop: 08/06/21 09:01 Last Admin: 07/28/21 21:29 Dose: 6 mg Documented by: Remdesivir 200 mg/ Sodium (Chloride) 250 mls @ 250 mls/hr IV ONETIME ONE Stop: 07/28/21 20:33 Last Admin: 07/28/21 21:33 Dose: 250 mls/hr Documented by: Remdesivir 100 mg/ Sodium (Chloride) 100 mls @ 100 mls/hr IV Q24H [facility] Stop: 08/01/21 17:59 Last Admin: 08/01/21 17:16 Dose: 100 mls/hr Documented by: Lisinopril (Lisinopril 10 Mg Tab) Confirm Administered Dose 20 mg .ROUTE .STK- MED ONE Stop: 07/28/21 23:19 Last Admin: 07/28/21 23:28 Dose: 20 mg Documented by: Mometasone Furoate/Formoterol Fumar (Formoterol/Mometasone 200-5 Mcg 8.8 Gm Inhaler) 0 puff IH Q8H PRN PRN Reason: Shortness of Breath Last Admin: 07/28/21 23:35 Dose: 2 puff Documented by: - Exam Quality Assessment: Supplemental Oxygen General: Alert, Oriented, Cooperative, No Acute Distress Lungs: Normal Respiratory Effort GI/Abdominal Exam: No Distention Skin: Warm, Dry Psy/Mental Status: Alert, Normal Affect - Patient Data Result Diagrams: 07/31/21 04:30 08/02/21 05:00 Sepsis Event Note - Evaluation Sepsis Screening Result: No Definite Risk - Focused Exam Vital Signs: Vital Signs Temp Pulse Pulse Resp BP BP Pulse Ox 08/05/21 09:46 75 125/57 L 08/05/21 09:45 72 125/57 L 08/05/21 07:24 95 08/05/21 07:00 35.2 C L 63 18 115/74 96 08/05/21 03:18 60 18 149/75 H 94 L 08/05/21 00:40 94 L - Problem List Review Problem List Initiated/Reviewed/Updated: Yes - My Orders Last 24 Hours: My Active Orders 08/06/21 05:00 BASIC METABOLIC PANEL,BMP [CHEM] Timed CRP [C-REACTIVE PROTEIN] [CHEM] Timed D-DIMER QUANTITATIVE [COAG] Timed - Plan Plan:: ASSESSMENT AND PLAN - COVID-19 pneumonia-complicated by acute respiratory failure with hypoxia. Onset of symptoms 07/22. He has not been vaccinated. Respiratory status slowly improving and we have been able to wean the supplemental oxygen slightly. -Repeat labs in the morning -Humidified high flow oxygen -Dexamethasone 6 mg daily, day 9 -Remdesivir x5 days complete -Add baricitinib 4 mg p.o. daily (day 6 of 14) -Continue ceftriaxone and doxycycline (day 6 of 7) -Symptomatic management of cough -Isolation precautions Acute hypoxic respiratory failure-still requiring a fair amount of supplemental oxygen but overall stable and seems to be slowly improving. -Continue to monitor closely -Management as above Essential hypertension-stable so far. -Continue Lisinopril 20 mg po bid -continue Spironolactone 25 mg po daily Cardiovascular disease - history of cardiac stent x 3, CHF, Cardiomegaly, pacemaker,hyperlipidemia. Stable. -Coreg 25 mg po bid -Lipitor 40 mg daily -Eliquis 5 mg po bid -baby asa Obstructive sleep apnea- home C-pap at night. -continuous pulse ox. -supplemental oxygen Maintenance issues - - DVT prophylaxis - Eliquis 5 mg po bid - GI prophylaxis -PPI - Nutrition -regular Disposition -I would anticipate discharge home after the hospital stay Dung Dey MD
--- NOTE | 2021-08-05 13:30 | PCM.PN ---
<Sadaf Crane - Last Filed: 08/05/21 13:25> - General Info Date of Service: 08/05/21 Subjective Update: Patient reports he is feeling better every day. He has been up in the chair and trying to move around the room as much as possible. Appetite has returned and was able to eat breakfast this morning with good tolerance. He reports sleeping well with no acute events overnight. He continues to have a cough but is using the cough suppressive medications that are ordered. Denies sputum or hemoptysis. No fevers, chills, nausea, or vomiting. Functional Status: Reports: Pain Controlled, Tolerating Diet, Ambulating, Urinating - Review of Systems General: Reports: Appetite. Denies: Fever Pulmonary: Reports: Shortness of Breath, Cough. Denies: Hemoptysis, Wheezing Cardiovascular: Denies: Chest Pain, Palpitations Gastrointestinal: Denies: Abdominal Pain, Constipation, Diarrhea, Nausea, Vomiting - Patient Data Vitals - Most Recent: Last Vital Signs Temp 95.4 F L 08/05/21 07:00 Pulse 75 08/05/21 09:46 Resp 18 08/05/21 07:00 BP 125/57 L 08/05/21 09:46 Pulse Ox 93 L 08/05/21 13:00 Weight - Most Recent: 147.871 kg I&O - Last 24 Hours: Intake & Output 08/04/21 08/05/21 08/05/21 22:59 06:59 14:59 Intake Total 650 100 300 Output Total 500 850 300 Balance 150 -750 0 Med Orders - Current: Current Medications Acetaminophen (Acetaminophen 325 Mg Tab) 650 mg PO Q4H PRN PRN Reason: Fever Greater Than 101 Albuterol (Albuterol 8 Gm Inhaler) 8.5 gm INH Q4H PRN PRN Reason: Shortness of Breath Apixaban (Apixaban 5 Mg Tab) 5 mg PO BID [facility] Last Admin: 08/05/21 09:45 Dose: 5 mg Documented by: Aspirin (Aspirin 81 Mg Tab.Ec) 81 mg PO DAILY [facility] Last Admin: 08/05/21 09:45 Dose: 81 mg Documented by: Atorvastatin Calcium (Atorvastatin 20 Mg Tab) 40 mg PO BEDTIME [facility] Last Admin: 08/04/21 20:38 Dose: 40 mg Documented by: Baricitinib (Baricitinib 2 Mg Tab) 4 mg PO DAILY [facility] Stop: 08/13/21 09:01 Last Admin: 08/05/21 09:45 Dose: 4 mg Documented by: Carvedilol (Carvedilol 12.5 Mg Tab) 25 mg PO BID [facility] Last Admin: 08/05/21 09:45 Dose: 25 mg Documented by: Dexamethasone (Dexamethasone 4 Mg/Ml Sdv) 6 mg IVPUSH Q24H [facility] Stop: 08/06/21 16:01 Last Admin: 08/04/21 16:17 Dose: 6 mg Documented by: Guaifenesin/Dextromethorphan (Guaifenesin/Dextromethorphan 100-10 Mg/5 Ml Soln 10 Ml Cup) 10 ml PO Q4H PRN PRN Reason: Cough Last Admin: 08/04/21 20:36 Dose: 10 ml Documented by: Ceftriaxone Sodium 1 gm/ (Sodium Chloride) 50 mls @ 100 mls/hr IV Q24H [facility] Last Admin: 08/04/21 16:19 Dose: 100 mls/hr Documented by: Doxycycline Hyclate 100 mg/ (Sodium Chloride) 100 mls @ 100 mls/hr IV Q12H [facility] Last Admin: 08/05/21 03:17 Dose: 100 mls/hr Documented by: Lisinopril (Lisinopril 20 Mg Tab) 20 mg PO BID [facility] Last Admin: 08/05/21 09:45 Dose: 20 mg Documented by: Lorazepam (Lorazepam 2 Mg/Ml Sdv) 1 mg IV Q6H PRN PRN Reason: Nausea/Vomiting Last Admin: 08/02/21 20:31 Dose: 1 mg Documented by: Mometasone Furoate (Mometasone Furoate Nasal [place] 17 Gm Canister) 0 gm CRISTINA BID [facility] Last Admin: 08/05/21 09:46 Dose: 2 spray Documented by: Mometasone Furoate/Formoterol Fumar (Formoterol/Mometasone 200-5 Mcg 8.8 Gm Inhaler) 0 puff IH Q8H PRN PRN Reason: Shortness of Breath Morphine Sulfate (Morphine 2 Mg/Ml Syringe) 2 mg IVPUSH Q2H PRN PRN Reason: Pain (severe 7-10) Ondansetron HCl (Ondansetron 4 Mg Tab.Dis) 4 mg PO Q6H PRN PRN Reason: Nausea Last Admin: 07/28/21 23:29 Dose: 4 mg Documented by: Oxycodone HCl (Oxycodone 5 Mg Tab) 5 mg PO Q4H PRN PRN Reason: Pain (moderate 4-6) Sodium Chloride (Sodium Chloride 0.9% 10 Ml Syringe) 10 ml FLUSH ASDIRECTED PRN PRN Reason: Keep Vein Open Last Admin: 07/28/21 21:31 Dose: 10 ml Documented by: Sotalol HCl (Sotalol 80 Mg Tab) 80 mg PO BID [facility] Last Admin: 08/05/21 09:46 Dose: 80 mg Documented by: Spironolactone (Spironolactone 25 Mg Tab) 25 mg PO DAILY [facility] Last Admin: 08/05/21 09:46 Dose: 25 mg Documented by: Temazepam (Temazepam 15 Mg Cap) 15 mg PO BEDTIME PRN PRN Reason: Sleep Last Admin: 08/04/21 21:03 Dose: 15 mg Documented by: Discontinued Medications Acetaminophen (Acetaminophen 325 Mg Tab) 650 mg PO Q4H PRN PRN Reason: Fever Greater Than 101 Last Admin: 07/28/21 23:31 Dose: 650 mg Documented by: Dexamethasone (Dexamethasone 4 Mg/Ml Sdv) 6 mg IVPUSH DAILY [facility] Stop: 08/06/21 09:01 Last Admin: 07/28/21 21:29 Dose: 6 mg Documented by: Remdesivir 200 mg/ Sodium (Chloride) 250 mls @ 250 mls/hr IV ONETIME ONE Stop: 07/28/21 20:33 Last Admin: 07/28/21 21:33 Dose: 250 mls/hr Documented by: Remdesivir 100 mg/ Sodium (Chloride) 100 mls @ 100 mls/hr IV Q24H [facility] Stop: 08/01/21 17:59 Last Admin: 08/01/21 17:16 Dose: 100 mls/hr Documented by: Lisinopril (Lisinopril 10 Mg Tab) Confirm Administered Dose 20 mg .ROUTE .STK- MED ONE Stop: 07/28/21 23:19 Last Admin: 07/28/21 23:28 Dose: 20 mg Documented by: Mometasone Furoate/Formoterol Fumar (Formoterol/Mometasone 200-5 Mcg 8.8 Gm Inhaler) 0 puff IH Q8H PRN PRN Reason: Shortness of Breath Last Admin: 07/28/21 23:35 Dose: 2 puff Documented by: - Exam Quality Assessment: Supplemental Oxygen General: Alert, Oriented, Cooperative, No Acute Distress Lungs: Normal Respiratory Effort Cardiovascular: Regular Rate, Regular Rhythm Skin: Warm, Dry, Intact - Patient Data Result Diagrams: 07/31/21 04:30 08/02/21 05:00 Sepsis Event Note - Evaluation Sepsis Screening Result: No Definite Risk - Focused Exam Vital Signs: Vital Signs Temp Pulse Pulse Resp BP BP Pulse Ox 08/05/21 13:00 93 L 08/05/21 09:46 75 125/57 L 08/05/21 09:45 72 125/57 L 08/05/21 07:24 95 08/05/21 07:00 95.4 F L 63 18 115/74 96 08/05/21 03:18 60 18 149/75 H 94 L - Plan Plan:: ASSESSMENT AND PLAN - COVID-19 pneumonia-complicated by acute respiratory failure with hypoxia. Onset of symptoms 07/22. He has not been vaccinated. Respiratory status slowly improving. -Repeat labs in the morning including inflammatory markers. -Humidified high flow oxygen -Dexamethasone 6 mg daily, day 9 -Remdesivir x6 days complete -Add baricitinib 4 mg p.o. daily (day 6 of 14) -Continue ceftriaxone and doxycycline (day 6 of 7) -Symptomatic management of cough -Isolation precautions Acute hypoxic respiratory failure- O2 saturation has maintained in the mid 90s. Trial of supplemental oxygen titration, will continue to monitor for tolerance. -Continue to monitor closely -Management as above Essential hypertension-stable at 125/57. -Continue Lisinopril 20 mg po bid -continue Spironolactone 25 mg po daily Cardiovascular disease - history of cardiac stent x 3, CHF, Cardiomegaly, pacemaker,hyperlipidemia. Stable. -Coreg 25 mg po bid -Lipitor 40 mg daily -Eliquis 5 mg po bid -baby asa Obstructive sleep apnea- home C-pap at night. -continuous pulse ox. -supplemental oxygen Maintenance issues - - DVT prophylaxis - Eliquis 5 mg po bid - GI prophylaxis -PPI - Nutrition -regular Disposition -I would anticipate discharge home after the hospital stay [facility] <Dung Dey - Last Filed: 08/05/21 14:41> - General Info Functional Status: Reports: Pain Controlled - Patient Data Vitals - Most Recent: Last Vital Signs Temp 35.7 C L 08/05/21 13:52 Pulse 61 08/05/21 13:52 Resp 18 08/05/21 13:52 BP 139/82 08/05/21 13:52 Pulse Ox 94 L 08/05/21 13:52 I&O - Last 24 Hours: Intake & Output 08/04/21 08/05/21 08/05/21 22:59 06:59 14:59 Intake Total 650 100 300 Output Total 500 850 600 Balance 150 -750 -300 Med Orders - Current: Current Medications Acetaminophen (Acetaminophen 325 Mg Tab) 650 mg PO Q4H PRN PRN Reason: Fever Greater Than 101 Albuterol (Albuterol 8 Gm Inhaler) 8.5 gm INH Q4H PRN PRN Reason: Shortness of Breath Apixaban (Apixaban 5 Mg Tab) 5 mg PO BID [facility] Last Admin: 08/05/21 09:45 Dose: 5 mg Documented by: Aspirin (Aspirin 81 Mg Tab.Ec) 81 mg PO DAILY [facility] Last Admin: 08/05/21 09:45 Dose: 81 mg Documented by: Atorvastatin Calcium (Atorvastatin 20 Mg Tab) 40 mg PO BEDTIME [facility] Last Admin: 08/04/21 20:38 Dose: 40 mg Documented by: Baricitinib (Baricitinib 2 Mg Tab) 4 mg PO DAILY [facility] Stop: 08/13/21 09:01 Last Admin: 08/05/21 09:45 Dose: 4 mg Documented by: Carvedilol (Carvedilol 12.5 Mg Tab) 25 mg PO BID [facility] Last Admin: 08/05/21 09:45 Dose: 25 mg Documented by: Dexamethasone (Dexamethasone 4 Mg/Ml Sdv) 6 mg IVPUSH Q24H [facility] Stop: 08/06/21 16:01 Last Admin: 08/04/21 16:17 Dose: 6 mg Documented by: Guaifenesin/Dextromethorphan (Guaifenesin/Dextromethorphan 100-10 Mg/5 Ml Soln 10 Ml Cup) 10 ml PO Q4H PRN PRN Reason: Cough Last Admin: 08/04/21 20:36 Dose: 10 ml Documented by: Ceftriaxone Sodium 1 gm/ (Sodium Chloride) 50 mls @ 100 mls/hr IV Q24H [facility] Last Admin: 08/04/21 16:19 Dose: 100 mls/hr Documented by: Doxycycline Hyclate 100 mg/ (Sodium Chloride) 100 mls @ 100 mls/hr IV Q12H [facility] Last Admin: 08/05/21 03:17 Dose: 100 mls/hr Documented by: Lisinopril (Lisinopril 20 Mg Tab) 20 mg PO BID [facility] Last Admin: 08/05/21 09:45 Dose: 20 mg Documented by: Lorazepam (Lorazepam 2 Mg/Ml Sdv) 1 mg IV Q6H PRN PRN Reason: Nausea/Vomiting Last Admin: 08/02/21 20:31 Dose: 1 mg Documented by: Mometasone Furoate (Mometasone Furoate Nasal [place] 17 Gm Canister) 0 gm CRISTINA BID [facility] Last Admin: 08/05/21 09:46 Dose: 2 spray Documented by: Mometasone Furoate/Formoterol Fumar (Formoterol/Mometasone 200-5 Mcg 8.8 Gm Inhaler) 0 puff IH Q8H PRN PRN Reason: Shortness of Breath Morphine Sulfate (Morphine 2 Mg/Ml Syringe) 2 mg IVPUSH Q2H PRN PRN Reason: Pain (severe 7-10) Ondansetron HCl (Ondansetron 4 Mg Tab.Dis) 4 mg PO Q6H PRN PRN Reason: Nausea Last Admin: 07/28/21 23:29 Dose: 4 mg Documented by: Oxycodone HCl (Oxycodone 5 Mg Tab) 5 mg PO Q4H PRN PRN Reason: Pain (moderate 4-6) Sodium Chloride (Sodium Chloride 0.9% 10 Ml Syringe) 10 ml FLUSH ASDIRECTED PRN PRN Reason: Keep Vein Open Last Admin: 07/28/21 21:31 Dose: 10 ml Documented by: Sotalol HCl (Sotalol 80 Mg Tab) 80 mg PO BID [facility] Last Admin: 08/05/21 09:46 Dose: 80 mg Documented by: Spironolactone (Spironolactone 25 Mg Tab) 25 mg PO DAILY [facility] Last Admin: 08/05/21 09:46 Dose: 25 mg Documented by: Temazepam (Temazepam 15 Mg Cap) 15 mg PO BEDTIME PRN PRN Reason: Sleep Last Admin: 08/04/21 21:03 Dose: 15 mg Documented by: Discontinued Medications Acetaminophen (Acetaminophen 325 Mg Tab) 650 mg PO Q4H PRN PRN Reason: Fever Greater Than 101 Last Admin: 07/28/21 23:31 Dose: 650 mg Documented by: Dexamethasone (Dexamethasone 4 Mg/Ml Sdv) 6 mg IVPUSH DAILY [facility] Stop: 08/06/21 09:01 Last Admin: 07/28/21 21:29 Dose: 6 mg Documented by: Remdesivir 200 mg/ Sodium (Chloride) 250 mls @ 250 mls/hr IV ONETIME ONE Stop: 07/28/21 20:33 Last Admin: 07/28/21 21:33 Dose: 250 mls/hr Documented by: Remdesivir 100 mg/ Sodium (Chloride) 100 mls @ 100 mls/hr IV Q24H [facility] Stop: 08/01/21 17:59 Last Admin: 08/01/21 17:16 Dose: 100 mls/hr Documented by: Lisinopril (Lisinopril 10 Mg Tab) Confirm Administered Dose 20 mg .ROUTE .STK- MED ONE Stop: 07/28/21 23:19 Last Admin: 07/28/21 23:28 Dose: 20 mg Documented by: Mometasone Furoate/Formoterol Fumar (Formoterol/Mometasone 200-5 Mcg 8.8 Gm Inhaler) 0 puff IH Q8H PRN PRN Reason: Shortness of Breath Last Admin: 07/28/21 23:35 Dose: 2 puff Documented by: - Exam Quality Assessment: Supplemental Oxygen General: Alert, Oriented, Cooperative, No Acute Distress Lungs: Normal Respiratory Effort Cardiovascular: Regular Rate, Regular Rhythm Extremities: No Pedal Edema Psy/Mental Status: Alert, Normal Affect - Patient Data Result Diagrams: 07/31/21 04:30 08/02/21 05:00 Sepsis Event Note - Focused Exam Vital Signs: Vital Signs Temp Pulse Pulse Resp BP BP Pulse Ox 08/05/21 13:52 35.7 C L 61 18 139/82 94 L 08/05/21 13:00 93 L 08/05/21 09:46 75 125/57 L 08/05/21 09:45 72 125/57 L 08/05/21 07:24 95 08/05/21 07:00 35.2 C L 63 18 115/74 96 08/05/21 03:18 60 18 149/75 H 94 L - Problem List Review Problem List Initiated/Reviewed/Updated: Yes - My Orders Last 24 Hours: My Active Orders 08/06/21 05:00 BASIC METABOLIC PANEL,BMP [CHEM] Timed CRP [C-REACTIVE PROTEIN] [CHEM] Timed D-DIMER QUANTITATIVE [COAG] Timed - Plan Plan:: I agree with the information and documentation as above. Dung Dey MD
[2021-08-05] MEDS: cefTRIAXone 1 GM in Sodium Chloride 0.9% 50 ML IV SCH (15:07)
[2021-08-05] MEDS: Dexamethasone 4 MG/ML SDV IVPUSH SCH (16:24)
[2021-08-05] MEDS: atorvaSTATin 20 MG Tab PO SCH (21:14)
[2021-08-05] MEDS: Temazepam 15 MG Cap PO PRN (23:35)
[2021-08-05] MEDS: guaiFENesin/Dextromethorphan 100-10 MG/5 ML Soln 10 ML Cup PO PRN (23:35)
[2021-08-06] MEDS: Doxycycline 100 MG in Sodium Chloride 0.9% 100 ML IV SCH ×2 (04:12→15:44)
[2021-08-06] MEDS: Carvedilol 12.5 MG Tab PO SCH ×2 (09:00→20:42)
[2021-08-06] MEDS: Sotalol 80 MG Tab PO SCH ×2 (09:00→20:41)
[2021-08-06] MEDS: Lisinopril 20 MG Tab PO SCH ×2 (09:01→20:42)
[2021-08-06] MEDS: Aspirin 81 MG Tab.EC PO SCH (09:01)
[2021-08-06] MEDS: Spironolactone 25 MG Tab PO SCH (09:01)
[2021-08-06] MEDS: Apixaban 5 MG Tab PO SCH ×2 (09:01→20:42)
[2021-08-06] MEDS: Mometasone Furoate Nasal Spray 17 GM Canister NAS SCH ×2 (09:02→20:42)
--- NOTE | 2021-08-06 12:27 | PCM.PN ---
- General Info Date of Service: 08/06/21 Subjective Update: There were no acute events overnight. Patient is feeling better today. He feels less short of breath. We were able to transition him to high flow nasal cannula without incident today. CRP and D-dimer are improving. Appetite is better. Functional Status: Reports: Pain Controlled, Tolerating Diet - Patient Data Vitals - Most Recent: Last Vital Signs Temp 35.5 C L 08/06/21 08:00 Pulse 70 08/06/21 09:00 Resp 18 08/06/21 08:00 BP 115/66 08/06/21 09:01 Pulse Ox 92 L 08/06/21 08:00 Weight - Most Recent: 147.871 kg I&O - Last 24 Hours: Intake & Output 08/05/21 08/06/21 08/06/21 22:59 06:59 14:59 Intake Total 1550 100 Output Total 1225 500 Balance 1550 -1125 -500 Lab Results Last 24 Hours: Laboratory Results - last 24 hr 08/06/21 08/06/21 Range/Units 04:15 04:15 D-Dimer, Quantitative 1919.92 H (0.0-500.0) ng/mL Sodium 132 L (140-148) mmol/L Potassium 4.6 (3.6-5.2) mmol/L Chloride 97 L (100-108) mmol/L Carbon Dioxide 27 (21-32) mmol/L Anion Gap 12.6 (5.0-14.0) mmol/L BUN 25 H (7-18) mg/dL Creatinine 0.9 (0.8-1.3) mg/dL Est Cr Clr Drug Dosing 98.94 mL/min Estimated GFR (MDRD) > 60 (>60) Glucose 214 H (74-106) mg/dL Calcium 8.5 (8.5-10.1) mg/dL C-Reactive Protein 0.25 (0.0-0.3) mg/dL Med Orders - Current: Current Medications Acetaminophen (Acetaminophen 325 Mg Tab) 650 mg PO Q4H PRN PRN Reason: Fever Greater Than 101 Albuterol (Albuterol 8 Gm Inhaler) 8.5 gm INH Q4H PRN PRN Reason: Shortness of Breath Apixaban (Apixaban 5 Mg Tab) 5 mg PO BID [facility] Last Admin: 08/06/21 09:01 Dose: 5 mg Documented by: Aspirin (Aspirin 81 Mg Tab.Ec) 81 mg PO DAILY [facility] Last Admin: 08/06/21 09:01 Dose: 81 mg Documented by: Atorvastatin Calcium (Atorvastatin 20 Mg Tab) 40 mg PO BEDTIME [facility] Last Admin: 08/05/21 21:14 Dose: 40 mg Documented by: Baricitinib (Baricitinib 2 Mg Tab) 4 mg PO DAILY [facility] Stop: 08/13/21 09:01 Last Admin: 08/06/21 09:01 Dose: 4 mg Documented by: Carvedilol (Carvedilol 12.5 Mg Tab) 25 mg PO BID [facility] Last Admin: 08/06/21 09:00 Dose: 25 mg Documented by: Dexamethasone (Dexamethasone 4 Mg/Ml Sdv) 6 mg IVPUSH Q24H [facility] Stop: 08/06/21 16:01 Last Admin: 08/05/21 16:24 Dose: 6 mg Documented by: Guaifenesin/Dextromethorphan (Guaifenesin/Dextromethorphan 100-10 Mg/5 Ml Soln 10 Ml Cup) 10 ml PO Q4H PRN PRN Reason: Cough Last Admin: 08/05/21 23:35 Dose: 10 ml Documented by: Ceftriaxone Sodium 1 gm/ (Sodium Chloride) 50 mls @ 100 mls/hr IV Q24H [facility] Last Admin: 08/05/21 15:07 Dose: 100 mls/hr Documented by: Doxycycline Hyclate 100 mg/ (Sodium Chloride) 100 mls @ 100 mls/hr IV Q12H [facility] Last Admin: 08/06/21 04:12 Dose: 100 mls/hr Documented by: Lisinopril (Lisinopril 20 Mg Tab) 20 mg PO BID [facility] Last Admin: 08/06/21 09:01 Dose: 20 mg Documented by: Lorazepam (Lorazepam 2 Mg/Ml Sdv) 1 mg IV Q6H PRN PRN Reason: Nausea/Vomiting Last Admin: 08/02/21 20:31 Dose: 1 mg Documented by: Mometasone Furoate (Mometasone Furoate Nasal [place] 17 Gm Canister) 0 gm CRISTINA BID [facility] Last Admin: 08/06/21 09:02 Dose: 2 spray Documented by: Mometasone Furoate/Formoterol Fumar (Formoterol/Mometasone 200-5 Mcg 8.8 Gm Inhaler) 0 puff IH Q8H PRN PRN Reason: Shortness of Breath Morphine Sulfate (Morphine 2 Mg/Ml Syringe) 2 mg IVPUSH Q2H PRN PRN Reason: Pain (severe 7-10) Ondansetron HCl (Ondansetron 4 Mg Tab.Dis) 4 mg PO Q6H PRN PRN Reason: Nausea Last Admin: 07/28/21 23:29 Dose: 4 mg Documented by: Oxycodone HCl (Oxycodone 5 Mg Tab) 5 mg PO Q4H PRN PRN Reason: Pain (moderate 4-6) Sodium Chloride (Sodium Chloride 0.9% 10 Ml Syringe) 10 ml FLUSH ASDIRECTED PRN PRN Reason: Keep Vein Open Last Admin: 07/28/21 21:31 Dose: 10 ml Documented by: Sotalol HCl (Sotalol 80 Mg Tab) 80 mg PO BID [facility] Last Admin: 08/06/21 09:00 Dose: 80 mg Documented by: Spironolactone (Spironolactone 25 Mg Tab) 25 mg PO DAILY [facility] Last Admin: 08/06/21 09:01 Dose: 25 mg Documented by: Temazepam (Temazepam 15 Mg Cap) 15 mg PO BEDTIME PRN PRN Reason: Sleep Last Admin: 08/05/21 23:35 Dose: 15 mg Documented by: Discontinued Medications Acetaminophen (Acetaminophen 325 Mg Tab) 650 mg PO Q4H PRN PRN Reason: Fever Greater Than 101 Last Admin: 07/28/21 23:31 Dose: 650 mg Documented by: Dexamethasone (Dexamethasone 4 Mg/Ml Sdv) 6 mg IVPUSH DAILY [facility] Stop: 08/06/21 09:01 Last Admin: 07/28/21 21:29 Dose: 6 mg Documented by: Remdesivir 200 mg/ Sodium (Chloride) 250 mls @ 250 mls/hr IV ONETIME ONE Stop: 07/28/21 20:33 Last Admin: 07/28/21 21:33 Dose: 250 mls/hr Documented by: Remdesivir 100 mg/ Sodium (Chloride) 100 mls @ 100 mls/hr IV Q24H [facility] Stop: 08/01/21 17:59 Last Admin: 08/01/21 17:16 Dose: 100 mls/hr Documented by: Lisinopril (Lisinopril 10 Mg Tab) Confirm Administered Dose 20 mg .ROUTE .STK- MED ONE Stop: 07/28/21 23:19 Last Admin: 07/28/21 23:28 Dose: 20 mg Documented by: Mometasone Furoate/Formoterol Fumar (Formoterol/Mometasone 200-5 Mcg 8.8 Gm Inhaler) 0 puff IH Q8H PRN PRN Reason: Shortness of Breath Last Admin: 07/28/21 23:35 Dose: 2 puff Documented by: - Exam Quality Assessment: Supplemental Oxygen General: Alert, Oriented, Cooperative, No Acute Distress Lungs: Normal Respiratory Effort. No: Wheezing GI/Abdominal Exam: Soft, No Distention Skin: Warm, Dry Psy/Mental Status: Alert, Normal Affect - Patient Data Lab Results Last 24 hrs: Laboratory Results - last 24 hr 08/06/21 08/06/21 Range/Units 04:15 04:15 D-Dimer, Quantitative 1919.92 H (0.0-500.0) ng/mL Sodium 132 L (140-148) mmol/L Potassium 4.6 (3.6-5.2) mmol/L Chloride 97 L (100-108) mmol/L Carbon Dioxide 27 (21-32) mmol/L Anion Gap 12.6 (5.0-14.0) mmol/L BUN 25 H (7-18) mg/dL Creatinine 0.9 (0.8-1.3) mg/dL Est Cr Clr Drug Dosing 98.94 mL/min Estimated GFR (MDRD) > 60 (>60) Glucose 214 H (74-106) mg/dL Calcium 8.5 (8.5-10.1) mg/dL C-Reactive Protein 0.25 (0.0-0.3) mg/dL Result Diagrams: 07/31/21 04:30 08/06/21 04:15 Sepsis Event Note - Evaluation Sepsis Screening Result: No Definite Risk - Focused Exam Vital Signs: Vital Signs Temp Pulse Pulse Resp BP BP Pulse Ox 08/06/21 09:01 115/66 08/06/21 09:00 70 115/66 08/06/21 08:00 35.5 C L 61 18 115/66 92 L 08/06/21 07:44 97 08/06/21 04:00 35.5 C L 61 18 133/59 L 92 L 08/06/21 01:20 95 - Problem List Review Problem List Initiated/Reviewed/Updated: Yes - Plan Plan:: ASSESSMENT AND PLAN - COVID-19 pneumonia-complicated by acute respiratory failure with hypoxia. Onset of symptoms 07/22. He has not been vaccinated. Respiratory status steadily improving. Now down to high flow nasal cannula. -Repeat labs in the morning -Humidified high flow oxygen -Dexamethasone 6 mg daily, day 10, starting taper tomorrow -Remdesivir x5 days complete -Add baricitinib 4 mg p.o. daily (day 7 of 14) -Continue ceftriaxone and doxycycline (day 7 of ) -Symptomatic management of cough -Isolation precautions Acute hypoxic respiratory failure-still requiring a fair amount of supplemental oxygen but overall stable and seems to be slowly improving. -Continue to monitor closely -Management as above Essential hypertension-stable so far. -Continue Lisinopril 20 mg po bid -continue Spironolactone 25 mg po daily Cardiovascular disease - history of cardiac stent x 3, CHF, Cardiomegaly, pacemaker,hyperlipidemia. Stable. -Coreg 25 mg po bid -Lipitor 40 mg daily -Eliquis 5 mg po bid -baby asa Obstructive sleep apnea- home C-pap at night. -continuous pulse ox. -supplemental oxygen Maintenance issues - - DVT prophylaxis - Eliquis 5 mg po bid - GI prophylaxis -PPI - Nutrition -regular Disposition -I would anticipate discharge home after the hospital stay Dung Dey MD
[2021-08-06] MEDS: cefTRIAXone 1 GM in Sodium Chloride 0.9% 50 ML IV SCH (15:04)
[2021-08-06] MEDS: Dexamethasone 4 MG/ML SDV IVPUSH SCH (15:05)
[2021-08-06] MEDS: atorvaSTATin 20 MG Tab PO SCH (20:42)
[2021-08-06] MEDS: Temazepam 15 MG Cap PO PRN (22:58)
[2021-08-06] MEDS: guaiFENesin/Dextromethorphan 100-10 MG/5 ML Soln 10 ML Cup PO PRN (22:58)
[2021-08-07] MEDS: Doxycycline 100 MG in Sodium Chloride 0.9% 100 ML IV SCH (04:09)
[2021-08-07] MEDS: Apixaban 5 MG Tab PO SCH ×2 (08:57→20:22)
[2021-08-07] MEDS: Spironolactone 25 MG Tab PO SCH (08:57)
[2021-08-07] MEDS: Sotalol 80 MG Tab PO SCH ×2 (08:57→20:22)
[2021-08-07] MEDS: Carvedilol 12.5 MG Tab PO SCH ×2 (08:57→20:22)
[2021-08-07] MEDS: Dexamethasone 2 MG Tab PO SCH (08:57)
[2021-08-07] MEDS: Lisinopril 20 MG Tab PO SCH ×2 (08:58→20:21)
[2021-08-07] MEDS: Mometasone Furoate Nasal Spray 17 GM Canister NAS SCH ×2 (08:58→20:20)
[2021-08-07] MEDS: Aspirin 81 MG Tab.EC PO SCH (08:58)
--- NOTE | 2021-08-07 12:15 | PCM.PN ---
- General Info Date of Service: 08/07/21 Subjective Update: No acute events overnight. We have been able to wean his oxygen down to 8 L. He continues to feel well and get stronger each day. He does feel weak. No fevers. Steadily improving and starting to get anxious to get home. Functional Status: Reports: Tolerating Diet - Review of Systems General: Reports: Weakness - Patient Data Vitals - Most Recent: Last Vital Signs Temp 35.5 C L 08/07/21 10:39 Pulse 63 08/07/21 10:39 Resp 18 08/07/21 10:39 BP 112/75 08/07/21 10:39 Pulse Ox 94 L 08/07/21 10:39 Weight - Most Recent: 147.871 kg I&O - Last 24 Hours: Intake & Output 08/06/21 08/07/21 08/07/21 23:59 06:59 14:59 Intake Total 100 Output Total Balance 100 Med Orders - Current: Current Medications Acetaminophen (Acetaminophen 325 Mg Tab) 650 mg PO Q4H PRN PRN Reason: Fever Greater Than 101 Albuterol (Albuterol 8 Gm Inhaler) 8.5 gm INH Q4H PRN PRN Reason: Shortness of Breath Apixaban (Apixaban 5 Mg Tab) 5 mg PO BID [facility] Last Admin: 08/07/21 08:57 Dose: 5 mg Documented by: Aspirin (Aspirin 81 Mg Tab.Ec) 81 mg PO DAILY [facility] Last Admin: 08/07/21 08:58 Dose: 81 mg Documented by: Atorvastatin Calcium (Atorvastatin 20 Mg Tab) 40 mg PO BEDTIME [facility] Last Admin: 08/06/21 20:42 Dose: 40 mg Documented by: Baricitinib (Baricitinib 2 Mg Tab) 4 mg PO DAILY [facility] Stop: 08/13/21 09:01 Last Admin: 08/07/21 08:58 Dose: 4 mg Documented by: Carvedilol (Carvedilol 12.5 Mg Tab) 25 mg PO BID [facility] Last Admin: 08/07/21 08:57 Dose: 25 mg Documented by: Dexamethasone (Dexamethasone 2 Mg Tab) 4 mg PO DAILY [facility] Last Admin: 08/07/21 08:57 Dose: 4 mg Documented by: Guaifenesin/Dextromethorphan (Guaifenesin/Dextromethorphan 100-10 Mg/5 Ml Soln 10 Ml Cup) 10 ml PO Q4H PRN PRN Reason: Cough Last Admin: 08/06/21 22:58 Dose: 10 ml Documented by: Ceftriaxone Sodium 1 gm/ (Sodium Chloride) 50 mls @ 100 mls/hr IV Q24H [facility] Last Admin: 08/06/21 15:04 Dose: 100 mls/hr Documented by: Doxycycline Hyclate 100 mg/ (Sodium Chloride) 100 mls @ 100 mls/hr IV Q12H [facility] Last Admin: 08/07/21 04:09 Dose: 100 mls/hr Documented by: Lisinopril (Lisinopril 20 Mg Tab) 20 mg PO BID [facility] Last Admin: 08/07/21 08:58 Dose: 20 mg Documented by: Lorazepam (Lorazepam 2 Mg/Ml Sdv) 1 mg IV Q6H PRN PRN Reason: Nausea/Vomiting Last Admin: 08/02/21 20:31 Dose: 1 mg Documented by: Mometasone Furoate (Mometasone Furoate Nasal [place] 17 Gm Canister) 0 gm CRISTINA BID [facility] Last Admin: 08/07/21 08:58 Dose: 2 spray Documented by: Mometasone Furoate/Formoterol Fumar (Formoterol/Mometasone 200-5 Mcg 8.8 Gm Inhaler) 0 puff IH Q8H PRN PRN Reason: Shortness of Breath Morphine Sulfate (Morphine 2 Mg/Ml Syringe) 2 mg IVPUSH Q2H PRN PRN Reason: Pain (severe 7-10) Ondansetron HCl (Ondansetron 4 Mg Tab.Dis) 4 mg PO Q6H PRN PRN Reason: Nausea Last Admin: 07/28/21 23:29 Dose: 4 mg Documented by: Oxycodone HCl (Oxycodone 5 Mg Tab) 5 mg PO Q4H PRN PRN Reason: Pain (moderate 4-6) Sodium Chloride (Sodium Chloride 0.9% 10 Ml Syringe) 10 ml FLUSH ASDIRECTED PRN PRN Reason: Keep Vein Open Last Admin: 07/28/21 21:31 Dose: 10 ml Documented by: Sotalol HCl (Sotalol 80 Mg Tab) 80 mg PO BID [facility] Last Admin: 08/07/21 08:57 Dose: 80 mg Documented by: Spironolactone (Spironolactone 25 Mg Tab) 25 mg PO DAILY [facility] Last Admin: 08/07/21 08:57 Dose: 25 mg Documented by: Temazepam (Temazepam 15 Mg Cap) 15 mg PO BEDTIME PRN PRN Reason: Sleep Last Admin: 08/06/21 22:58 Dose: 15 mg Documented by: Discontinued Medications Acetaminophen (Acetaminophen 325 Mg Tab) 650 mg PO Q4H PRN PRN Reason: Fever Greater Than 101 Last Admin: 07/28/21 23:31 Dose: 650 mg Documented by: Dexamethasone (Dexamethasone 4 Mg/Ml Sdv) 6 mg IVPUSH DAILY [facility] Stop: 08/06/21 09:01 Last Admin: 07/28/21 21:29 Dose: 6 mg Documented by: Dexamethasone (Dexamethasone 4 Mg/Ml Sdv) 6 mg IVPUSH Q24H [facility] Stop: 08/06/21 16:01 Last Admin: 08/06/21 15:05 Dose: 6 mg Documented by: Remdesivir 200 mg/ Sodium (Chloride) 250 mls @ 250 mls/hr IV ONETIME ONE Stop: 07/28/21 20:33 Last Admin: 07/28/21 21:33 Dose: 250 mls/hr Documented by: Remdesivir 100 mg/ Sodium (Chloride) 100 mls @ 100 mls/hr IV Q24H [facility] Stop: 08/01/21 17:59 Last Admin: 08/01/21 17:16 Dose: 100 mls/hr Documented by: Lisinopril (Lisinopril 10 Mg Tab) Confirm Administered Dose 20 mg .ROUTE .STK- MED ONE Stop: 07/28/21 23:19 Last Admin: 07/28/21 23:28 Dose: 20 mg Documented by: Mometasone Furoate/Formoterol Fumar (Formoterol/Mometasone 200-5 Mcg 8.8 Gm Inhaler) 0 puff IH Q8H PRN PRN Reason: Shortness of Breath Last Admin: 07/28/21 23:35 Dose: 2 puff Documented by: - Exam Quality Assessment: Supplemental Oxygen General: Alert, Oriented, Cooperative, No Acute Distress Lungs: Normal Respiratory Effort GI/Abdominal Exam: Soft, No Distention Psy/Mental Status: Alert, Normal Affect - Patient Data Result Diagrams: 07/31/21 04:30 08/06/21 04:15 Sepsis Event Note - Evaluation Sepsis Screening Result: No Definite Risk - Focused Exam Vital Signs: Vital Signs Temp Pulse Pulse Resp BP BP Pulse Ox 08/07/21 10:39 35.5 C L 63 18 112/75 94 L 08/07/21 09:29 08/07/21 08:58 125/71 08/07/21 08:57 67 125/71 08/07/21 08:00 08/07/21 07:52 36.0 C L 61 18 120/73 95 08/07/21 07:19 97 08/07/21 04:00 35.3 C L 67 18 124/60 90 L 08/07/21 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 Onset of symptoms 07/22. He has not been vaccinated. Respiratory status steadily improving. Now down to 8 L. -Repeat labs in the morning -Humidified high flow oxygen -Dexamethasone 6 mg daily, day 10, starting taper today -Remdesivir x5 days complete -Add baricitinib 4 mg p.o. daily (day 8 of 14) -7 days of antibiotics complete. -Symptomatic management of cough -Isolation precautions Acute hypoxic respiratory failure-steadily improving as above. -Continue to monitor closely -Management as above Essential hypertension-stable so far. -Continue Lisinopril 20 mg po bid -continue Spironolactone 25 mg po daily Cardiovascular disease - history of cardiac stent x 3, CHF, Cardiomegaly, pacemaker,hyperlipidemia. Stable. -Coreg 25 mg po bid -Lipitor 40 mg daily -Eliquis 5 mg po bid -baby asa Obstructive sleep apnea- home C-pap at night. -continuous pulse ox. -supplemental oxygen Maintenance issues - - DVT prophylaxis - Eliquis 5 mg po bid - GI prophylaxis -PPI - Nutrition -regular Disposition -I would anticipate discharge home after the hospital stay Dung Dey MD
[2021-08-07] MEDS: atorvaSTATin 20 MG Tab PO SCH (20:22)
[2021-08-07] MEDS: Temazepam 15 MG Cap PO PRN (22:29)
[2021-08-07] MEDS: guaiFENesin/Dextromethorphan 100-10 MG/5 ML Soln 10 ML Cup PO PRN (22:29)
[2021-08-08] MEDS: Dexamethasone 2 MG Tab PO SCH (09:43)
[2021-08-08] MEDS: Sotalol 80 MG Tab PO SCH ×2 (09:43→21:48)
[2021-08-08] MEDS: Lisinopril 20 MG Tab PO SCH ×2 (09:44→21:49)
[2021-08-08] MEDS: Mometasone Furoate Nasal Spray 17 GM Canister NAS SCH ×2 (09:45→21:51)
[2021-08-08] MEDS: Aspirin 81 MG Tab.EC PO SCH (09:45)
[2021-08-08] MEDS: Spironolactone 25 MG Tab PO SCH (09:45)
[2021-08-08] MEDS: Carvedilol 12.5 MG Tab PO SCH ×2 (09:45→21:50)
[2021-08-08] MEDS: Apixaban 5 MG Tab PO SCH ×2 (09:45→21:51)
--- NOTE | 2021-08-08 14:49 | PCM.PN ---
- General Info Date of Service: 08/08/21 Subjective Update: Mr. Denson has continued to experience improvement since yesterday with less shortness of breath and improved energy level. Oxygen requirements are slowly decreasing. Functional Status: Reports: Tolerating Diet, Ambulating, Urinating - Review of Systems General: Reports: Weakness, Fatigue. Denies: Fever, Chills Pulmonary: Reports: Shortness of Breath. Denies: Pleuritic Chest Pain, Cough, Sputum, Hemoptysis, Wheezing Cardiovascular: Reports: Dyspnea on Exertion. Denies: Chest Pain, Palpitations, Orthopnea, PND, Edema, Lightheadedness Gastrointestinal: Reports: No Symptoms Genitourinary: Reports: No Symptoms - Patient Data Vitals - Most Recent: Last Vital Signs Temp 95.9 F L 08/08/21 11:27 Pulse 61 08/08/21 11:27 Resp 20 08/08/21 11:27 BP 103/64 08/08/21 11:27 Pulse Ox 98 08/08/21 13:50 Weight - Most Recent: 326 lb I&O - Last 24 Hours: Intake & Output 08/07/21 08/08/21 08/08/21 22:59 06:59 14:59 Intake Total 1100 980 850 Output Total 1500 Balance 1100 -520 850 Med Orders - Current: Current Medications Acetaminophen (Acetaminophen 325 Mg Tab) 650 mg PO Q4H PRN PRN Reason: Fever Greater Than 101 Albuterol (Albuterol 8 Gm Inhaler) 8.5 gm INH Q4H PRN PRN Reason: Shortness of Breath Apixaban (Apixaban 5 Mg Tab) 5 mg PO BID [facility] Last Admin: 08/08/21 09:45 Dose: 5 mg Documented by: Aspirin (Aspirin 81 Mg Tab.Ec) 81 mg PO DAILY [facility] Last Admin: 08/08/21 09:45 Dose: 81 mg Documented by: Atorvastatin Calcium (Atorvastatin 20 Mg Tab) 40 mg PO BEDTIME [facility] Last Admin: 08/07/21 20:22 Dose: 40 mg Documented by: Baricitinib (Baricitinib 2 Mg Tab) 4 mg PO DAILY [facility] Stop: 08/13/21 09:01 Last Admin: 08/08/21 09:45 Dose: 4 mg Documented by: Carvedilol (Carvedilol 12.5 Mg Tab) 25 mg PO BID [facility] Last Admin: 08/08/21 09:45 Dose: 25 mg Documented by: Dexamethasone (Dexamethasone 2 Mg Tab) 4 mg PO DAILY [facility] Last Admin: 08/08/21 09:43 Dose: 4 mg Documented by: Guaifenesin/Dextromethorphan (Guaifenesin/Dextromethorphan 100-10 Mg/5 Ml Soln 10 Ml Cup) 10 ml PO Q4H PRN PRN Reason: Cough Last Admin: 08/07/21 22:29 Dose: 10 ml Documented by: Lisinopril (Lisinopril 20 Mg Tab) 20 mg PO BID [facility] Last Admin: 08/08/21 09:44 Dose: 20 mg Documented by: Lorazepam (Lorazepam 2 Mg/Ml Sdv) 1 mg IV Q6H PRN PRN Reason: Nausea/Vomiting Last Admin: 08/02/21 20:31 Dose: 1 mg Documented by: Mometasone Furoate (Mometasone Furoate Nasal [place] 17 Gm Canister) 0 gm CRISTINA BID [facility] Last Admin: 08/08/21 09:45 Dose: 2 spray Documented by: Mometasone Furoate/Formoterol Fumar (Formoterol/Mometasone 200-5 Mcg 8.8 Gm Inhaler) 0 puff IH Q8H PRN PRN Reason: Shortness of Breath Morphine Sulfate (Morphine 2 Mg/Ml Syringe) 2 mg IVPUSH Q2H PRN PRN Reason: Pain (severe 7-10) Ondansetron HCl (Ondansetron 4 Mg Tab.Dis) 4 mg PO Q6H PRN PRN Reason: Nausea Last Admin: 07/28/21 23:29 Dose: 4 mg Documented by: Oxycodone HCl (Oxycodone 5 Mg Tab) 5 mg PO Q4H PRN PRN Reason: Pain (moderate 4-6) Sodium Chloride (Sodium Chloride 0.9% 10 Ml Syringe) 10 ml FLUSH ASDIRECTED PRN PRN Reason: Keep Vein Open Last Admin: 07/28/21 21:31 Dose: 10 ml Documented by: Sotalol HCl (Sotalol 80 Mg Tab) 80 mg PO BID [facility] Last Admin: 08/08/21 09:43 Dose: 80 mg Documented by: Spironolactone (Spironolactone 25 Mg Tab) 25 mg PO DAILY [facility] Last Admin: 08/08/21 09:45 Dose: 25 mg Documented by: Temazepam (Temazepam 15 Mg Cap) 15 mg PO BEDTIME PRN PRN Reason: Sleep Last Admin: 08/07/21 22:29 Dose: 15 mg Documented by: Discontinued Medications Acetaminophen (Acetaminophen 325 Mg Tab) 650 mg PO Q4H PRN PRN Reason: Fever Greater Than 101 Last Admin: 07/28/21 23:31 Dose: 650 mg Documented by: Dexamethasone (Dexamethasone 4 Mg/Ml Sdv) 6 mg IVPUSH DAILY [facility] Stop: 08/06/21 09:01 Last Admin: 07/28/21 21:29 Dose: 6 mg Documented by: Dexamethasone (Dexamethasone 4 Mg/Ml Sdv) 6 mg IVPUSH Q24H [facility] Stop: 08/06/21 16:01 Last Admin: 08/06/21 15:05 Dose: 6 mg Documented by: Remdesivir 200 mg/ Sodium (Chloride) 250 mls @ 250 mls/hr IV ONETIME ONE Stop: 07/28/21 20:33 Last Admin: 07/28/21 21:33 Dose: 250 mls/hr Documented by: Remdesivir 100 mg/ Sodium (Chloride) 100 mls @ 100 mls/hr IV Q24H [facility] Stop: 08/01/21 17:59 Last Admin: 08/01/21 17:16 Dose: 100 mls/hr Documented by: Ceftriaxone Sodium 1 gm/ (Sodium Chloride) 50 mls @ 100 mls/hr IV Q24H [facility] Last Admin: 08/06/21 15:04 Dose: 100 mls/hr Documented by: Doxycycline Hyclate 100 mg/ (Sodium Chloride) 100 mls @ 100 mls/hr IV Q12H [facility] Last Admin: 08/07/21 04:09 Dose: 100 mls/hr Documented by: Lisinopril (Lisinopril 10 Mg Tab) Confirm Administered Dose 20 mg .ROUTE .STK- MED ONE Stop: 07/28/21 23:19 Last Admin: 07/28/21 23:28 Dose: 20 mg Documented by: Mometasone Furoate/Formoterol Fumar (Formoterol/Mometasone 200-5 Mcg 8.8 Gm Inhaler) 0 puff IH Q8H PRN PRN Reason: Shortness of Breath Last Admin: 07/28/21 23:35 Dose: 2 puff Documented by: - Exam Quality Assessment: Supplemental Oxygen, DVT Prophylaxis General: Alert, Oriented, Cooperative, Mild Distress Lungs: Clear to Auscultation, Normal Respiratory Effort Cardiovascular: Regular Rate, Regular Rhythm, No Murmurs GI/Abdominal Exam: Soft, Non-Tender, No Organomegaly, No Distention Extremities: Non-Tender, No Pedal Edema - Patient Data Result Diagrams: 07/31/21 04:30 08/06/21 04:15 Sepsis Event Note - Evaluation Sepsis Screening Result: No Definite Risk - Focused Exam Vital Signs: Vital Signs Temp Pulse Pulse Resp BP BP Pulse Ox 08/08/21 13:50 98 08/08/21 11:27 95.9 F L 61 20 103/64 94 L 08/08/21 09:45 61 110/66 08/08/21 09:44 110/66 08/08/21 09:43 61 110/66 08/08/21 07:28 96.7 F L 60 16 105/78 95 08/08/21 07:24 95 08/08/21 03:00 96.4 F L 62 18 122/56 L 90 L - Problem List Review Problem List Initiated/Reviewed/Updated: Yes - Plan Plan:: ASSESSMENT AND PLAN - COVID-19 pneumonia-complicated by acute respiratory failure with hypoxia. Onset of symptoms 07/22. He has not been vaccinated. Respiratory status steadily improving. -Humidified high flow oxygen -Dexamethasone 4 mg day, second day of taper -Remdesivir x5 days complete -Add baricitinib 4 mg p.o. daily (day 9 of 14) -7 days of antibiotics complete. -Symptomatic management of cough -Isolation precautions Acute hypoxic respiratory failure-steadily improving as above. -Continue to monitor closely -Management as above Essential hypertension-stable so far. -Continue Lisinopril 20 mg po bid -continue Spironolactone 25 mg po daily Cardiovascular disease - history of cardiac stent x 3, CHF, Cardiomegaly, pacemaker,hyperlipidemia. Stable. -Coreg 25 mg po bid -Lipitor 40 mg daily -Eliquis 5 mg po bid -baby asa Obstructive sleep apnea- home C-pap at night. -continuous pulse ox. -supplemental oxygen Maintenance issues - - DVT prophylaxis - Eliquis 5 mg po bid - GI prophylaxis -PPI - Nutrition -regular Disposition -I would anticipate discharge home after the hospital stay
[2021-08-08] MEDS: atorvaSTATin 20 MG Tab PO SCH (21:49)
[2021-08-08] MEDS: guaiFENesin/Dextromethorphan 100-10 MG/5 ML Soln 10 ML Cup PO PRN (22:04)
[2021-08-08] MEDS: Temazepam 15 MG Cap PO PRN (22:05)
[2021-08-09] MEDS: Aspirin 81 MG Tab.EC PO SCH (08:33)
[2021-08-09] MEDS: Carvedilol 12.5 MG Tab PO SCH ×2 (08:33→20:59)
[2021-08-09] MEDS: Mometasone Furoate Nasal Spray 17 GM Canister NAS SCH ×2 (08:33→21:00)
[2021-08-09] MEDS: Lisinopril 20 MG Tab PO SCH ×2 (08:34→21:29)
[2021-08-09] MEDS: Apixaban 5 MG Tab PO SCH ×2 (08:34→21:29)
[2021-08-09] MEDS: Spironolactone 25 MG Tab PO SCH (08:34)
[2021-08-09] MEDS: Dexamethasone 2 MG Tab PO SCH (08:34)
[2021-08-09] MEDS: Sotalol 80 MG Tab PO SCH ×2 (08:34→20:58)
--- NOTE | 2021-08-09 14:33 | PCM.PN ---
- General Info Date of Service: 08/09/21 Subjective Update: Mr. Denson has shown further improvement over the last 24 hours, now on 2 L of oxygen via nasal cannula. Overall energy level and appetite have continued to improve. He has been ambulating short distances with use of a walker. Functional Status: Reports: Tolerating Diet, Ambulating, Urinating - Review of Systems General: Reports: Weakness, Fatigue. Denies: Fever, Chills Pulmonary: Reports: Shortness of Breath. Denies: Pleuritic Chest Pain, Cough, Sputum, Hemoptysis, Wheezing Cardiovascular: Reports: Dyspnea on Exertion. Denies: Chest Pain, Palpitations, Orthopnea, PND, Edema, Lightheadedness Gastrointestinal: Reports: No Symptoms Genitourinary: Reports: No Symptoms - Patient Data Vitals - Most Recent: Last Vital Signs Temp 96.8 F L 08/09/21 11:08 Pulse 62 08/09/21 11:08 Resp 16 08/09/21 11:08 BP 108/66 08/09/21 11:08 Pulse Ox 94 L 08/09/21 13:08 Weight - Most Recent: 326 lb I&O - Last 24 Hours: Intake & Output 08/08/21 08/09/21 08/09/21 22:59 06:59 14:59 Intake Total 500 600 800 Balance 500 600 800 Med Orders - Current: Current Medications Acetaminophen (Acetaminophen 325 Mg Tab) 650 mg PO Q4H PRN PRN Reason: Fever Greater Than 101 Albuterol (Albuterol 8 Gm Inhaler) 8.5 gm INH Q4H PRN PRN Reason: Shortness of Breath Apixaban (Apixaban 5 Mg Tab) 5 mg PO BID [facility] Last Admin: 08/09/21 08:34 Dose: 5 mg Documented by: Aspirin (Aspirin 81 Mg Tab.Ec) 81 mg PO DAILY [facility] Last Admin: 08/09/21 08:33 Dose: 81 mg Documented by: Atorvastatin Calcium (Atorvastatin 20 Mg Tab) 40 mg PO BEDTIME [facility] Last Admin: 08/08/21 21:49 Dose: 40 mg Documented by: Baricitinib (Baricitinib 2 Mg Tab) 4 mg PO DAILY [facility] Stop: 08/13/21 09:01 Last Admin: 08/09/21 08:34 Dose: 4 mg Documented by: Carvedilol (Carvedilol 12.5 Mg Tab) 25 mg PO BID [facility] Last Admin: 08/09/21 08:33 Dose: 25 mg Documented by: Dexamethasone (Dexamethasone 2 Mg Tab) 4 mg PO DAILY [facility] Last Admin: 08/09/21 08:34 Dose: 4 mg Documented by: Guaifenesin/Dextromethorphan (Guaifenesin/Dextromethorphan 100-10 Mg/5 Ml Soln 10 Ml Cup) 10 ml PO Q4H PRN PRN Reason: Cough Last Admin: 08/08/21 22:04 Dose: 10 ml Documented by: Lisinopril (Lisinopril 20 Mg Tab) 20 mg PO BID [facility] Last Admin: 08/09/21 08:34 Dose: 20 mg Documented by: Lorazepam (Lorazepam 2 Mg/Ml Sdv) 1 mg IV Q6H PRN PRN Reason: Nausea/Vomiting Last Admin: 08/02/21 20:31 Dose: 1 mg Documented by: Mometasone Furoate (Mometasone Furoate Nasal [place] 17 Gm Canister) 0 gm CRISTINA BID [facility] Last Admin: 08/09/21 08:33 Dose: 2 spray Documented by: Mometasone Furoate/Formoterol Fumar (Formoterol/Mometasone 200-5 Mcg 8.8 Gm Inhaler) 0 puff IH Q8H PRN PRN Reason: Shortness of Breath Morphine Sulfate (Morphine 2 Mg/Ml Syringe) 2 mg IVPUSH Q2H PRN PRN Reason: Pain (severe 7-10) Ondansetron HCl (Ondansetron 4 Mg Tab.Dis) 4 mg PO Q6H PRN PRN Reason: Nausea Last Admin: 07/28/21 23:29 Dose: 4 mg Documented by: Oxycodone HCl (Oxycodone 5 Mg Tab) 5 mg PO Q4H PRN PRN Reason: Pain (moderate 4-6) Sodium Chloride (Sodium Chloride 0.9% 10 Ml Syringe) 10 ml FLUSH ASDIRECTED PRN PRN Reason: Keep Vein Open Last Admin: 07/28/21 21:31 Dose: 10 ml Documented by: Sotalol HCl (Sotalol 80 Mg Tab) 80 mg PO BID [facility] Last Admin: 08/09/21 08:34 Dose: 80 mg Documented by: Spironolactone (Spironolactone 25 Mg Tab) 25 mg PO DAILY [facility] Last Admin: 08/09/21 08:34 Dose: 25 mg Documented by: Temazepam (Temazepam 15 Mg Cap) 15 mg PO BEDTIME PRN PRN Reason: Sleep Last Admin: 08/08/21 22:05 Dose: 15 mg Documented by: Discontinued Medications Acetaminophen (Acetaminophen 325 Mg Tab) 650 mg PO Q4H PRN PRN Reason: Fever Greater Than 101 Last Admin: 07/28/21 23:31 Dose: 650 mg Documented by: Dexamethasone (Dexamethasone 4 Mg/Ml Sdv) 6 mg IVPUSH DAILY [facility] Stop: 08/06/21 09:01 Last Admin: 07/28/21 21:29 Dose: 6 mg Documented by: Dexamethasone (Dexamethasone 4 Mg/Ml Sdv) 6 mg IVPUSH Q24H [facility] Stop: 08/06/21 16:01 Last Admin: 08/06/21 15:05 Dose: 6 mg Documented by: Remdesivir 200 mg/ Sodium (Chloride) 250 mls @ 250 mls/hr IV ONETIME ONE Stop: 07/28/21 20:33 Last Admin: 07/28/21 21:33 Dose: 250 mls/hr Documented by: Remdesivir 100 mg/ Sodium (Chloride) 100 mls @ 100 mls/hr IV Q24H [facility] Stop: 08/01/21 17:59 Last Admin: 08/01/21 17:16 Dose: 100 mls/hr Documented by: Ceftriaxone Sodium 1 gm/ (Sodium Chloride) 50 mls @ 100 mls/hr IV Q24H [facility] Last Admin: 08/06/21 15:04 Dose: 100 mls/hr Documented by: Doxycycline Hyclate 100 mg/ (Sodium Chloride) 100 mls @ 100 mls/hr IV Q12H [facility] Last Admin: 08/07/21 04:09 Dose: 100 mls/hr Documented by: Lisinopril (Lisinopril 10 Mg Tab) Confirm Administered Dose 20 mg .ROUTE .STK- MED ONE Stop: 07/28/21 23:19 Last Admin: 07/28/21 23:28 Dose: 20 mg Documented by: Mometasone Furoate/Formoterol Fumar (Formoterol/Mometasone 200-5 Mcg 8.8 Gm Inhaler) 0 puff IH Q8H PRN PRN Reason: Shortness of Breath Last Admin: 07/28/21 23:35 Dose: 2 puff Documented by: - Exam Quality Assessment: Supplemental Oxygen, DVT Prophylaxis General: Alert, Oriented, Cooperative, Mild Distress Lungs: Clear to Auscultation, Normal Respiratory Effort Cardiovascular: Regular Rate, Regular Rhythm, No Murmurs GI/Abdominal Exam: Soft, Non-Tender, No Organomegaly, No Distention Extremities: Non-Tender, No Pedal Edema - Patient Data Result Diagrams: 07/31/21 04:30 08/06/21 04:15 Sepsis Event Note - Evaluation Sepsis Screening Result: No Definite Risk - Focused Exam Vital Signs: Vital Signs Temp Pulse Pulse Resp BP BP Pulse Ox 08/09/21 13:08 94 L 08/09/21 11:08 96.8 F L 62 16 108/66 95 08/09/21 10:20 96 08/09/21 08:34 62 120/78 08/09/21 08:33 62 120/78 08/09/21 07:23 97 08/09/21 07:12 97.3 F 62 120/78 93 L 08/09/21 03:00 96.2 F L 60 16 121/59 L 94 L - Problem List Review Problem List Initiated/Reviewed/Updated: Yes - My Orders Last 24 Hours: My Active Orders 08/09/21 14:07 Evaluate for Home Oxygen [RT Evaluate for Home Oxygen] [RC] Click to Edit - Plan Plan:: ASSESSMENT AND PLAN - COVID-19 pneumonia-complicated by acute respiratory failure with hypoxia. Onset of symptoms 07/22. He has not been vaccinated. Respiratory status steadily improving. -2 L of oxygen via nasal cannula -Dexamethasone 4 mg day, forth day of taper -Remdesivir x5 days complete -baricitinib 4 mg p.o. daily (day 10 of 14) -7 days of antibiotics complete. -Symptomatic management of cough -Isolation precautions Acute hypoxic respiratory failure-steadily improving as above. -Continue to monitor closely -Management as above Essential hypertension-stable so far. -Continue Lisinopril 20 mg po bid -continue Spironolactone 25 mg po daily Cardiovascular disease - history of cardiac stent x 3, CHF, Cardiomegaly, pacemaker,hyperlipidemia. Stable. -Coreg 25 mg po bid -Lipitor 40 mg daily -Eliquis 5 mg po bid -baby asa Obstructive sleep apnea- home C-pap at night. -continuous pulse ox. -supplemental oxygen Maintenance issues - - DVT prophylaxis - Eliquis 5 mg po bid - GI prophylaxis -PPI - Nutrition -regular Disposition -I would anticipate discharge home after the hospital stay
[2021-08-09] MEDS ORDERED: Lisinopril 10 MG Tab ONE (20:59)
[2021-08-09] MEDS: atorvaSTATin 20 MG Tab PO SCH (20:59)
[2021-08-09] MEDS: guaiFENesin/Dextromethorphan 100-10 MG/5 ML Soln 10 ML Cup PO PRN (21:30)
[2021-08-09] MEDS: Temazepam 15 MG Cap PO PRN (21:30)
[2021-08-10] MEDS: Lisinopril 20 MG Tab PO SCH (09:48)
[2021-08-10] MEDS: Apixaban 5 MG Tab PO SCH (09:48)
[2021-08-10] MEDS: Aspirin 81 MG Tab.EC PO SCH (09:49)
[2021-08-10] MEDS: Dexamethasone 2 MG Tab PO SCH (09:49)
[2021-08-10] MEDS: Carvedilol 12.5 MG Tab PO SCH (09:49)
[2021-08-10] MEDS: Sotalol 80 MG Tab PO SCH (09:49)
[2021-08-10] MEDS: Mometasone Furoate Nasal Spray 17 GM Canister NAS SCH (09:50)
[2021-08-10] MEDS: Spironolactone 25 MG Tab PO SCH (09:51)
[2021-08-10 11:48] VITALS: BP 108/57; PULSE 68
--- NOTE | 2021-08-10 13:42 | PCM.DCSUM1 ---
Discharge Summary - Hospital Course Brief History: Mr. Denson is a 61-year-old gentleman who was admitted through the emergency department with weakness, anorexia, shortness of breath, and hypoxia, secondary to COVID-19 infection. - Discharge Data Discharge Date: 08/10/21 Discharge Disposition: Home, W Home Health Agency 06 Condition: Fair - Referral to Home Health Date of Face to Face Encounter: 08/10/21 Reason for Homebound Status: COVID-19 infection, hypoxia, weakness Primary Care Physician: Denny Gaviria MD Skilled Need: Home health nurse, nurse aide, PT/OT - Discharge Diagnosis/Problem(s) (1) ARDS (adult respiratory distress syndrome) SNOMED Code(s): 54558409, 93201119 ICD Code: J80 - ACUTE RESPIRATORY DISTRESS SYNDROME Status: Acute Current Visit: Yes (2) Acute respiratory failure with hypoxia SNOMED Code(s): 71316306, 452148989 ICD Code: J96.01 - ACUTE RESPIRATORY FAILURE WITH HYPOXIA Status: Acute Current Visit: Yes (3) Pneumonia due to COVID-19 virus SNOMED Code(s): 631261742134649724 ICD Code: U07.1 - COVID-19; J12.82 - PNEUMONIA DUE TO CORONAVIRUS DISEASE 2019 Status: Acute Priority: High Current Visit: Yes (4) Morbid obesity with BMI of 45.0-49.9, adult SNOMED Code(s): 034835890, 418698972 ICD Code: Z68.42 - BODY MASS INDEX [BMI] 45.0-49.9, ADULT Status: Chronic Current Visit: No - Patient Summary/Data Consults: Consultations 08/08/21 07:00 PT Evaluation and Treatment [CONS] Routine Please Evaluate and Treat. PT Reason for Consult: Strengthening This query below is only for informational purposes and is not editable. Admission Diagnosis/Problem: Pneumonia Hospital Course: Mr. Denson is a 61-year-old gentleman who was admitted through the emergency department with weakness, anorexia, hypoxia, and shortness of breath, secondary to COVID-19 infection. Symptoms began approximately 1 week prior to admission. For deep few days prior to admission he developed increased respiratory symptoms with cough and shortness of breath. He reported on initial evaluation that he was unvaccinated. In the emergency department he was found to have pulmonary infiltrates consistent with Covid infection and was noted to be hypoxic requiring supplemental oxygen. Testing for COVID-19 was positive. He was started on remdesivir and Decadron while in the emergency department. He was admitted to the hospital and continued on remdesivir and Decadron. He has been treated with Eliquis for management of thromboembolic risk related to his underlying atrial fibrillation. This was continued during hospitalization and felt to provide excellent DVT prophylaxis. So he was not started on enoxaparin. During the first few days of hospitalization his oxygen requirements i ncreased, to the point that he was placed on high flow humidified oxygen. Because of progression of hypoxia he was started on a 7-day course of IV antibiotic therapy appropriate for community-acquired pneumonia and was also started on baricitinib daily. After several days of borderline oxygenation he did begin to improve with increased energy level and appetite. Oxygenation improved significantly and by the time of discharge he was requiring 2 L of oxygen via nasal cannula. He was qualified for home to on the day prior to discharge when he was noted to have an oxygen saturation of 88% while resting on room air. He will be discharged home with oxygen 2 L/min via nasal cannula. Activity will be as tolerated and he will remain on a heart healthy diet. Home health care services including physical therapy and Occupational Therapy will be arranged for him after discharge. Follow-up appointment should be scheduled with his primary care provider within 1 week. - Patient Instructions Diet: Heart Healthy Diet Activity: As Tolerated Other/Special Instructions: Please arrange for home oxygen 2 L/min via nasal cannula. Please schedule follow-up appointment with Dr. Gaviria within 1 week. - Discharge Plan *PRESCRIPTION DRUG MONITORING PROGRAM REVIEWED*: Not Applicable *COPY OF PRESCRIPTION DRUG MONITORING REPORT IN PATIENT DIANA: Not Applicable Home Medications: Home Meds Aspirin 81 mg PO DAILY 01/12/16 [History] atorvaSTATin [Lipitor] 40 mg PO ONETIME 04/14/16 [History] Lisinopril 20 mg PO BID 04/24/19 [History] Spironolactone [Aldactone] 25 mg PO DAILY 04/24/19 [History] carvediloL [Coreg] 25 mg PO BID 04/24/19 [History] Albuterol Sulfate [Albuterol Sulfate Hfa] 8.5 gm IH Q4H PRN 07/28/21 [History] Apixaban [Eliquis] 5 mg PO DAILY 10/28/21 [History] Fluticasone Propion/Salmeterol [Advair Hfa 230-21 Mcg Inhaler] 2 puff IH Q8H PRN 07/28/21 [History] Ondansetron [Zofran ODT] 4 mg PO Q6H PRN 07/28/21 [History] Sotalol [Betapace] 80 mg PO BID 07/28/21 [History] Oxygen Therapy Mode: Nasal Cannula Oxygen Flow Rate (L/min): 2 Patient Handouts: Hypoxia, COVID-19 Referrals: Denny Gaviria MD [Primary Care Provider] - 08/18/21 1:30 pm (Please arrive 15 minutes early to register for your appointment.) - Discharge Summary/Plan Comment DC Time >30 min.: No Total # of Minutes for Discharge Time: 20 - Patient Data Vitals - Most Recent: Last Vital Signs Temp 96.4 F L 08/10/21 11:47 Pulse 68 08/10/21 11:47 Resp 18 08/10/21 11:47 BP 108/57 L 08/10/21 11:47 Pulse Ox 90 L 08/10/21 13:08 Weight - Most Recent: 326 lb I&O - Last 24 hours: Intake & Output 08/09/21 08/10/21 08/10/21 22:59 06:59 14:59 Intake Total 800 600 Balance 800 600 Med Orders - Current: Current Medications Acetaminophen (Acetaminophen 325 Mg Tab) 650 mg PO Q4H PRN PRN Reason: Fever Greater Than 101 Albuterol (Albuterol 8 Gm Inhaler) 8.5 gm INH Q4H PRN PRN Reason: Shortness of Breath Apixaban (Apixaban 5 Mg Tab) 5 mg PO BID [facility] Last Admin: 08/10/21 09:48 Dose: 5 mg Documented by: Aspirin (Aspirin 81 Mg Tab.Ec) 81 mg PO DAILY [facility] Last Admin: 08/10/21 09:49 Dose: 81 mg Documented by: Atorvastatin Calcium (Atorvastatin 20 Mg Tab) 40 mg PO BEDTIME [facility] Last Admin: 08/09/21 20:59 Dose: 40 mg Documented by: Baricitinib (Baricitinib 2 Mg Tab) 4 mg PO DAILY [facility] Stop: 08/13/21 09:01 Last Admin: 08/10/21 09:50 Dose: 4 mg Documented by: Carvedilol (Carvedilol 12.5 Mg Tab) 25 mg PO BID [facility] Last Admin: 08/10/21 09:49 Dose: 25 mg Documented by: Dexamethasone (Dexamethasone 2 Mg Tab) 4 mg PO DAILY [facility] Last Admin: 08/10/21 09:49 Dose: 4 mg Documented by: Guaifenesin/Dextromethorphan (Guaifenesin/Dextromethorphan 100-10 Mg/5 Ml Soln 10 Ml Cup) 10 ml PO Q4H PRN PRN Reason: Cough Last Admin: 08/09/21 21:30 Dose: 10 ml Documented by: Lisinopril (Lisinopril 20 Mg Tab) 20 mg PO BID [facility] Last Admin: 08/10/21 09:48 Dose: 20 mg Documented by: Lorazepam (Lorazepam 2 Mg/Ml Sdv) 1 mg IV Q6H PRN PRN Reason: Nausea/Vomiting Last Admin: 08/02/21 20:31 Dose: 1 mg Documented by: Mometasone Furoate (Mometasone Furoate Nasal [place] 17 Gm Canister) 0 gm CRISTINA BID [facility] Last Admin: 08/10/21 09:50 Dose: 2 spray Documented by: Mometasone Furoate/Formoterol Fumar (Formoterol/Mometasone 200-5 Mcg 8.8 Gm Inhaler) 0 puff IH Q8H PRN PRN Reason: Shortness of Breath Morphine Sulfate (Morphine 2 Mg/Ml Syringe) 2 mg IVPUSH Q2H PRN PRN Reason: Pain (severe 7-10) Ondansetron HCl (Ondansetron 4 Mg Tab.Dis) 4 mg PO Q6H PRN PRN Reason: Nausea Last Admin: 07/28/21 23:29 Dose: 4 mg Documented by: Oxycodone HCl (Oxycodone 5 Mg Tab) 5 mg PO Q4H PRN PRN Reason: Pain (moderate 4-6) Sodium Chloride (Sodium Chloride 0.9% 10 Ml Syringe) 10 ml FLUSH ASDIRECTED PRN PRN Reason: Keep Vein Open Last Admin: 07/28/21 21:31 Dose: 10 ml Documented by: Sotalol HCl (Sotalol 80 Mg Tab) 80 mg PO BID [facility] Last Admin: 08/10/21 09:49 Dose: 80 mg Documented by: Spironolactone (Spironolactone 25 Mg Tab) 25 mg PO DAILY [facility] Last Admin: 08/10/21 09:51 Dose: 25 mg Documented by: Temazepam (Temazepam 15 Mg Cap) 15 mg PO BEDTIME PRN PRN Reason: Sleep Last Admin: 08/09/21 21:30 Dose: 15 mg Documented by: Discontinued Medications Acetaminophen (Acetaminophen 325 Mg Tab) 650 mg PO Q4H PRN PRN Reason: Fever Greater Than 101 Last Admin: 07/28/21 23:31 Dose: 650 mg Documented by: Dexamethasone (Dexamethasone 4 Mg/Ml Sdv) 6 mg IVPUSH DAILY [facility] Stop: 08/06/21 09:01 Last Admin: 07/28/21 21:29 Dose: 6 mg Documented by: Dexamethasone (Dexamethasone 4 Mg/Ml Sdv) 6 mg IVPUSH Q24H [facility] Stop: 08/06/21 16:01 Last Admin: 08/06/21 15:05 Dose: 6 mg Documented by: Remdesivir 200 mg/ Sodium (Chloride) 250 mls @ 250 mls/hr IV ONETIME ONE Stop: 07/28/21 20:33 Last Admin: 07/28/21 21:33 Dose: 250 mls/hr Documented by: Remdesivir 100 mg/ Sodium (Chloride) 100 mls @ 100 mls/hr IV Q24H [facility] Stop: 08/01/21 17:59 Last Admin: 08/01/21 17:16 Dose: 100 mls/hr Documented by: Ceftriaxone Sodium 1 gm/ (Sodium Chloride) 50 mls @ 100 mls/hr IV Q24H [facility] Last Admin: 08/06/21 15:04 Dose: 100 mls/hr Documented by: Doxycycline Hyclate 100 mg/ (Sodium Chloride) 100 mls @ 100 mls/hr IV Q12H [facility] Last Admin: 08/07/21 04:09 Dose: 100 mls/hr Documented by: Lisinopril (Lisinopril 10 Mg Tab) Confirm Administered Dose 20 mg .ROUTE .STK- MED ONE Stop: 07/28/21 23:19 Last Admin: 07/28/21 23:28 Dose: 20 mg Documented by: Lisinopril (Lisinopril 10 Mg Tab) Confirm Administered Dose 20 mg .ROUTE .STK- MED ONE Stop: 08/09/21 21:00 Last Admin: 08/09/21 21:29 Dose: Not Given Documented by: Mometasone Furoate/Formoterol Fumar (Formoterol/Mometasone 200-5 Mcg 8.8 Gm Inhaler) 0 puff IH Q8H PRN PRN Reason: Shortness of Breath Last Admin: 07/28/21 23:35 Dose: 2 puff Documented by: - Exam Quality Assessment: Reports: Supplemental Oxygen, DVT Prophylaxis General: Reports: Alert, Oriented, Cooperative, Mild Distress Lungs: Reports: Clear to Auscultation, Normal Respiratory Effort, Decreased Breath Sounds Cardiovascular: Reports: Regular Rate, No Murmurs, Irregular Rhythm GI/Abdominal Exam: Soft, Non-Tender, No Organomegaly, No Distention Extremities: Non-Tender, No Pedal Edema
== END 2021-08-10 14:33 | disposition home health service (06) | DRG 137 ==
LOC: JP.ED 17:34 → EEVIPCON 20:53 → JP.2SS 20:53
PROVIDERS: ADMIT Hospitalist; ATTEND Internal Medicine
PROC: XW033E5 Introduction of Remdesivir Anti-infective into Peripheral Vein, Percutaneous Approach, New Technology Group 5 (ICD-10-PCS; principal; 2021-07-28)
PROC: 3E0DX3Z Introduction of Anti-inflammatory into Mouth and Pharynx, External Approach (ICD-10-PCS; 2021-07-28)
PROC: XW0DXM6 Introduction of Baricitinib into Mouth and Pharynx, External Approach, New Technology Group 6 (ICD-10-PCS; 2021-07-28)
PROC: 8E0ZXY6 Isolation (ICD-10-PCS; 2021-07-28)
DX: U07.1 COVID-19 (principal); J12.82 Pneumonia due to coronavirus disease 2019; J80 Acute respiratory distress syndrome; Z68.42 Body mass index [BMI] 45.0-49.9, adult; I48.91 Unspecified atrial fibrillation; I50.43 Acute on chronic combined systolic (congestive) and diastolic (congestive) heart failure; I25.10 Atherosclerotic heart disease of native coronary artery without angina pectoris; G47.33 Obstructive sleep apnea (adult) (pediatric); E66.01 Morbid (severe) obesity due to excess calories; I11.0 Hypertensive heart disease with heart failure; E78.00 Pure hypercholesterolemia, unspecified; G89.29 Other chronic pain; M54.9 Dorsalgia, unspecified; Z86.16 Personal history of COVID-19; Z79.01 Long term (current) use of anticoagulants; Z79.82 Long term (current) use of aspirin; Z79.899 Other long term (current) drug therapy; Z95.0 Presence of cardiac pacemaker; Z95.5 Presence of coronary angioplasty implant and graft; Z99.81 Dependence on supplemental oxygen; Z86.19 Personal history of other infectious and parasitic diseases; Z90.49 Acquired absence of other specified parts of digestive tract
CPT/HCPCS: 36415; 36600; 71045; 71045-26; 80048; 80053; 80076; 81001; 82550; 82728; 82803; 83605; 83735; 83880; 84145; 85025; 85379; 85610; 86140; 87040; 94640; 94762; 97110-GP; 97162-GP; 97530-GP; 97535-GP; 99223; 99231; 99232; 99233; 99238; 99285-25; A9270-GY; J0696; J1100; J2060; J3490; J7050; J8540

== ENCOUNTER 2022-01-07 19:36 | Emergency (ER) | payer BC ==
[2022-01-07] MEDS ORDERED: Sodium Chloride 0.9% 10 ML Syringe FLUSH PRN (19:41)
[2022-01-07 21:03] VITALS: BP 101/50; PULSE 66
== END 2022-01-07 21:19 | disposition home or self-care (01) ==
LOC: JP.ED 19:36
DX: I49.3 Ventricular premature depolarization (principal); I42.0 Dilated cardiomyopathy; E07.81 Sick-euthyroid syndrome; G47.33 Obstructive sleep apnea (adult) (pediatric); I11.0 Hypertensive heart disease with heart failure; I50.9 Heart failure, unspecified; E66.01 Morbid (severe) obesity due to excess calories; Z68.42 Body mass index [BMI] 45.0-49.9, adult; Z79.01 Long term (current) use of anticoagulants
CPT/HCPCS: 36415; 80053; 83735; 84439; 84443; 84484; 85025; 93005; 93010; 99283; 99285-25

== ENCOUNTER 2025-02-03 03:32 | Emergency (ER) | payer BC ==
[2025-02-03 03:45] VITALS: BP 136/77; PULSE 62
[2025-02-03] MEDS: Sodium Chloride 0.9% 10 ML Syringe FLUSH PRN (04:10)
[2025-02-03] MEDS: Ondansetron 4 MG/2 ML SDV IVPUSH ONE (04:10)
[2025-02-03] MEDS: Morphine 4 MG/ML Syringe IVPUSH ONE (04:10)
[2025-02-03 04:15] LABS: BASOPHILS ABSOLUTE AUTO 0.05 K/uL (0.00-0.10); BASOPHILS PERCENT AUTO 0.7 % (0.1-1.3); EOSINOPHILS ABSOLUTE AUTO 0.34 K/uL (0.00-0.40); EOSINOPHILS PERCENT AUTO 4.5 % (0.0-5.4); HEMATOCRIT 39.6 % (38.4-49.7); HEMOGLOBIN 13.5 g/dL (12.9-16.9); IMMATURE GRAN PERCENT AUTO 0.3 % (0.0-0.7); LYMPHOCYTES ABSOLUTE AUTO 1.94 K/uL (0.8-3.3); LYMPHOCYTES PERCENT AUTO 25.5 % (11.4-47.7); MEAN CORPUSCULAR HEMOGLOBIN 30.5 pg (31.6-35.5); MEAN CORPUSCULAR HGB CONC 34.1 g/dL (31.6-35.5); MEAN CORPUSCULAR VOLUME 89.4 fL (81.4-99.0); MONOCYTES ABSOLUTE AUTO 0.81 K/uL (0.20-0.90); MONOCYTES PERCENT AUTO 10.6 % (3.3-12.6); NEUTROPHILS ABSOLUTE AUTO 4.46 K/uL (1.0-7.6); NEUTROPHILS PERCENT AUTO 58.4 % (40.0-78.1); PLATELET COUNT,PLT 175 K/uL (130-375); RED BLOOD CELL COUNT 4.43 M/uL (4.14-5.76); WHITE BLOOD CELL COUNT,WBC 7.6 K/uL (3.2-11.0)
[2025-02-03 04:31] LABS: IMMATURE GRAN ABSOLUTE AUTO 0.02 K/uL (0.00-0.23)
[2025-02-03 04:34] LABS: A/G RATIO 1.2 (1.2-2.2); ALANINE AMINOTRANSFERASE,ALT 26 U/L (12-78); ALBUMIN 3.8 g/dL (3.4-5.0); ALKALINE PHOSPHATASE 95 U/L (46-116); ANION GAP 11.2 mmol/L (5.0-14.0); ASPARTATE AMNIOTRANSFERASE,AST 16 U/L (15-37); BILIRUBIN TOTAL 0.7 mg/dL (0.2-1.0); BLOOD UREA NITROGEN,BUN 30 mg/dL (7-18); CARBON DIOXIDE,CO2 26 mmol/L (21-32); CHLORIDE,CL 105 mmol/L (100-108); CREATININE 0.8 mg/dL (0.8-1.3); EST CRCL DRUG DOSING (CG) 101.04 mL/min; ESTIMATED GFR 98 mL/min (>60); GLUCOSE RANDOM 113 mg/dL (74-106); POTASSIUM,K 4.1 mmol/L (3.6-5.2); SODIUM,NA 142 mmol/L (140-148); TROPONIN I HIGH SENSITIVITY 12.5 pg/mL (<=60.3)
== END 2025-02-03 05:07 | disposition home or self-care (01) ==
LOC: JP.ED 03:32
DX: S29.9XXA Unspecified injury of thorax, initial encounter (principal); E66.9 Obesity, unspecified; Z95.0 Presence of cardiac pacemaker; Z79.899 Other long term (current) drug therapy; Z79.82 Long term (current) use of aspirin; Z79.01 Long term (current) use of anticoagulants; Z86.16 Personal history of COVID-19; Z90.49 Acquired absence of other specified parts of digestive tract; W19.XXXA Unspecified fall, initial encounter; Z68.41 Body mass index [BMI] 40.0-44.9, adult
CPT/HCPCS: 36415; 71046; 80053; 84484; 85025; 93005; 96374; 96375; 99284; J2270; J2405